=== PATIENT | male | born 1935 | race Caucasian/White ===

== ENCOUNTER 2017-09-14 19:39 | Emergency (ER) | payer MEDICARE, OTHER ==
[2017-09-14] MEDS ORDERED: DIPH,PERTUS(ACELL)TETVAC-LF 0.5 ML VIAL IM ONE (20:25)
[2017-09-14] MEDS ORDERED: TOPICAL SKIN ADHESIVE 1 EACH AMP TOPICAL ONE (20:25)
--- NOTE | 2017-09-14 21:20 | ED ---
Fall HPI - General Chief Complaint: Fall Stated Complaint: fall/arm lac Time Seen by Provider: 09/14/17 20:20 Source: patient, RN notes reviewed, old records reviewed Mode of arrival: wheelchair - History of Present Illness Initial Comments: 82-year-old male presents and emergency department today to complain of skin tears over his left forearm. Your boys he was walking and tripped he. He reports he landed with in his left forearm on the wall and counter. He is on blood thinners. No other injuries. HE does not know if tetanus is up todate. - Related Data Home Medications Medication Instructions Recorded Confirmed Atorvastatin [Lipitor] 80 mg PO HS 01/31/15 09/14/17 Clopidogrel Bisulfate [Clopidogrel] 75 mg PO DAILY 01/31/15 09/14/17 Lisinopril 20 mg PO QAM 01/31/15 09/14/17 Multivitamins, Thera [Multivitamin 1 tab PO DAILY 01/31/15 09/14/17 (formulary)] Selenium 200 mcg PO DAILY 01/31/15 09/14/17 Donepezil HCl [Aricept] 10 mg PO HS 09/17/15 09/14/17 Lycopene 10 mg PO DAILY 09/14/17 09/14/17 Turmeric Root Extract [Turmeric] 1,000 mg PO DAILY 09/14/17 09/14/17 Allergies Allergy/AdvReac Type Severity Reaction Status Date / Time No Known Allergies Allergy Verified 09/14/17 20:21 Review of Systems ROS Statement: Those systems with pertinent positive or pertinent negative responses have been documented in the HPI. ROS Other: All systems not noted in ROS Statement are negative. Past Medical History Past Medical History: Cancer, Dementia, Hyperlipidemia, Hypertension, Memory Impairment, Osteoarthritis (OA), Prostate Disorder, Vascular Disorder Additional Past Medical History / Comment(s): hx prostates and skin cancer, PAST ASBETOES EXPOSURE History of Any Multi-Drug Resistant Organisms: None Reported Past Surgical History: Appendectomy, Joint Replacement Additional Past Surgical History / Comment(s): 02/12/15 Total L hip arthroplasty. removal of skin cancer from face, mass removed from base of spine , vascular surgery leg, jabari cataracts, 6-13-16 TOTAL RT HIP Past Anesthesia/Blood Transfusion Reactions: No Reported Reaction Past Psychological History: Depression Smoking Status: Former smoker Past Alcohol Use History: Occasional Past Drug Use History: None Reported - Past Family History Brother(s) Family Medical History: Deep Vein Thrombosis (DVT) Mother Family Medical History: No Reported History Father Additional Family Medical History / Comment(s): AT AGE 50 General Exam - General Exam Comments Initial Comments: Well appearing 82 year old male, no distress. Limitations: no limitations General appearance: alert, in no apparent distress Head exam: Present: atraumatic, normocephalic, normal inspection Eye exam: Present: normal appearance, PERRL, EOMI. Absent: scleral icterus, conjunctival injection, periorbital swelling ENT exam: Present: normal exam, mucous membranes moist Neck exam: Present: normal inspection. Absent: tenderness, meningismus, lymphadenopathy Respiratory exam: Present: normal lung sounds bilaterally. Absent: respiratory distress, wheezes, rales, rhonchi, stridor Cardiovascular Exam: Present: regular rate, normal rhythm, normal heart sounds. Absent: systolic murmur, diastolic murmur, rubs, gallop, clicks GI/Abdominal exam: Present: soft, normal bowel sounds. Absent: distended, tenderness, guarding, rebound, rigid Extremities exam: Present: normal inspection, full ROM, normal capillary refill , other (2 2cm skin tears over left forearm. ). Absent: tenderness, pedal edema , joint swelling, calf tenderness Back exam: Present: normal inspection Course Vital Signs 09/14/17 09/14/17 19:42 21:37 Temperature 98.5 F 97.6 F Pulse Rate 73 78 Respiratory 18 16 Rate Blood Pressure 183/77 157/78 O2 Sat by Pulse 99 99 Oximetry Procedures - Laceration Laceration #1 Indication: laceration Site: upper extremity (forearm) Size (cm): 2 Description: linear Depth: simple, single layer Pre-repair: wound explored, irrigated extensively Type of Sutures: other (steri strips) Number of Sutures: 2 Patient Tolerated Procedure: well, no complications Laceration #2 Site: upper extremity (left proximal forearm, ) Size (cm): 3 Description: flap Depth: simple, single layer Pre-repair: wound explored, irrigated extensively Type of Sutures: other (dermabond) Size of Sutures: other Patient Tolerated Procedure: well, no complications Additional Comments: Also used wound seal to stop bleeding. Medical Decision Making - Medical Decision Making 82-year-old male presents and emergency department today to complain of skin tears over his left forearm. Your boys he was walking and tripped he. He reports he landed with in his left forearm on the wall and counter. He is on blood thinners, wound was cleaned.Patient was given tetanus shot. Patient wound continued to bleed, wound seal was used to help form clot. Patient first wound is closed with steri strips, second with demrabond. Discussed Monitoring for infection and wound care. Disposition Clinical Impression: Skin tear Disposition: HOME SELF-CARE Condition: Good Instructions: Fall Prevention for Older Adults (ED), Skin Tear (ED) Additional Instructions: The wound covered for the first 24-48 hours. Shower with a strainer over the site. Afterwards he taken off monitor for any signs of infection including redness swelling or drainage. Cleanse it very gently with water. Patient only should wear a bandage over the area to prevent reopening. Is patient prescribed a controlled substance at d/c from ED?: No When asked, does pt state using other controlled substances?: No If prescribed controlled substance>3 days was MAPS reviewed?: No If opioid is for acute pain is fill amount 7 days or less?: No If Rx opioid, was Start Talking consent form obtained?: No Referrals: Michael Hart MD [Primary Care Provider] - 1-2 days Time of Disposition: 21:19
[2017-09-14 21:39] VITALS: BP 157/78; PULSE 78; RESP 16; TEMP 97.6
== END 2017-09-14 21:39 | disposition home or self-care (01) ==
LOC: EC 19:39
DX: S51.812A Laceration without foreign body of left forearm, initial encounter (principal); F03.90 Unspecified dementia, unspecified severity, without behavioral disturbance, psychotic disturbance, mood disturbance, and anxiety; E78.5 Hyperlipidemia, unspecified; I10 Essential (primary) hypertension; F32.9 Major depressive disorder, single episode, unspecified; Z23 Encounter for immunization; Z79.02 Long term (current) use of antithrombotics/antiplatelets; Z79.899 Other long term (current) drug therapy; Z87.891 Personal history of nicotine dependence; W01.198A Fall on same level from slipping, tripping and stumbling with subsequent striking against other object, initial encounter; Y93.01 Activity, walking, marching and hiking; Y92.009 Unspecified place in unspecified non-institutional (private) residence as the place of occurrence of the external cause
CPT/HCPCS: 12002; 90471; 90715; 99283

== ENCOUNTER → 2018-01-04 | Outpatient (CLI) | payer MEDICARE, OTHER ==
--- NOTE | 2018-01-04 14:34 | XR ---
EXAMINATION TYPE: XR chest 2V DATE OF EXAM: 01/04/2018 COMPARISON: Prior chest x-ray 02/14/2015 HISTORY: Cough TECHNIQUE: Frontal and lateral views of the chest are obtained. FINDINGS: There is no focal air space opacity, pleural effusion, or pneumothorax seen. The cardiac silhouette size is within normal limits. The osseous structures are intact. IMPRESSION: No acute cardiopulmonary process.
== END | disposition home or self-care (01) ==
LOC: RADXRMAIN 12:07
PROVIDERS: ATTEND Internal Medicine
DX: R05 Cough (principal)
CPT/HCPCS: 71046

== ENCOUNTER → 2018-01-28 | Outpatient (CLI) | payer MEDICARE, OTHER ==
--- NOTE | 2018-01-29 10:48 | ECHOF ---
Referral Reason:R06.02 Shortness Of Breath MEASUREMENTS -------- HEIGHT: 175.3 cm WEIGHT: 68.9 kg BP: 201/89 RVIDd: 2.7 cm (< 3.3) IVSd: 1.2 cm (0.6 - 1.1) LVIDd: 4.4 cm (3.9 - 5.3) LVPWd: 1.2 cm (0.6 - 1.1) IVSs: 1.7 cm LVIDs: 2.5 cm LVPWs: 1.4 cm LA Diam: 3.0 cm (2.7 - 3.8) LAESV Index (A-L): 20.62 ml/m Ao Diam: 3.2 cm (2.0 - 3.7) AV Cusp: 1.9 cm (1.5 - 2.6) MV EXCURSION: 16.594 mm (> 18.000) MV EF SLOPE: 68 mm/s (70 - 150) EPSS: 0.1 cm MV E Singh: 0.69 m/s MV DecT: 237 ms MV A Singh: 0.87 m/s MV E/A Ratio: 0.79 FINDINGS -------- Sinus rhythm. This was a technically adequate study. The left ventricular size is normal. There is borderline concentric left ventricular hypertrophy. Overall left ventricular systolic function is normal with, an EF between 55 - 60 %. The right ventricle is normal in size. The left atrial size is normal. The right atrium is normal in size. There is mild aortic valve sclerosis. The mitral valve leaflets are mildly thickened. Mild mitral annular calcification present. There is trace to mild mitral regurgitation. The tricuspid valve appears structurally normal. The pulmonic valve was not well visualized. The aortic root size is normal. Normal inferior vena cava with normal inspiratory collapse consistent with estimated right atrial pre ssure of 5 mmHg. There is no pericardial effusion. CONCLUSIONS -------- 1. Sinus rhythm. 2. This was a technically adequate study. 3. The left ventricular size is normal. 4. There is borderline concentric left ventricular hypertrophy. 5. Overall left ventricular systolic function is normal with, an EF between 55 - 60 %. 6. The right ventricle is normal in size. 7. The left atrial size is normal. 8. The right atrium is normal in size. 9. There is mild aortic valve sclerosis. 10. The mitral valve leaflets are mildly thickened. 11. Mild mitral annular calcification present. 12. There is trace to mild mitral regurgitation. 13. The tricuspid valve appears structurally normal. 14. The pulmonic valve was not well visualized. 15. The aortic root size is normal. 16. Normal inferior vena cava with normal inspiratory collapse consistent with estimated right atrial pressure of 5 mmHg. 17. There is no pericardial effusion. [employer]: Rajni Joiner RDCS
== END | disposition home or self-care (01) ==
LOC: RADECHMAIN 16:04
PROVIDERS: ATTEND Internal Medicine
DX: I08.0 Rheumatic disorders of both mitral and aortic valves (principal)
CPT/HCPCS: 93306

== ENCOUNTER 2018-11-24 20:49 | Inpatient (IN) | payer MEDICARE, OTHER ==
--- NOTE | 2018-11-24 21:46 | ED ---
Syncope HPI - General Chief Complaint: Syncope Stated Complaint: poss syncope Time Seen by Provider: 11/24/18 21:05 Source: patient Mode of arrival: ambulatory Limitations: no limitations - History of Present Illness Initial Comments: 's patient is an 83-year-old man brought to be evaluated after he had an episode in which he became poorly responsive. History is from the patient and his , as he does not remember all of the events. Patient's relates that they had been at a gathering on the road, and the patient went home a few minutes before she did. When she returned home she states she found him lying on the porch and he was not able to get up. When she was finally able to help him up he went into the bathroom to have bowel movement and then became briefly unresponsive. She states that after discharge arouse him for a brief period of time he did become responsive but he does not recall the episode. The patient states that he feels about at his baseline now. He is denying pains anywhere. No dyspnea. No nausea or vomiting. He did have an episode of diarrhea just prior to the episode when he became unresponsive. No blood or tarry stool noted. MD Complaint: loss of consciousness Onset/Timin -: hour(s) -: second(s) Witnessed: yes - by bystander Injuries Sustained Associated with Event: None Current Symptoms: back to baseline Context: other (Related to bowel movement) Treatments Prior to Arrival: none - Related Data Home Medications Medication Instructions Recorded Confirmed Atorvastatin [Lipitor] 80 mg PO HS 01/31/15 11/24/18 Clopidogrel Bisulfate [Clopidogrel] 75 mg PO DAILY 01/31/15 11/24/18 Donepezil HCl [Aricept] 10 mg PO HS 09/17/15 11/24/18 Lisinopril [Zestril] 20 mg PO DAILY 11/24/18 11/24/18 Allergies Allergy/AdvReac Type Severity Reaction Status Date / Time No Known Allergies Allergy Verified 11/24/18 21:50 Review of Systems ROS Statement: Those systems with pertinent positive or pertinent negative responses have been documented in the HPI. ROS Other: All systems not noted in ROS Statement are negative. Constitutional: Denies: fever, chills Eyes: Denies: vision change Respiratory: Denies: cough, dyspnea Cardiovascular: Reports: as per HPI, syncope. Denies: chest pain, palpitations, orthopnea, edema Gastrointestinal: Reports: diarrhea. Denies: abdominal pain, nausea, vomiting, constipation, melena, hematochezia Genitourinary: Denies: dysuria Musculoskeletal: Denies: back pain, arthralgia Neurological: Denies: headache, weakness, confusion Past Medical History Past Medical History: Cancer, Dementia, Hyperlipidemia, Hypertension, Memory Impairment, Osteoarthritis (OA), Prostate Disorder, Vascular Disorder Additional Past Medical History / Comment(s): hx prostates and skin cancer, PAST ASBETOES EXPOSURE History of Any Multi-Drug Resistant Organisms: None Reported Past Surgical History: Appendectomy, Joint Replacement Additional Past Surgical History / Comment(s): 02/12/15 Total L hip arthroplasty. removal of skin cancer from face, mass removed from base of spine, vascular surgery leg, jabari cataracts, 09-24-15 TOTAL RT HIP Past Anesthesia/Blood Transfusion Reactions: No Reported Reaction Past Psychological History: Depression Smoking Status: Former smoker Past Alcohol Use History: Occasional Past Drug Use History: None Reported - Past Family History Brother(s) Family Medical History: Deep Vein Thrombosis (DVT) Mother Family Medical History: No Reported History Father Additional Family Medical History / Comment(s): AT AGE 50 General Exam Limitations: no limitations General appearance: alert, in no apparent distress Head exam: Present: atraumatic, normocephalic Eye exam: Present: normal appearance. Absent: scleral icterus, conjunctival injection ENT exam: Present: mucous membranes dry Neck exam: Present: normal inspection, full ROM Respiratory exam: Present: normal lung sounds bilaterally. Absent: respiratory distress, wheezes, rales, rhonchi, stridor Cardiovascular Exam: Present: regular rate, normal rhythm, systolic murmur. Absent: diastolic murmur, rubs, gallop GI/Abdominal exam: Present: soft. Absent: distended, tenderness, guarding, rebound, rigid, mass Extremities exam: Present: normal inspection, normal capillary refill. Absent: pedal edema, calf tenderness Back exam: Present: normal inspection. Absent: CVA tenderness (R), CVA tenderness (L) Neurological exam: Present: alert, oriented X3, CN II-XII intact. Absent: motor sensory deficit Skin exam: Present: warm, dry, intact, normal color. Absent: rash Course Vital Signs 08/11/24/18 11/24/18 21:04 21:51 22:30 Temperature 97.0 F L Pulse Rate 69 60 61 Respiratory 18 18 18 Rate Blood Pressure 138/70 108/90 123/47 O2 Sat by Pulse 100 98 97 Oximetry 11/24/18 23:30 Temperature Pulse Rate 80 Respiratory 18 Rate Blood Pressure 128/50 O2 Sat by Pulse 96 Oximetry EKG Findings - EKG Results: EKG: interpreted by ERMD, sinus rhythm, normal axis, normal ST/T EKG shows: bradycardia (Rate 59 bpm) - Blocks, [place], Hypertrophy, ST Abn: AV and intraventricular conduction: right bundle branch block (fixed/intermittent, complete/incomplete) Medical Decision Making - Lab Data Result diagrams: 11/24/18 21:30 11/24/18 21:30 Lab Results 11/24/18 11/24/18 11/24/18 Range/Units 21:30 21:30 21:30 WBC 5.9 (3.8-10.6) k/uL RBC 3.59 L (4.30-5.90) m/uL Hgb 11.4 L (13.0-17.5) gm/dL Hct 34.5 L (39.0-53.0) % MCV 96.3 (80.0-100.0) fL MCH 31.7 (25.0-35.0) pg MCHC 32.9 (31.0-37.0) g/dL RDW 14.8 (11.5-15.5) % Plt Count 185 (150-450) k/uL Neutrophils % 76 % Lymphocytes % 12 % Monocytes % 5 % Eosinophils % 5 % Basophils % 1 % Neutrophils # 4.5 (1.3-7.7) k/uL Lymphocytes # 0.7 L (1.0-4.8) k/uL Monocytes # 0.3 (0-1.0) k/uL Eosinophils # 0.3 (0-0.7) k/uL Basophils # 0.0 (0-0.2) k/uL PT 10.0 (9.0-12.0) sec INR 0.9 (<1.2) APTT 18.6 L (22.0-30.0) sec Sodium 140 (137-145) mmol/L Potassium 4.8 (3.5-5.1) mmol/L Chloride 111 H (98-107) mmol/L Carbon Dioxide 17 L (22-30) mmol/L Anion Gap 12 mmol/L BUN 48 H (9-20) mg/dL Creatinine 2.18 H (0.66-1.25) mg/dL Est GFR (CKD-EPI)AfAm 31 (>60 ml/min/1.73 sqM) Est GFR (CKD-EPI)NonAf 27 (>60 ml/min/1.73 sqM) Glucose 129 H (74-99) mg/dL Calcium 9.0 (8.4-10.2) mg/dL Total Bilirubin 0.3 (0.2-1.3) mg/dL AST 26 (17-59) U/L ALT 21 (21-72) U/L Alkaline Phosphatase 65 (38-126) U/L Troponin I (0.000-0.034) ng/mL Total Protein 6.2 L (6.3-8.2) g/dL Albumin 3.8 (3.5-5.0) g/dL Urine Color Urine Appearance (Clear) Urine pH (5.0-8.0) Ur Specific [place] (1.001-1.035) Urine Protein (Negative) Urine Glucose (UA) (Negative) Urine Ketones (Negative) Urine Blood (Negative) Urine Nitrite (Negative) Urine Bilirubin (Negative) Urine Urobilinogen (<2.0) mg/dL Ur Leukocyte Esterase (Negative) 11/24/18 11/24/18 Range/Units 21:30 23:15 WBC (3.8-10.6) k/uL RBC (4.30-5.90) m/uL Hgb (13.0-17.5) gm/dL Hct (39.0-53.0) % MCV (80.0-100.0) fL MCH (25.0-35.0) pg MCHC (31.0-37.0) g/dL RDW (11.5-15.5) % Plt Count (150-450) k/uL Neutrophils % % Lymphocytes % % Monocytes % % Eosinophils % % Basophils % % Neutrophils # (1.3-7.7) k/uL Lymphocytes # (1.0-4.8) k/uL Monocytes # (0-1.0) k/uL Eosinophils # (0-0.7) k/uL Basophils # (0-0.2) k/uL PT (9.0-12.0) sec INR (<1.2) APTT (22.0-30.0) sec Sodium (137-145) mmol/L Potassium (3.5-5.1) mmol/L Chloride (98-107) mmol/L Carbon Dioxide (22-30) mmol/L Anion Gap mmol/L BUN (9-20) mg/dL Creatinine (0.66-1.25) mg/dL Est GFR (CKD-EPI)AfAm (>60 ml/min/1.73 sqM) Est GFR (CKD-EPI)NonAf (>60 ml/min/1.73 sqM) Glucose (74-99) mg/dL Calcium (8.4-10.2) mg/dL Total Bilirubin (0.2-1.3) mg/dL AST (17-59) U/L ALT (21-72) U/L Alkaline Phosphatase (38-126) U/L Troponin I 0.042 H* (0.000-0.034) ng/mL Total Protein (6.3-8.2) g/dL Albumin (3.5-5.0) g/dL Urine Color Yellow Urine Appearance Clear (Clear) Urine pH 5.0 (5.0-8.0) Ur Specific [place] 1.019 (1.001-1.035) Urine Protein Trace H (Negative) Urine Glucose (UA) Negative (Negative) Urine Ketones Negative (Negative) Urine Blood Negative (Negative) Urine Nitrite Negative (Negative) Urine Bilirubin Negative (Negative) Urine Urobilinogen <2.0 (<2.0) mg/dL Ur Leukocyte Esterase Negative (Negative) Disposition Clinical Impression: Syncope, Elevated troponin I level Disposition: HOME SELF-CARE Condition: Fair Is patient prescribed a controlled substance at d/c from ED?: No Referrals: Michael Hart MD [Primary Care Provider] - 1-2 days
[2018-11-24 21:48] LABS: Basophils % (A) 1 %; Eosinophils # (A) 0.3 k/uL (0-0.7); Eosinophils % (A) 5 %; HCT 34.5 % (39.0-53.0); HGB 11.4 gm/dL (13.0-17.5); Lymphocytes # (A) 0.7 k/uL (1.0-4.8); Lymphocytes % (A) 12 %; MCH 31.7 pg (25.0-35.0); MCHC 32.9 g/dL (31.0-37.0); MCV 96.3 fL (80.0-100.0); Mean Platelet Volume 7.6; Monocytes # (A) 0.3 k/uL (0-1.0); Monocytes % (A) 5 %; Neutrophils # (A) 4.5 k/uL (1.3-7.7); Neutrophils % (A) 76 %; Platelet Count 185 k/uL (150-450); RBC 3.59 m/uL (4.30-5.90); RDW 14.8 % (11.5-15.5); WBC 5.9 k/uL (3.8-10.6)
[2018-11-24 22:02] LABS: INR 0.9 (<1.2)
[2018-11-24 22:03] LABS: Albumin 3.8 g/dL (3.5-5.0); Potassium 4.8 mmol/L (3.5-5.1); Total Bilirubin 0.3 mg/dL (0.2-1.3); Total Protein 6.2 g/dL (6.3-8.2)
[2018-11-24 22:26] LABS: Partial Thromboplastin Time 18.6 sec (22.0-30.0)
--- NOTE | 2018-11-24 22:38 | CT ---
EXAM: CT Head Without Intravenous Contrast CLINICAL HISTORY: ITS.REASON CT Reason: Pain TECHNIQUE: Axial computed tomography images of the head/brain without intravenous contrast. CTDI is 49.27 mGy and DLP is 1091.4 mGy-cm. This CT exam was performed using one or more of the following dose reduction techniques: automated exposure control, adjustment of the mA and/or kV according to patient size, and/or use of iterative reconstruction technique. COMPARISON: MRI of 01/10/15. FINDINGS: Brain: No intracranial hemorrhage or mass effect. No clear acute large vessel territorial infarct. Involutional and microvascular ischemic changes. Calcified skull base arteries. Ventricles: Unremarkable. No ventriculomegaly. Bones/joints: Unremarkable. No acute fracture. Soft tissues: Unremarkable. Sinuses: Unremarkable as visualized. No acute sinusitis. Mastoid air cells: Unremarkable as visualized. No mastoid effusion. IMPRESSION: No acute intracranial process
[2018-11-24] MEDS ORDERED: SODIUM CHLORIDE 0.9% 500 ML 500 ML IV STA (23:39)
[2018-11-24 23:55] LABS: Appearance,Urine Clear (Clear); Bilirubin,Urine Negative (Negative); Blood,Urine Negative (Negative); Color,Urine Yellow; Glucose,Urine (UA) Negative (Negative); Ketones,Urine Negative (Negative); Leukocyte Esterase,Urine Negative (Negative); Nitrite,Urine Negative (Negative); Protein,Urine Trace (Negative); Specific Gravity,Urine 1.019 (1.001-1.035); Urobilinogen,Urine <2.0 mg/dL (<2.0)
[2018-11-25] MEDS ORDERED: NITROGLYCERIN SL TABS 0.4 MG TAB SUBLINGUAL PRN (00:05)
--- NOTE | 2018-11-25 00:21 | XR ---
EXAM: XR Chest, 1 View CLINICAL HISTORY: ITS.REASON XR Reason: Pain TECHNIQUE: Frontal view of the chest. COMPARISON: 01/04/18 FINDINGS: Lungs: Unremarkable. No consolidation. Pleural space: Unremarkable. No pneumothorax. Heart: No cardiomegaly. Mediastinum: Aortic calcification. Bones/joints: Degenerative changes. Thoracic dextrocurvature.. IMPRESSION: No evidence of acute pulmonary disease
[2018-11-25] MEDS: SODIUM CHLORIDE 0.9% 1,000 ML IV SCH (01:05)
[2018-11-25 02:13] VITALS: BMI 28.6
--- NOTE | 2018-11-25 08:40 | HP ---
HISTORY AND PHYSICAL Mr. Mena is an 83-year-old gentleman who was brought by EMS to the emergency room last night after having had a blackout spell yesterday evening. Apparently, according to his who was present this morning, she states that her and went to a local picnic on their block. The patient had to walk a little ways back and forth to the picnic and back to his house. Apparently, his leg was hurting, which is not unusual. Patient was having trouble getting up from a sitting position on the porch and with help of a friend, she was able to get the patient to sit on the commode. Apparently, while on the commode, he was complaining of neck pain and then apparently had a change in mental status where he was shaking diffusely both upper and lower extremities. The states that lasted about a minute as she called several people and called the EMS. The patient himself does not remember anything except coming home from the picnic. Apparently, he had an episode of loose stool at the time and was feeling nauseated according to the . She states he did not completely pass out, but did not know what was going on at the time of the shaking and she states that lasted about a minute. Then when EMS came, the patient seemed to respond and was able to get up and was brought to the emergency room. On presentation, his mental status appeared to be improved. PAST MEDICAL HISTORY: Positive for previous right hip replacement and a vascular stenting of the lower extremities. Patient though also has a history of hypertension, hyperlipidemia, history of previous prostate cancer, chronic stage III renal failure along with poly osteoarthritis. There is an element also of cognitive impairment. SURGICAL HISTORY: Includes the left and right hip replacements back in 2014 and 2016. He has had appendectomy, hernia repair, and previous vascular stenting of the lower extremities. There is a history of past asbestos exposure apparently. He has had bilateral cataracts. Apparently he is a former smoker. MEDICATIONS: Include lisinopril 20 mg daily, Aricept 10 mg, Plavix 75 mg and atorvastatin 80 mg, and these have been stable chronic long-term medications. No known allergies. Patient prior to the episode had been doing well. No unusual chest pain or shortness of breath. He does get some right leg pain with any distant ambulation. He did have the nausea and an episode of loose stool during the acute episode as described above, but generally he has been doing well without any lower leg edema. No unusual headaches or visual disturbances or focal weakness noted. FAMILY HISTORY: Positive for mother who had a CVA at the age of 60. SOCIAL HISTORY: Patient is a previous smoker but has not smoked for many years. No excessive alcohol usage and lives locally with his on a rather independent basis for his age. On examination, he is lying in bed, generally alert this morning, pleasant, in no acute distress. Temperature is 98.6. His pulses range from 60-80 and his respirations are 16 and nonlabored. Blood pressure is 137/81. He is 99% saturated on room air. His neck is not stiff. There are no signs of any trauma. Extraocular movements are intact. No adenopathy or thyromegaly detected. Lungs were clear. Heart tones were regular without murmurs or rubs appreciated. Abdomen is soft and nontender. Extremities revealed no edema. Neurologically, as mentioned, he seemed to be overall alert, oriented, moving all extremities without focal weakness and no definite cranial nerve deficits were noted. LABORATORY TESTING: Revealed a white count of 5.9, hemoglobin 11.4 and a platelet count of 185. INR was 0.9. PTT of 18.6. His sodium is 140, his potassium 4.8, chloride is 111 with a CO2 content of 17. His BUN is 48 with a creatinine 2.18, giving him a GFR of 27 and his blood sugar was 129. Other liver function tests were good. Albumin was 3.8. His troponin though was elevated 0.042 and did rise on second determinations of 0.054. Urinalysis was essentially negative, leukocyte esterase was negative, trace protein was seen. Patient did have a chest x-ray which showed no evidence of acute pulmonary process. EKG showed a sinus bradycardia with right bundle branch block pattern. No definite acute ischemic changes were noted and patient did have a CAT scan of the brain which showed no acute intracranial process. IMPRESSION: Overall impression at this point is patient did have an episode with change of consciousness while he was on the commode last night associated with shaking. is unsure if there was any incontinence with the episode. He did not pass out on the commode. The states that he did not know what was happening and the episode as best as she can determine was about a minute in length. The patient also does have elevated troponin value. The past medical history as described with some mild cognitive impairment, risk factors of hypertension, hyperlipidemia, chronic kidney disease, stage 3 to 4 at this time and generalized osteoarthritis and previous vascular disease to the lower extremities. PLANS: Are to continue his home medications. Continue to monitor. Two troponins have been high and will ask Cardiology to see and also ask Neurology to see regarding the episode of loss of consciousness that occurred which could possibly be a vasovagal episode, but seem to last a fair amount of time in length and associated with diffuse shaking according to the . Further recommendations, treatment pending clinical response and results of above. MMODL / IJN: [id number] /
--- NOTE | 2018-11-25 08:48 | P.CRDCN ---
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 Acosta several years ago, hypertension, dyslipidemia, and history of underlying dementia, was brought by his family to the emergency room after a brief episode of loss of consciousness yesterday. The patient was at the [facility] with his neighbors when he was not feeling well. He went home with his and he went to the bathroom because he felt that he is having diarrhea. Apparently in the bathroom, the patient did have a brief episode of loss of consciousness. No symptoms of dizziness or lightheadedness, chest pain or chest discomfort, shortness of breath, or any feeling of heart racing or fluttering. The patient never had similar episodes in the past. Because of that he was brought by his family to the emergency room. No history of coronary artery disease, but he does have peripheral arterial disease. Beside that he does have hypertension and dyslipidemia. The patient's stated that the patient was not eating and drinking well lately. He underwent a diagnostic workup in the emergency room. The creatinine came in to be elevated and around 2.1 which is about his baseline. The troponin was checked and came to be slightly abnormal. The EKG showed sinus rhythm without any significant ST or T-wave abnormalities noted. Currently the patient is on dual antiplatelet therapy with aspirin as well as Plavix and he is also on statin. The patient's stated that the patient does have underlying dementia and he dementia lately has been more than mild. On physical examination, he does have bilateral carotid bruit which seems to be worse on the right side than the left side. Past Medical History Past Medical History: Cancer, Dementia, Hyperlipidemia, Hypertension, Memory Impairment, Osteoarthritis (OA), Prostate Disorder, Vascular Disorder Additional Past Medical History / Comment(s): hx prostates and skin cancer, PAST ASBETOES EXPOSURE History of Any Multi-Drug Resistant Organisms: None Reported Past Surgical History: Appendectomy, Joint Replacement Additional Past Surgical History / Comment(s): 02/12/15 Total L hip arthroplasty. 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 PT IS INDEPENDANT, NO OUTSIDES SERVICES. Smoking Status: Former smoker Past Alcohol Use History: Occasional Additional Past Alcohol Use History / Comment(s): QUIT SMOKING 1958,STARTED SMOKING 1950,DRINKS 1 BEER PER DAY Past Drug Use History: None Reported - Past Family History Brother(s) Family Medical History: Deep Vein Thrombosis (DVT) Mother Family Medical History: No Reported History Father Additional Family Medical History / Comment(s): AT AGE 50 Medications and Allergies Home Medications Medication Instructions Recorded Confirmed Type Atorvastatin [Lipitor] 80 mg PO HS 01/31/15 11/24/18 History Clopidogrel Bisulfate [Clopidogrel] 75 mg PO DAILY 01/31/15 11/24/18 History Donepezil HCl [Aricept] 10 mg PO HS 09/17/15 11/24/18 History Lisinopril [Zestril] 20 mg PO DAILY 11/24/18 11/24/18 History Allergies Allergy/AdvReac Type Severity Reaction Status Date / Time No Known Allergies Allergy Verified 11/24/18 21:50 Physical Exam Vitals: Vital Signs Temp Pulse Pulse Resp BP BP Pulse Ox 11/25/18 03:01 98.6 F 63 16 137/81 99 11/25/18 01:02 98 F 61 16 129/57 98 11/24/18 23:30 80 18 128/50 96 11/24/18 22:30 61 18 123/47 97 11/24/18 21:51 60 18 108/90 98 11/24/18 21:04 97.0 F L 69 18 138/70 100 Intake and Output 11/24/18 11/25/18 11/25/18 22:59 06:59 14:59 Intake Total 0 Balance 0 Intake: Oral 0 Other: Weight 68.039 kg 66.6 kg - Constitutional General appearance: no acute distress - Respiratory Respiratory: bilateral: CTA - Cardiovascular Rhythm: regular Heart sounds: normal: S1, S2 Results 11/24/18 21:30 11/24/18 21:30 Cardiac Enzymes 11/24/18 11/24/18 11/25/18 Range/Units 21:30 21:30 04:11 AST 26 (17-59) U/L Troponin I 0.042 H* 0.054 H* (0.000-0.034) ng/mL Coagulation 11/24/18 Range/Units 21:30 PT 10.0 (9.0-12.0) sec APTT 18.6 L (22.0-30.0) sec CBC 11/24/18 Range/Units 21:30 WBC 5.9 (3.8-10.6) k/uL RBC 3.59 L (4.30-5.90) m/uL Hgb 11.4 L (13.0-17.5) gm/dL Hct 34.5 L (39.0-53.0) % Plt Count 185 (150-450) k/uL Comprehensive Metabolic Panel 11/24/18 Range/Units 21:30 Sodium 140 (137-145) mmol/L Potassium 4.8 (3.5-5.1) mmol/L Chloride 111 H (98-107) mmol/L Carbon Dioxide 17 L (22-30) mmol/L BUN 48 H (9-20) mg/dL Creatinine 2.18 H (0.66-1.25) mg/dL Glucose 129 H (74-99) mg/dL Calcium 9.0 (8.4-10.2) mg/dL AST 26 (17-59) U/L ALT 21 (21-72) U/L Alkaline Phosphatase 65 (38-126) U/L Total Protein 6.2 L (6.3-8.2) g/dL Albumin 3.8 (3.5-5.0) g/dL Current Medications Generic Name Dose Route Start Last Admin Trade Name Freq PRN Reason Stop Dose Admin Aspirin 325 mg 11/26/18 09:00 Aspirin PO DAILY [facility] Atorvastatin Calcium 80 mg 11/25/18 21:00 Lipitor PO HS [facility]ALL Clopidogrel Bisulfate 75 mg 11/25/18 09:00 Plavix PO DAILY [facility] Donepezil HCl 10 mg 11/25/18 21:00 Aricept PO HS [facility]ALL Sodium Chloride 1,000 mls @ 20 mls/hr 11/25/18 00:15 11/25/18 01:05 Saline 0.9% IV 20 mls/hr .Q24H [facility]ALL Administration Lisinopril 20 mg 11/25/18 09:00 Zestril PO DAILY [facility] Nitroglycerin 0.4 mg 11/25/18 00:05 Nitrostat SUBLINGUAL Q5M PRN Chest Pain Intake and Output 11/24/18 11/25/18 11/25/18 22:59 06:59 14:59 Intake Total 0 Balance 0 Intake: Oral 0 Other: Weight 68.039 kg 66.6 kg 11/24/18 21:30 11/24/18 21:30 Assessment and Plan Assessment: Assessment #1 an episode of loss of consciousness, brief, likely related to vasovagal versus orthostatic hypertension #2 acute on chronic renal failure #3 probably dehydration #4 peripheral arterial disease #5 hypertension #6 dyslipidemia Plan #1 consider conservative approach for the mildly abnormal cardiac enzymes, giving the absence of chest pain or discomfort, the acute renal failure, the age, as well as the underlying dementia #2 he is on dual antiplatelet therapy along with a statin which we are going to continue #3 obtain an echocardiogram was Doppler #4 carotid duplex study external #5 follow-up with the patient Thank you for allowing us participate in his care and we will continue following up with him
[2018-11-25] MEDS: LISINOPRIL 20 MG TAB PO SCH (08:49)
[2018-11-25] MEDS: CLOPIDOGREL 75 MG TAB PO SCH (08:49)
--- NOTE | 2018-11-25 11:20 | ECHOF ---
Referral Reason:nstemi MEASUREMENTS -------- HEIGHT: 175.3 cm WEIGHT: 66.2 kg BP: 137/81 IVSd: 1.3 cm (0.6 - 1.1) LVIDd: 3.6 cm (3.9 - 5.3) LVPWd: 1.5 cm (0.6 - 1.1) IVSs: 1.8 cm LVIDs: 2.7 cm LVPWs: 1.8 cm LA Diam: 3.6 cm (2.7 - 3.8) RVIDd: 2.6 cm (< 3.3) LAESV Index (A-L): 21.49 ml/m Ao Diam: 3.0 cm (2.0 - 3.7) AV Cusp: 1.4 cm (1.5 - 2.6) EPSS: 1.1 cm MV E Singh: 0.87 m/s MV DecT: 258 ms MV A Singh: 0.90 m/s MV E/A Ratio: 0.96 MV EF SLOPE: 42.32 mm/s (70 - 150) MV EXCURSION: 11.06 mm (> 18.000) FINDINGS -------- Sinus rhythm. This was a technically good study. The left ventricular size is normal. There is moderate concentric left ventricular hypertrophy. O verall left ventricular systolic function is normal with, an EF between 60 - 65 %. The right ventricle is normal in size. Normal LA size by volume 22+/-6 ml/m2. The right atrium is normal in size. Interatrial and interventricular septum intact. There is mild aortic valve sclerosis. The mitral valve leaflets are mildly thickened. There is trace mitral regurgitation. The tricuspid valve appears structurally normal. There is no pulmonic regurgitation present. The aortic root size is normal. Normal inferior vena cava with normal inspiratory collapse consistent with estimated right atrial pre ssure of 5 mmHg. There is no pericardial effusion. CONCLUSIONS -------- 1. Sinus rhythm. 2. This was a technically good study. 3. The left ventricular size is normal. 4. There is moderate concentric left ventricular hypertrophy. 5. Overall left ventricular systolic function is normal with, an EF between 60 - 65 %. 6. The right ventricle is normal in size. 7. Normal LA size by volume 22+/-6 ml/m2. 8. The right atrium is normal in size. 9. Interatrial and interventricular septum intact. 10. There is mild aortic valve sclerosis. 11. The mitral valve leaflets are mildly thickened. 12. There is trace mitral regurgitation. 13. The tricuspid valve appears structurally normal. 14. There is no pulmonic regurgitation present. 15. The aortic root size is normal. 16. Normal inferior vena cava with normal inspiratory collapse consistent with estimated right atrial pressure of 5 mmHg. 17. There is no pericardial effusion. BLOWER ROOM ATTENDANT: Rajni Joiner RDCS
--- NOTE | 2018-11-25 12:13 | P.CNNES ---
History of Present Illness Consult date: 11/25/18 Reason for Consult: Syncope Chief complaint: Syncope History of Present Illness: REFERRING PHYSICIAN: Dr. Michael Hart HISTORY OF PRESENT ILLNESS: Thank you for allowing me to evaluate Mr. Reymundo Mena. Mr. Mena is an 83-year-old right-handed man with past medical history of hypertension, hyperlipidemia, prostate cancer, stage III renal failure, cognitive impairment, past asbestos exposure, presenting to [facility] with an episode of brief change in mental status/consciousness. Patient does not remember this episode at all. Family is at bedside. states that there were at a picnic last night. At that time, patient hasn't walked back and forth in the car the picnic area about 3 times, and on his way to the car, patient started complaining of neck pain and back pain and needed to sit down. Patient soon after stated that he was feeling nauseated and needed to go to the bathroom. helped the patient sitting on the toilet. After patient went, there want to leave, but patient wanted to use the restroom again. Patient was helped to the toilet, left the room, and then the started hearing some thrashing noise. found the patient moving around his arm with his eyes open, and patient was not really able to respond to the . feels t hat this episode lasted for maybe 30 seconds definitely less than a minute. Patient soon after was able to respond to provide an answer questions. states that he did not complain of any dizziness or lightheadedness, chest pain, soreness of breath, weakness, numbness or tingling. Denies recent sickness, fever. PAST MEDICAL HISTORY: Hypertension, hyperlipidemia, prostate cancer, stage III renal failure, dementia, past asbestos exposure PAST SURGICAL HISTORY: Left and right hip replacements in 2015 and doesn't 16, appendectomy, hernia repair, vascular stenting of the lower extremities, cataract surgery HOME MEDICATIONS: Atorvastatin, Plavix, donepezil, lisinopril ALLERGIES: No known ALLERGIES SOCIAL HISTORY: Former smoker FAMILY HISTORY: Family history of seizures. REVIEW OF SYSTEMS: The 14 systems are reviewed and no additional points are identified compared to the review of systems documented history and physical PHYSICAL EXAMINATION: VITAL SIGNS: Temperature 98.6 pulse rate 63 respiratory rate 16 blood pressure 137/81 O2 saturation 99% on room air GEN.: NAD, pleasant and cooperative HEENT: NCAT, sclera without icterus NECK: Supple SKIN AND EXTREMITIES: Warm to touch, no edema NEURO: MENTAL STATUS: Patient alert and oriented to self, place, time. Able to name the current president. Speech fluent, able to name and repeat, following all commands readily. No right and left disorientation, neglect. Unable to spell world backwards. Able to do serial sevens very well CRANIAL NERVES II THROUGH XII: II: Pupils are equal and reactive to light symmetrically. Visual davis are intact. III, IV, : No ptosis. Extraocular movements full. No nystagmus. V: Facial sensation intact from V1-3. VII. No clear facial asymmetry. VIII: Hearing intact to finger rub bilaterally. IX, X: Symmetric palate elevation. XII: Shoulder shrug intact. XII: Tongue midline wi thout fasciculation or atrophy. MOTOR: Normal bulk/tone. No pronator drift or tremor. Strength is 5/5 throughout all 4 extremities. SENSORY: Intact to light touch, temperature, pinprick in all 4 extremities. Romberg is negative. REFLEXES: 2+ throughout. Toes are downgoing. No clonus. Yuan's is absent COORDINATION: Finger to nose and heel to patel intact. No more dysmetria. Rapid alternating movements with good speed and accuracy. GAIT: Narrow-based and stable. Able to toe/heel/tandem walk DIAGNOSTIC TESTING: LABORATORY: WBC 5.9 hemoglobin 11.4 platelets 185 PT 10.0 INR 0.9 sodium 140 potassium 4.8 chloride 111 bicarb 17 BUN 48 creatinine 2.18 glucose 129 AST 26 ALT 21 alk phos 65 troponin 0.042-> 0.054 urinalysis negative IMAGING: CT head without contrast 11/24/2018: No acute intracranial process. ASSESSMENT: Mr. Mena is an 83-year-old right-handed man with past medical history of hypertension, hyperlipidemia, prostate cancer, stage III renal failure, dementia, past asbestos exposure, presenting to [facility] with an episode of brief change in mental status/consciousness. From history, the event be a vasovagal episode this patient was on the toilet having a bowel movement. However, patient never lost consciousness, and he had abnormal movements of his arms along with opened eyes and nonresponsiveness. CT head with no acute process. RECOMMENDATIONS: 1. Routine EEG 2. Patient has his own neurologist, Dr. Jenkins. 3. Discussed ED precautions and seizure precautions with patient and . 4. Okay to discharge from neuro perspective if EEG is unremarkable. Past Medical History Past Medical History: Cancer, Dementia, Hyperlipidemia, Hypertension, Memory Impairment, Osteoarthritis (OA), Prostate Disorder, Vascular Disorder Additional Past Medical History / Comment(s): hx prostates and skin cancer, PAST ASBETOES EXPOSURE History of Any Multi-Drug Resistant Organisms: None Reported Past Surgical History: Appendectomy, Joint Replacement Additional Past Surgical History / Comment(s): 02/12/15 Total L hip arthroplasty. 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 PT IS INDEPENDANT, NO OUTSIDES SERVICES. Smoking Status: Former smoker Past Alcohol Use History: Occasional Additional Past Alcohol Use History / Comment(s): QUIT SMOKING 1958,STARTED SMOKING 1950,DRINKS 1 BEER PER DAY Past Drug Use History: None Reported - Past Family History Brother(s) Family Medical History: Deep Vein Thrombosis (DVT) Mother Family Medical History: No Reported History Father Additional Family Medical History / Comment(s): AT AGE 50 Medications and Allergies Home Medications Medication Instructions Recorded Confirmed Type Atorvastatin [Lipitor] 80 mg PO HS 01/31/15 11/24/18 History Clopidogrel Bisulfate [Clopidogrel] 75 mg PO DAILY 01/31/15 11/24/18 History Donepezil HCl [Aricept] 10 mg PO HS 09/17/15 11/24/18 History Lisinopril [Zestril] 20 mg PO DAILY 11/24/18 11/24/18 History Allergies Allergy/AdvReac Type Severity Reaction Status Date / Time No Known Allergies Allergy Verified 11/24/18 21:50 Physical Examination - Vital Signs Vital Signs: Vital Signs Temp Pulse Pulse Resp BP BP Pulse Ox 11/25/18 03:01 98.6 F 63 16 137/81 99 11/25/18 01:02 98 F 61 16 129/57 98 11/24/18 23:30 80 18 128/50 96 11/24/18 22:30 61 18 123/47 97 11/24/18 21:51 60 18 108/90 98 11/24/18 21:04 97.0 F L 69 18 138/70 100 Intake and Output 11/24/18 11/25/18 11/25/18 22:59 06:59 14:59 Intake Total 0 Balance 0 Intake: Oral 0 Other: Weight 68.039 kg 66.6 kg Results - Laboratory Findings CBC and BMP: 11/24/18 21:30 11/24/18 21:30 Abnormal Lab Findings: Abnormal Labs 11/24/18 11/24/18 11/24/18 21:30 21:30 21:30 RBC 3.59 L Hgb 11.4 L Hct 34.5 L Lymphocytes # 0.7 L APTT 18.6 L Chloride 111 H Carbon Dioxide 17 L BUN 48 H Creatinine 2.18 H Glucose 129 H Troponin I Total Protein 6.2 L Urine Protein 11/24/18 11/24/18 11/25/18 21:30 23:15 04:11 RBC Hgb Hct Lymphocytes # APTT Chloride Carbon Dioxide BUN Creatinine Glucose Troponin I 0.042 H* 0.054 H* Total Protein Urine Protein Trace H
--- NOTE | 2018-11-25 14:08 | US ---
EXAMINATION TYPE: US carotid duplex BILAT DATE OF EXAM: 11/25/2018 COMPARISON: NONE CLINICAL HISTORY: syncope. EXAM MEASUREMENTS: RIGHT: Peak Systolic Velocity (PSV) cm/sec ----- Right CCA: 93.5 ----- Right ICA: 234.3 ----- Right ECA: 172.0 ICA/CCA ratio: 2.5 RIGHT: End Diastole cm/sec ----- Right CCA: 15.5 ----- Right ICA: 26.0 ----- Right ECA: 9.9 LEFT: Peak Systolic Velocity (PSV) cm/sec ----- Left CCA: 78.4 ----- Left ICA: 91.4 ----- Left ECA: 97.7 ICA/CCA ratio: 1.2 LEFT: End Diastole cm/sec ----- Left CCA: 8.5 ----- Left ICA: 16.3 ----- Left ECA: 0.0 VERTEBRALS (direction of flow): Right Vertebral: Antegrade Left Vertebral: Antegrade Rhythm: Normal Severe atherosclerotic changes with velocity increase on the right. No significant velocity increase on left. IMPRESSION: 1. 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 2. Although there appears to be at least moderate atherosclerosis of the left carotid bulb no hemodyn amically significant stenosis on the left is seen by consensus criteria. Criteria for Assigning % of Stenosis / Diameter reduction (Estimation based on the indirect measurements of the internal carotid artery velocities (ICA PSV). 1. Normal (no stenosis)=ICA PSV < 125 cm/s: ratio < 2.0: ICA EDV<40 cm/s. 2. Less than 50% stenosis=ICA PSV < 125 cm/s: ratio < 2.0: ICA EDV<40 cm/s. 3. 50 to 69% stenosis=ICA PSV of 125 to 230 cm/s: ration 2.0 ? 4.0: ICA EDV 40-100 cm/s. 4. Greater than 70% stenosis to near occlusion= ICA PSV > 230 cm/s: ratio > 4.0: ICA EDV > 100 cm/s. 5. Near occlusion= ICA PSV velocities may be low or undetectable: variable ratio and ICA EDV. 6. Total occlusion=unable to detect flow.
[2018-11-25] MEDS ORDERED: DONEPEZIL 10 MG TAB PO SCH (21:00)
[2018-11-25] MEDS ORDERED: ATORVASTATIN 80 MG TAB PO SCH (21:00)
--- NOTE | 2018-11-25 23:10 | EEG ---
ELECTROENCEPHALOGRAM REPORT DATE OF PROCEDURE: 11/25/2018. ELECTROENCEPHALOGRAM (EEG) REPORT: TECHNIQUE: A routine 18-channel EEG was performed with video using the 10/20 international electrode placement system. HISTORY: Near-syncope. Patient was sitting on the commode when his upper and lower extremities started shaking. CURRENT MEDICATIONS: 1. Lisinopril. 2. Aricept. 3. Plavix. 4. Atorvastatin. 5. Aspirin. STUDY DURATION: 25 minutes. FINDINGS: BACKGROUND: The background activity consisted of 8-9 Hz rhythmic waveforms symmetric through both posterior quadrants. ACTIVATION: Hyperventilation: Not performed. Photic stimulation: Mild symmetric driving seen. Sleep: Drowsy in stage I. ABNORMALITIES: None. Please note that one channel of this EEG was dedicated to EKG. It demonstrated a sinus rhythm. IMPRESSION: Normal EEG. No epileptiform activity was present. No seizures were recorded. MMODL / IJN: [id number] /
[2018-11-26] MEDS: SODIUM CHLORIDE 0.9% 1,000 ML IV SCH (02:22)
[2018-11-26 07:04] LABS: Basophils % (A) 1 %; Eosinophils # (A) 0.4 k/uL (0-0.7); Eosinophils % (A) 11 %; HCT 33.2 % (39.0-53.0); HGB 10.3 gm/dL (13.0-17.5); Lymphocytes # (A) 0.8 k/uL (1.0-4.8); Lymphocytes % (A) 21 %; MCH 30.1 pg (25.0-35.0); MCHC 31.1 g/dL (31.0-37.0); MCV 96.8 fL (80.0-100.0); Mean Platelet Volume 7.1; Monocytes # (A) 0.3 k/uL (0-1.0); Monocytes % (A) 7 %; Neutrophils # (A) 2.2 k/uL (1.3-7.7); Neutrophils % (A) 57 %; Platelet Count 187 k/uL (150-450); RBC 3.43 m/uL (4.30-5.90); WBC 3.9 k/uL (3.8-10.6)
[2018-11-26 07:05] LABS: Potassium 4.5 mmol/L (3.5-5.1)
--- NOTE | 2018-11-26 08:07 | P.DS ---
Providers Date of admission: 11/25/18 00:05 The patient is an 83-year-old gentleman who was brought in by EMS after passing out while on the commode at home. Please refer to history and physical from yesterday. The patient was seen in the emergency room and placed on a monitor floor. Consultation with cardiology and neurology were obtained. Please refer to their respective notes. Laboratory values revealed a white count of 5.9 and a hemoglobin 11.4 and a platelet count of 185. INR was 0.9. Sodium 140 with potassium 4.8. BUN of 48 with creatinine 2.18 giving him a GFR of 27. Blood sugar was 129. Troponin was elevated 0.042 and did increase on second determination to 0.054. EKG, chest x-ray and CAT scan of the brain did not show any acute abnormal processes. Patient did have a EEG performed which was felt to be normal without any deformity activity. A carotid Doppler did show approximately 50-69% right internal carotid artery stenoses. But overall no hemodynamically significant stenosis was seen on the left. Echocardiogram read demonstrated sinus rhythm. Ejection fraction was good at 60-65%. Left atrium was normal in size. No pericardial effusion noted. Impression 1. Vasovagal syncope with loss of consciousness. 2. Postural hypotension 3. Hypertension 4. Hyperlipidemia 5. History of prostate cancer 6. Chronic kidney disease stage 3-4. 7. Probably osteoarthritis with previous hip replacement therapies. 8. Mild cognitive impairment. Home medications Lisinopril 20 mg daily Aricept 10 mg at at bedtime Clopidogrel. 75 mg daily Atorvastatin 80 mg at at bedtime Patient follow-up with cardiology and myself over the next several days. Call if any concerns or problems. Transient emergency room if interval significant symptoms develop. This was discussed with staff and family and patient this morning at bedside. Attending physician: Michael Hart Consults: 11/25/18 00:05 Consult Physician Routine Consulting Provider: Paxton Grant Consult Reason/Comments: Syncope. Borderline troponin. Do you want consulting provider notified?: Yes 11/25/18 07:27 Consult Physician Urgent Consulting Provider: Bertha Madera Consult Reason/Comments: shaking episode on commode Do you want consulting provider notified?: Yes Primary care physician: Michael Hart Patient Condition at Discharge: Fair Plan - Discharge Summary Discharge Rx Participant: No New Discharge Prescriptions: No Action Atorvastatin [Lipitor] 80 mg PO HS Clopidogrel Bisulfate [Clopidogrel] 75 mg PO DAILY Donepezil HCl [Aricept] 10 mg PO HS Lisinopril [Zestril] 20 mg PO DAILY Discharge Medication List Atorvastatin [Lipitor] 80 mg PO HS 01/31/15 [History] Clopidogrel Bisulfate [Clopidogrel] 75 mg PO DAILY 01/31/15 [History] Donepezil HCl [Aricept] 10 mg PO HS 09/17/15 [History] Lisinopril [Zestril] 20 mg PO DAILY 11/24/18 [History] Follow up Appointment(s)/Referral(s): Michael Hart MD [Primary Care Provider] - 1-2 days
[2018-11-26] MEDS ORDERED: ASPIRIN 325 MG TAB PO SCH (09:00)
[2018-11-26] MEDS: CLOPIDOGREL 75 MG TAB PO SCH (09:26)
[2018-11-26] MEDS: LISINOPRIL 20 MG TAB PO SCH (09:26)
--- NOTE | 2018-11-26 09:58 | P.PN ---
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 Acosta several years ago, hypertension, dyslipidemia, and history of underlying dementia, was brought by his family to the emergency room after a brief episode of loss of consciousness yesterday. The patient was at the [facility] with his neighbors when he was not feeling well. He went home with his and he went to the bathroom because he felt that he is having diarrhea. Apparently in the bathroom, the patient did have a brief episode of loss of consciousness. No symptoms of dizziness or lightheadedness, chest pain or chest discomfort, shortness of breath, or any feeling of heart racing or fluttering. The patient never had similar episodes in the past. Because of that he was brought by his family to the emergency room. No history of coronary artery disease, but he does have peripheral arterial disease. Beside that he does have hypertension and dyslipidemia. The patient's stated that the patient was not eating and drinking well lately. He underwent a diagnostic workup in the emergency room. The creatinine came in to be elevated and around 2.1 which is about his baseline. The troponin was checked and came to be slightly abnormal. The EKG showed sinus rhythm without any significant ST or T-wave abnormalities noted. Currently the patient is on dual antiplatelet therapy with aspirin as well as Plavix and he is also on statin. The patient's stated that the patient does have underlying dementia and he dementia lately has been more than mild. On physical examination, he does have bilateral carotid bruit which seems to be worse on the right side than the left side. On follow-up with the patient today, he is feeling better overall. He denies any symptoms of chest pain or chest discomfort. From the cardiovascular standpoint of view, the patient can be discharged home. Objective - Vital Signs Vital signs: Vital Signs Temp 97.5 F L 11/26/18 04:00 Pulse 59 L 11/26/18 04:00 Resp 16 11/26/18 04:00 BP 136/63 11/26/18 04:00 Pulse Ox 97 11/26/18 04:00 Intake & Output 11/25/18 11/26/18 11/26/18 18:59 06:59 18:59 Intake Total 410 240 Balance 410 240 Weight 66.179 kg Intake: Oral 410 240 Other: Voiding Method Toilet # Voids 2 1 - Constitutional General appearance: Present: no acute distress - Respiratory Respiratory: bilateral: CTA - Cardiovascular Rhythm: regular Heart sounds: normal: S1, S2 - Labs CBC & Chem 7: 11/26/18 06:34 11/26/18 06:34 Labs: Abnormal Lab Results - Last 24 Hours (Table) 11/25/18 11/26/18 11/26/18 Range/Units 09:32 06:34 06:34 RBC 3.43 L (4.30-5.90) m/uL Hgb 10.3 L (13.0-17.5) gm/dL Hct 33.2 L (39.0-53.0) % Lymphocytes # 0.8 L (1.0-4.8) k/uL Chloride 111 H (98-107) mmol/L Carbon Dioxide 20 L (22-30) mmol/L BUN 36 H (9-20) mg/dL Creatinine 1.82 H (0.66-1.25) mg/dL Glucose 103 H (74-99) mg/dL Troponin I 0.061 H* (0.000-0.034) ng/mL Assessment and Plan Assessment: Assessment #1 an episode of loss of consciousness, brief, likely related to vasovagal versus orthostatic hypertension #2 acute on chronic renal failure #3 probably dehydration #4 peripheral arterial disease #5 hypertension #6 dyslipidemia Plan #1 continue the current medical regimen #2 from the cardiovascular standpoint of view, the patient can be discharged home
[2018-11-26 10:29] VITALS: BP 135/69; PULSE 62; RESP 18; TEMP 97.7
== END 2018-11-26 09:36 | disposition home or self-care (01) | DRG 312 ==
LOC: EC 20:49 → 3SCARD 11-25 00:05 → UNDOADMIN 11-25 01:13
PROVIDERS: ADMIT Internal Medicine; ATTEND Internal Medicine
DX: I95.1 Orthostatic hypotension (principal); N17.9 Acute kidney failure, unspecified; N18.4 Chronic kidney disease, stage 4 (severe); M15.9 Polyosteoarthritis, unspecified; Z77.090 Contact with and (suspected) exposure to asbestos; E78.5 Hyperlipidemia, unspecified; E86.0 Dehydration; F03.90 Unspecified dementia, unspecified severity, without behavioral disturbance, psychotic disturbance, mood disturbance, and anxiety; I12.9 Hypertensive chronic kidney disease with stage 1 through stage 4 chronic kidney disease, or unspecified chronic kidney disease; I45.10 Unspecified right bundle-branch block; I73.9 Peripheral vascular disease, unspecified; Z79.02 Long term (current) use of antithrombotics/antiplatelets; Z79.899 Other long term (current) drug therapy; Z82.0 Family history of epilepsy and other diseases of the nervous system; Z82.3 Family history of stroke; Z85.46 Personal history of malignant neoplasm of prostate; Z85.828 Personal history of other malignant neoplasm of skin; Z87.891 Personal history of nicotine dependence; Z96.643 Presence of artificial hip joint, bilateral; Z98.42 Cataract extraction status, left eye; Z98.41 Cataract extraction status, right eye; Z95.828 Presence of other vascular implants and grafts; F02.80 Dementia in other diseases classified elsewhere, unspecified severity, without behavioral disturbance, psychotic disturbance, mood disturbance, and anxiety; Z83.2 Family history of diseases of the blood and blood-forming organs and certain disorders involving the immune mechanism
CPT/HCPCS: 36415; 70450; 71045; 80048; 80053; 80061; 81003; 84484; 85025; 85610; 85730; 93005; 93306; 93880; 95816; 96360; 99285

== ENCOUNTER 2019-02-23 08:49 | Day surgery (SDC) | payer MEDICARE ==
[~2019-02-23 08:49] MED LIST: ALPRAZolam 0.25 MG TAB PO PRN; ASPIRIN 325 MG TAB PO ONE; SODIUM CHLORIDE 0.9% 1,000 ML in EMPTY BAG 1 BAG IV ONE
[2019-02-23 10:12] LABS: Basophils # (A) 0.1 k/uL (0-0.2); Basophils % (A) 1 %; Eosinophils # (A) 0.4 k/uL (0-0.7); Eosinophils % (A) 8 %; HCT 36.8 % (39.0-53.0); HGB 12.2 gm/dL (13.0-17.5); Lymphocytes % (A) 20 %; MCH 32.3 pg (25.0-35.0); MCHC 33.2 g/dL (31.0-37.0); MCV 97.4 fL (80.0-100.0); Mean Platelet Volume 7.1; Monocytes # (A) 0.3 k/uL (0-1.0); Monocytes % (A) 6 %; Neutrophils # (A) 3.3 k/uL (1.3-7.7); Neutrophils % (A) 63 %; Platelet Count 279 k/uL (150-450); RBC 3.78 m/uL (4.30-5.90); RDW 12.2 % (11.5-15.5); WBC 5.3 k/uL (3.8-10.6)
[2019-02-23] MEDS ORDERED: SODIUM CHLORIDE 0.9% 1,000 ML IV ONE (10:17)
[2019-02-23 10:21] LABS: Calcium 9.7 mg/dL (8.4-10.2); Potassium 4.4 mmol/L (3.5-5.1)
[2019-02-23] MEDS ORDERED: MIDAZOLAM 2 MG/2 ML VIAL IVP ONE (13:01)
[2019-02-23] MEDS ORDERED: LIDOCAINE 1% INJ 10MG/ML (20 ML MDV) SQ ONE (13:07)
[2019-02-23] MEDS ORDERED: hydrALAZINE HCL 20 MG/ML 1 ML VIAL IVP ONE (13:29)
--- NOTE | 2019-02-23 13:56 | AN ---
ANGIOGRAPHY REPORT ABDOMINAL AORTOGRAM AND BILATERAL LOWER EXTREMITIES RUNOFF: DATE OF SERVICE: 02/23/2019 PERFORMING PHYSICIAN: Paxton Grant MD. PROCEDURE PERFORMED: 1. An abdominal aortogram. 2. Bilateral lower extremities runoff. INDICATION: This is a pleasant 84-year-old gentleman with history of hypertension and dyslipidemia and chronic kidney disease who was experiencing bilateral lower extremities intermittent claudication and underwent an anterior duplex study which revealed bilateral aortoiliac disease and bilateral femoral-popliteal disease. Because of the advanced chronic kidney disease, we decided to go with aortogram with runoff using CO2. APPROACH: Right common femoral artery. COMPLICATION: None. LEVEL OF SEDATION: Moderate sedation length of 20 minutes. PROCEDURE DESCRIPTION: After obtaining an informed consent, the patient was brought to the cardiac label printer. The right common femoral artery was cannulated using micropuncture technique, the micropuncture wire passed easily, then I placed a 5-Indonesian sheath in the right groin. After that, I did an abdominal aortogram and bilateral lower extremities runoff using 5- Indonesian pigtail catheter which was initially placed using at the level of the renal arteries and it was pulled into above the bifurcation of the aorta into right and left common iliac arteries. The whole procedure was performed using CO2 and without using any contrast. SELECTIVE PERIPHERAL ANGIOGRAM: 1. The aorta appeared to be calcified with mild disease only. 2. Common iliac arteries: The right common iliac artery appeared to have a tight lesion in the range of 99.9% and the left common iliac artery appeared to have mild disease only. 3. Internal iliac arteries were not well opacified. 4. External iliac arteries: Both appeared to be patent. 5. Common femoral arteries: Both common femoral arteries are extremely calcified. 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 6. Profunda: Both profunda are patent. 7. SFA: The right SFA is occluded in the proximal portion and reconstitutes in the mid portion. The left SFA has multiple tight lesions. 8. Popliteals: Both popliteals appeared to have moderate disease. 9. Below the knee: The arteries below the knee were not well opacified. CONCLUSION: 1. 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 2. Severe bilateral SFA disease. Occluded right SFA and critical disease involving the left SFA. POSTPROCEDURE MANAGEMENT: 1. ACCOUNTING OFFICER of the right iliac. 2. Assess after that need to have a ACCOUNTING OFFICER of bilateral SFA. MMODL / IJN: [id number] /
[2019-02-23 14:31] VITALS: RESP 18; TEMP 97.9
[2019-02-23 14:49] VITALS: BMI 21.9
[2019-02-23 17:08] VITALS: BP 140/60; PULSE 67
--- NOTE | 2019-02-25 12:40 | IR ---
EXAMINATION TYPE: IR angio abdominal w runoff DATE OF EXAM: 02/23/2019 COMPARISON: NONE HISTORY: Fluoroscopy time. Fluoroscopy was provided to the referring clinician.
== END 2019-02-23 19:39 | disposition home or self-care (01) ==
LOC: CATHCVL 08:49 → 1SOBS 13:25 → CATHCVL 19:39
PROVIDERS: ATTEND Internal Medicine Interventional Cardiology
DX: I70.213 Atherosclerosis of native arteries of extremities with intermittent claudication, bilateral legs (principal); I70.0 Atherosclerosis of aorta; I77.89 Other specified disorders of arteries and arterioles; I12.9 Hypertensive chronic kidney disease with stage 1 through stage 4 chronic kidney disease, or unspecified chronic kidney disease; N18.9 Chronic kidney disease, unspecified; E78.5 Hyperlipidemia, unspecified; I65.23 Occlusion and stenosis of bilateral carotid arteries; R79.89 Other specified abnormal findings of blood chemistry; I25.10 Atherosclerotic heart disease of native coronary artery without angina pectoris; F03.90 Unspecified dementia, unspecified severity, without behavioral disturbance, psychotic disturbance, mood disturbance, and anxiety; F17.210 Nicotine dependence, cigarettes, uncomplicated; Z87.448 Personal history of other diseases of urinary system; Z79.02 Long term (current) use of antithrombotics/antiplatelets; Z79.899 Other long term (current) drug therapy; Z82.49 Family history of ischemic heart disease and other diseases of the circulatory system
CPT/HCPCS: 36200; 75625; 75716; 80048; 85025; C1769 ×5; C1894; J2250; J0360; J2001

== ENCOUNTER → 2019-05-04 | Outpatient (CLI) | payer MEDICARE ==
[2019-05-04 13:01] LABS: Potassium 4.6 mmol/L (3.5-5.1)
[2019-05-04 14:14] LABS: HCT 39.6 % (39.0-53.0); HGB 12.3 gm/dL (13.0-17.5); MCHC 31.1 g/dL (31.0-37.0); MCV 99.7 fL (80.0-100.0); Platelet Count 217 k/uL (150-450); RBC 3.97 m/uL (4.30-5.90); RDW 13.1 % (11.5-15.5); WBC 6.7 k/uL (3.8-10.6)
== END | disposition home or self-care (01) ==
LOC: LABPAT 12:13
PROVIDERS: ATTEND Internal Medicine Interventional Cardiology
DX: Z01.812 Encounter for preprocedural laboratory examination (principal); I70.213 Atherosclerosis of native arteries of extremities with intermittent claudication, bilateral legs
CPT/HCPCS: 36415; 80051; 82565; 84520; 85027

== ENCOUNTER 2019-05-13 06:59 | Day surgery (SDC) | payer MEDICARE ==
[2019-05-11 15:58] VITALS: BMI 21.9
[~2019-05-13 06:59] MED LIST changes: +ALPRAZolam 0.5 MG TAB PO PRN; -ASPIRIN 325 MG TAB PO ONE; +ASPIRIN 325 MG TAB PO STA
[2019-05-13] MEDS ORDERED: SODIUM CHLORIDE 0.9% 1,000 ML IV ONE (07:34)
[2019-05-13] MEDS ORDERED: MIDAZOLAM 2 MG/2 ML VIAL IV ONE (08:05)
[2019-05-13] MEDS ORDERED: LIDOCAINE 1% INJ 10MG/ML (20 ML MDV) SQ ONE (08:07)
[2019-05-13] MEDS ORDERED: HEPARIN SODIUM 1,000 UN/ML (10ML VL) IV ONE (08:20)
[2019-05-13 08:46] LABS: Calcium 9.5 mg/dL (8.4-10.2); Potassium 4.6 mmol/L (3.5-5.1)
[2019-05-13] MEDS ORDERED: IOPAMIDOL-250 100ML BTL INTRAARTER ONE (08:46)
[2019-05-13] MEDS ORDERED: SODIUM CHLORIDE 0.9% 1,000 ML in EMPTY BAG 1 BAG IV SCH (09:00)
--- NOTE | 2019-05-13 09:33 | IR ---
Fluoroscopy HISTORY: Pain in right leg 6.9 minutes fluoroscopy time supplied to the referring clinician. 257 intraoperative C-arm images do cument the procedure. See dictated report from cardiology.
--- NOTE | 2019-05-13 09:45 | LTR ---
May 13, 2019 Re: Reymundo Mena Dear Dr. Ivey: Mr. Reymundo Mena underwent successful percutaneous intervention of the right common and right external iliac artery with excellent angiographic results and without any complication. I want to thank you for allowing me to participate in his care and please do not hesitate to call if you have any question or concern. Sincerely, MD EDWIN JiangL / IJN: [id number] /
--- NOTE | 2019-05-13 09:54 | AN ---
ANGIOGRAPHY REPORT DATE OF SERVICE: May 13, 2019. PERFORMING PHYSICIAN: Paxton Grant MD. PROCEDURE PERFORMED: 1. Selective right common and right external iliac artery angiogram as well as the right common femoral artery angiogram. 2. Intravascular ultrasound, IVUS, of the right common and right external iliac artery. 3. Successful stenting of the right common and right external iliac artery using 8 x 80 mm Omnilink balloon expandable stent with an excellent angiographic result and reduction of stenosis from 99% to 0%. INDICATION: This is an an 84-year-old gentleman who is in good physical shape with known history of chronic kidney disease who was experiencing bilateral lower extremities intermittent claudication and underwent an angiogram using CO2 and that revealed critical disease involving the right common iliac artery and right external iliac artery. Because of that, he was brought today to undergo an intervention. Also he was found to have occluded bilateral SFA. APPROACH: Right common femoral artery. COMPLICATION: None. LEVEL OF SEDATION: Moderate with sedation length of 44 minutes. PROCEDURE DESCRIPTION: Please refer to the diagnostic procedure was performed few weeks ago. After obtaining an informed consent, the patient was brought to the cardiac laboratory coordinator. The right common femoral artery was cannulated using micropuncture technique under ultrasound guidance, the micropuncture wire passed easily then I placed a 6-Greenlandic sheath 23 cm Brite tip at the right common femoral artery. Access was performed using ultrasound guidance. After that, anticoagulation was initiated using heparin. The patient was given 5000 units of heparin IV. ACT was performed as well. After that, I did do selective right common and right external iliac artery angiogram. After that I did wire the lesion using wire wire. Subsequently I did intravascular ultrasound of the right common and right external iliac arteries which revealed heavily calcified lesion with critical disease involving both common and external iliac arteries. Subsequently, I did balloon angioplasty using 6 x 60 mm balloon. After that I did deploy 8 x 80 mm balloon expandable stent where the stent was positioned under fluoroscopy guidance and deployed under its nominal pressure. The following angiogram showed excellent angiographic results and the procedure was completed without any complication. After that I did exchange my 23 cm Brite tip sheath into 11 cm regular sheath before I did selective right common femoral artery angiogram. The procedure was completed without any complication. POSTPROCEDURE MANAGEMENT: 1. Dual antiplatelet therapy. 2. Risk factor modifications. 3. Statin. 4. Follow up with the patient. MMODL / IJN: [id number] /
[2019-05-13] MEDS: hydrALAZINE HCL 20 MG/ML 1 ML VIAL IVP PRN (12:53)
[2019-05-13] MEDS ORDERED: HYDROmorphone 1 MG/ML 1 ML SYRINGE IVP STA (14:19)
[2019-05-13] MEDS ORDERED: HYDROmorphone 0.5 MG/0.5 ML SYRINGE IVP PRN (14:21)
[2019-05-13] MEDS ORDERED: HYDROmorphone 1 MG/ML 1 ML SYRINGE IVP PRN (14:24)
[2019-05-13 19:56] VITALS: RESP 16
[2019-05-13] MEDS ORDERED: ATORVASTATIN 80 MG TAB PO SCH (21:00)
[2019-05-13] MEDS ORDERED: DONEPEZIL 10 MG TAB PO SCH (21:00)
[2019-05-14] MEDS: hydrALAZINE HCL 20 MG/ML 1 ML VIAL IVP PRN (04:11)
[2019-05-14 07:30] LABS: Basophils % (A) 1 %; Eosinophils # (A) 0.2 k/uL (0-0.7); Eosinophils % (A) 3 %; HCT 37.5 % (39.0-53.0); HGB 11.7 gm/dL (13.0-17.5); Lymphocytes # (A) 0.8 k/uL (1.0-4.8); Lymphocytes % (A) 12 %; MCH 30.7 pg (25.0-35.0); MCHC 31.3 g/dL (31.0-37.0); MCV 97.9 fL (80.0-100.0); Mean Platelet Volume 8.4; Monocytes # (A) 0.5 k/uL (0-1.0); Monocytes % (A) 7 %; Neutrophils # (A) 5.2 k/uL (1.3-7.7); Neutrophils % (A) 76 %; Platelet Count 209 k/uL (150-450); RBC 3.83 m/uL (4.30-5.90); RDW 13.2 % (11.5-15.5); WBC 6.9 k/uL (3.8-10.6)
[2019-05-14 07:49] LABS: Calcium 9.5 mg/dL (8.4-10.2); Potassium 4.8 mmol/L (3.5-5.1)
[2019-05-14 08:11] VITALS: BP 123/56; PULSE 78; TEMP 98.3
[2019-05-14] MEDS ORDERED: LISINOPRIL 20 MG TAB PO SCH (09:00)
[2019-05-14] MEDS ORDERED: CLOPIDOGREL 75 MG TAB PO SCH (09:00)
--- NOTE | 2019-05-14 12:10 | DS ---
DISCHARGE SUMMARY DATE OF ADMISSION: 05/13/2019 DATE OF DISCHARGE: 05/14/2019 BRIEF HISTORY: This is a very pleasant 84-year-old gentleman who underwent yesterday successful stenting of the right iliac artery with excellent angiographic results and without any complication from right groin approach. The patient was seen this morning. The right groin is soft and nontender and without any bruises. He does have good signal in the right foot in terms of Doppler. The patient is going to be discharged home on dual anti-platelet therapy and statin, and I will follow up with the patient next week in the office. MMJESUSL / MICHAELN: [id number] /
== END 2019-05-14 10:25 | disposition home or self-care (01) ==
LOC: CATHCVL 06:59 → 3SCARD 12:49 → CATHCVL 05-14 10:25
PROVIDERS: ATTEND Internal Medicine Interventional Cardiology
DX: I70.213 Atherosclerosis of native arteries of extremities with intermittent claudication, bilateral legs (principal); I65.23 Occlusion and stenosis of bilateral carotid arteries; I10 Essential (primary) hypertension; E78.5 Hyperlipidemia, unspecified; F03.90 Unspecified dementia, unspecified severity, without behavioral disturbance, psychotic disturbance, mood disturbance, and anxiety; Z79.02 Long term (current) use of antithrombotics/antiplatelets; Z79.899 Other long term (current) drug therapy; Z82.49 Family history of ischemic heart disease and other diseases of the circulatory system; Z72.0 Tobacco use
CPT/HCPCS: 37221; 37252; 80048 ×2; 85025; C1769 ×5; C1725; C1876; C1887; C1894; C1753; J2250; J0360 ×2; J2001; J1644; J1170; Q9966

== ENCOUNTER → 2019-09-28 | Outpatient (CLI) | payer MEDICARE ==
--- NOTE | 2019-09-28 16:32 | XR ---
EXAMINATION TYPE: XR chest 2V DATE OF EXAM: 09/28/2019 COMPARISON: Prior chest 11/24/2018 HISTORY: N 18.90, R350 TECHNIQUE: Frontal and lateral views of the chest are obtained. FINDINGS: There is no focal air space opacity, pleural effusion, or pneumothorax seen. The aorta is dense. The cardiac silhouette size is within normal limits. The osseous structures are intact, the re is thoracic spondylosis, facet arthropathy noted degenerative disc change cervical spine.. IMPRESSION: No acute cardiopulmonary process.
--- NOTE | 2019-09-28 18:13 | US ---
EXAMINATION TYPE: US kidneys/renal and bladder DATE OF EXAM: 09/28/2019 COMPARISON: NONE CLINICAL HISTORY: N18.9 CKD R35.0 Urinary frequency. EXAM MEASUREMENTS: Right Kidney: 7.3 x 3.8 x 3.5 cm Left Kidney: 8.0 x 3.7 x 3.6 cm Right Kidney: atrophied kidney, no hydronephrosis or masses seen Left Kidney: atrophied kidney, no hydronephrosis or masses seen Bladder: not fully distended When scanning right kidney adjacent liver is heterogeneously hyperechoic suggesting fatty infiltratio n. There is no evidence for hydronephrosis at this point in time. No nephrolithiasis is seen. No ma sses are identified on images saved. The urinary bladder is not greatly distended and thus suboptim ally evaluated. Bilateral ureteral jets are not seen. IMPRESSION: Diminished size of both kidneys without hydronephrosis identified bilaterally.
== END | disposition home or self-care (01) ==
LOC: RADUSWWP 15:30
PROVIDERS: ATTEND Nurse Practitioner Family
DX: N18.9 Chronic kidney disease, unspecified (principal); R35.0 Frequency of micturition
CPT/HCPCS: 71046; 76770

== ENCOUNTER 2019-10-30 10:44 | Observation (INO) | payer MEDICARE ==
[2019-10-30] MEDS ORDERED: SODIUM CHLORIDE 0.9% 1,000 ML IV STA ×2 (10:49)
--- NOTE | 2019-10-30 10:54 | ED ---
Syncope HPI - General Stated Complaint: syncope Time Seen by Provider: 10/30/19 10:44 Source: patient, EMS, RN notes reviewed Mode of arrival: EMS Limitations: no limitations - History of Present Illness Initial Comments: This is a 84-year-old male who was in jew prior to arrival here he was sitting down and apparently passed out while sitting air he was out for 15-20 seconds apparently. He did have a little shaking at the time which resolved quickly he did arouse quickly. Per paramedics the family is concerned he may be dehydrated. Patient had the feeling is going to pass out but could not describe any symptoms. Upon arrival he was awake and alert. No trauma reported no other modifying factors known at this time. MD Complaint: loss of consciousness - Related Data Home Medications Medication Instructions Recorded Confirmed Atorvastatin [Lipitor] 80 mg PO HS 01/31/15 10/30/19 Clopidogrel Bisulfate [Clopidogrel] 75 mg PO DAILY 01/31/15 10/30/19 Donepezil HCl [Aricept] 10 mg PO HS 09/17/15 10/30/19 Aspirin 325 mg PO HS 10/30/19 10/30/19 Cholecalciferol [Vitamin D3 (25 1,000 unit PO BID 10/30/19 10/30/19 Mcg = 1000 Iu)] Multivitamins, Thera [Multivitamin 1 tab PO HS 10/30/19 10/30/19 (formulary)] Sodium Bicarbonate Tab 650 mg PO DAILY 10/30/19 10/30/19 amLODIPine [Norvasc] 5 mg PO DAILY 10/30/19 10/30/19 Allergies Allergy/AdvReac Type Severity Reaction Status Date / Time No Known Allergies Allergy Verified 10/30/19 11:45 Review of Systems ROS Statement: Those systems with pertinent positive or pertinent negative responses have been documented in the HPI. ROS Other: All systems not noted in ROS Statement are negative. Past Medical History Past Medical History: Cancer, Dementia, Hyperlipidemia, Hypertension, Memory Impairment, Osteoarthritis (OA), Prostate Disorder, Vascular Disorder Additional Past Medical History / Comment(s): Hx prostate and skin cancer; PAST ASBESTOS EXPOSURE. C/O Pain in Rt leg w/ walking. History of Any Multi-Drug Resistant Organisms: None Reported Past Surgical History: Appendectomy, Joint Replacement Additional Past Surgical History / Comment(s): 02/12/15 Total L hip arthroplasty. Exc skin CA face, mass removed from base of spine, vascular surgery lt leg, jabari cataracts, 6-13-16 TOTAL RT HIP, hemorrhoidectomy Past Anesthesia/Blood Transfusion Reactions: No Reported Reaction Past Psychological History: No Psychological Hx Reported Past Alcohol Use History: Occasional Past Drug Use History: None Reported - Past Family History Brother(s) Family Medical History: Deep Vein Thrombosis (DVT) Mother Family Medical History: No Reported History Father Additional Family Medical History / Comment(s): AT AGE 50 General Exam - General Exam Comments Initial Comments: This is a well-developed asthenic appearing male was awake alert oriented 3 Limitations: no limitations General appearance: alert, in no apparent distress Head exam: Present: atraumatic, normocephalic, normal inspection Eye exam: Present: normal appearance, PERRL, EOMI. Absent: scleral icterus, conjunctival injection, periorbital swelling ENT exam: Present: mucous membranes dry Neck exam: Present: normal inspection, full ROM, other (No stridor JVD or bruits). Absent: tenderness, meningismus, lymphadenopathy Respiratory exam: Present: normal lung sounds bilaterally. Absent: respiratory distress, wheezes, rales, rhonchi, stridor Cardiovascular Exam: Present: regular rate, normal rhythm, normal heart sounds. Absent: systolic murmur, diastolic murmur, rubs, gallop, clicks GI/Abdominal exam: Present: soft, normal bowel sounds. Absent: distended, tenderness, guarding, rebound, rigid Extremities exam: Present: normal inspection, full ROM, normal capillary refill. Absent: tenderness, pedal edema, joint swelling, calf tenderness Back exam: Present: normal inspection Neurological exam: Present: alert, oriented X3, CN II-XII intact Psychiatric exam: Present: normal affect, normal mood Skin exam: Present: warm, intact, normal color, diaphoretic. 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 This was within the last 2 weeks Medical Decision Making - Medical Decision Making I did reevaluate patient several occasions no further symptoms at this time. Blood cell. He does have elevation of his cardiac enzymes. Discussed the findings with the patient and family as well as with Dr. Hall. Patient will be admitted with neurological consultation in a.m. - Lab Data Result diagrams: 10/30/19 10:56 10/30/19 10:56 Lab Results 10/30/19 10/30/19 10/30/19 Range/Units 10:56 10:56 10:56 WBC 8.2 (3.8-10.6) k/uL RBC 3.58 L (4.30-5.90) m/uL Hgb 11.7 L (13.0-17.5) gm/dL Hct 35.2 L (39.0-53.0) % MCV 98.4 (80.0-100.0) fL MCH 32.6 (25.0-35.0) pg MCHC 33.1 (31.0-37.0) g/dL RDW 13.3 (11.5-15.5) % Plt Count 253 (150-450) k/uL Neutrophils % 74 % Lymphocytes % 11 % Monocytes % 6 % Eosinophils % 7 % Basophils % 1 % Neutrophils # 6.0 (1.3-7.7) k/uL Lymphocytes # 0.9 L (1.0-4.8) k/uL Monocytes # 0.5 (0-1.0) k/uL Eosinophils # 0.6 (0-0.7) k/uL Basophils # 0.1 (0-0.2) k/uL PT 9.6 (9.0-12.0) sec INR 0.9 (<1.2) APTT 20.3 L (22.0-30.0) sec Sodium 137 (137-145) mmol/L Potassium 4.7 (3.5-5.1) mmol/L Chloride 106 (98-107) mmol/L Carbon Dioxide 23 (22-30) mmol/L Anion Gap 8 mmol/L BUN 45 H (9-20) mg/dL Creatinine 1.80 H (0.66-1.25) mg/dL Est GFR (CKD-EPI)AfAm 39 (>60 ml/min/1.73 sqM) Est GFR (CKD-EPI)NonAf 33 (>60 ml/min/1.73 sqM) Glucose 124 H (74-99) mg/dL POC Glucose (mg/dL) (75-99) mg/dL POC Glu Site Coordinator ID Calcium 9.4 (8.4-10.2) mg/dL Magnesium 1.9 (1.6-2.3) mg/dL Total Bilirubin 0.4 (0.2-1.3) mg/dL AST 32 (17-59) U/L ALT 16 (4-49) U/L Alkaline Phosphatase 78 (38-126) U/L Creatine Kinase 58 (55-170) U/L Troponin I (0.000-0.034) ng/mL Total Protein 6.6 (6.3-8.2) g/dL Albumin 4.2 (3.5-5.0) g/dL 10/30/19 10/30/19 Range/Units 10:56 10:58 WBC (3.8-10.6) k/uL RBC (4.30-5.90) m/uL Hgb (13.0-17.5) gm/dL Hct (39.0-53.0) % MCV (80.0-100.0) fL MCH (25.0-35.0) pg MCHC (31.0-37.0) g/dL RDW (11.5-15.5) % Plt Count (150-450) k/uL Neutrophils % % Lymphocytes % % Monocytes % % Eosinophils % % Basophils % % Neutrophils # (1.3-7.7) k/uL Lymphocytes # (1.0-4.8) k/uL Monocytes # (0-1.0) k/uL Eosinophils # (0-0.7) k/uL Basophils # (0-0.2) k/uL PT (9.0-12.0) sec INR (<1.2) APTT (22.0-30.0) sec Sodium (137-145) mmol/L Potassium (3.5-5.1) mmol/L Chloride (98-107) mmol/L Carbon Dioxide (22-30) mmol/L Anion Gap mmol/L BUN (9-20) mg/dL Creatinine (0.66-1.25) mg/dL Est GFR (CKD-EPI)AfAm (>60 ml/min/1.73 sqM) Est GFR (CKD-EPI)NonAf (>60 ml/min/1.73 sqM) Glucose (74-99) mg/dL POC Glucose (mg/dL) 121 H (75-99) mg/dL POC Glu Site Coordinator ID Madalyn Quiroz Calcium (8.4-10.2) mg/dL Magnesium (1.6-2.3) mg/dL Total Bilirubin (0.2-1.3) mg/dL AST (17-59) U/L ALT (4-49) U/L Alkaline Phosphatase (38-126) U/L Creatine Kinase (55-170) U/L Troponin I 0.039 H* (0.000-0.034) ng/mL Total Protein (6.3-8.2) g/dL Albumin (3.5-5.0) g/dL - EKG Data -: EKG Interpreted by Me EKG shows normal: sinus rhythm EKG Comments: The recessive a 61 appear interval 194 QRS duration 150 QT since QTC 494/467 red bundle-branch block pattern no acute ST-T wave changes - Radiology Data Radiology results: report reviewed (I did review the imaging and report no acute findings.), image reviewed Disposition Clinical Impression: Syncope, Dehydration, Elevated troponin Disposition: ADMITTED IP TO THIS [facility] Condition: Fair Referrals: Sandra Ivey MD [Primary Care Provider] - 1-2 days
[2019-10-30 11:00] LABS: Glucose,Whole Blood 121 mg/dL (75-99)
[2019-10-30 11:17] LABS: Basophils # (A) 0.1 k/uL (0-0.2); Basophils % (A) 1 %; Eosinophils # (A) 0.6 k/uL (0-0.7); Eosinophils % (A) 7 %; HCT 35.2 % (39.0-53.0); HGB 11.7 gm/dL (13.0-17.5); Lymphocytes # (A) 0.9 k/uL (1.0-4.8); Lymphocytes % (A) 11 %; MCH 32.6 pg (25.0-35.0); MCHC 33.1 g/dL (31.0-37.0); MCV 98.4 fL (80.0-100.0); Mean Platelet Volume 7.7; Monocytes # (A) 0.5 k/uL (0-1.0); Monocytes % (A) 6 %; Neutrophils % (A) 74 %; Platelet Count 253 k/uL (150-450); RBC 3.58 m/uL (4.30-5.90); RDW 13.3 % (11.5-15.5); WBC 8.2 k/uL (3.8-10.6)
[2019-10-30 11:27] LABS: INR 0.9 (<1.2); Prothrombin Time 9.6 sec (9.0-12.0)
[2019-10-30 11:31] LABS: Albumin 4.2 g/dL (3.5-5.0); Calcium 9.4 mg/dL (8.4-10.2); Magnesium 1.9 mg/dL (1.6-2.3); Potassium 4.7 mmol/L (3.5-5.1); Total Bilirubin 0.4 mg/dL (0.2-1.3); Total Protein 6.6 g/dL (6.3-8.2)
[2019-10-30 11:39] LABS: Partial Thromboplastin Time 20.3 sec (22.0-30.0)
--- NOTE | 2019-10-30 12:36 | XR ---
EXAMINATION TYPE: XR chest 2V DATE OF EXAM: 10/30/2019 COMPARISON: Chest x-ray September 28, 2019 HISTORY: Syncope and weakness. TECHNIQUE: Frontal and lateral views of the chest are obtained. FINDINGS: There is some chronic parenchymal changes without suspicious new focal air space opacity, pleural effusion, or pneumothorax seen. The cardiac silhouette size remains within normal limits. The osseous structures are intact. Prominent gas-filled bowel loop left upper quadrant below diaphrag m redemonstrated. IMPRESSION: No acute cardiopulmonary process. No significant change from prior.
[2019-10-30] MEDS ORDERED: NALOXONE 0.4 MG/ML 1 ML VIAL IV PRN (14:01)
--- NOTE | 2019-10-30 16:18 | P.HPIM ---
History of Present Illness H&P Date: 10/30/19 Chief Complaint: Syncope This is a 84-year-old male with past medical history noted below who presented today to the emergency room with a syncopal episode. Most of the history was provided by the . She informed me that they were at [facility] and suddenly her said that he is not feeling well and was afraid to get up soon after he passed out and a number of people gathered and lift him and made him on a couch by that time patient was awake. She believed that he passed out for a few seconds. Patient himself denies any chest pain or shortness of breath prior to the event. No palpitation. No seizure-like activity reported by his . No urine incontinence. EMS were called and brought the patient to the ER. Patient informed me that he did not eat breakfast or had anything to drink other than a couple of coffee in the morning prior to going to [facility]. His believes that he was dehydrated. There was no head trauma reported. Patient was evaluated in the ER and currently placed on observation Review of Systems Review of system: 14 points review of systems were obtained and were negative except to what were mentioned in the HPI. Past Medical History Past Medical History: Cancer, Dementia, Hyperlipidemia, Hypertension, Memory Impairment, Osteoarthritis (OA), Prostate Disorder, Vascular Disorder Additional Past Medical History / Comment(s): Hx prostate and skin cancer; PAST ASBESTOS EXPOSURE. C/O Pain in Rt leg w/ walking. History of Any Multi-Drug Resistant Organisms: None Reported Past Surgical History: Appendectomy, Joint Replacement Additional Past Surgical History / Comment(s): 02/12/15 Total L hip arthroplasty. Exc skin CA face, mass removed from base of spine, vascular surgery lt leg, jabari cataracts, 09-23-16 TOTAL RT HIP, hemorrhoidectomy Past Anesthesia/Blood Transfusion Reactions: No Reported Reaction Past Psychological History: No Psychological Hx Reported Past Alcohol Use History: Occasional Past Drug Use History: None Reported - Past Family History Brother(s) Family Medical History: Deep Vein Thrombosis (DVT) Mother Family Medical History: No Reported History Father Additional Family Medical History / Comment(s): AT AGE 50 Medications and Allergies Home Medications Medication Instructions Recorded Confirmed Type Atorvastatin [Lipitor] 80 mg PO HS 01/31/15 10/30/19 History Clopidogrel Bisulfate [Clopidogrel] 75 mg PO DAILY 01/31/15 10/30/19 History Donepezil HCl [Aricept] 10 mg PO HS 09/17/15 10/30/19 History Aspirin 325 mg PO HS 10/30/19 10/30/19 History Cholecalciferol [Vitamin D3 (25 1,000 unit PO BID 10/30/19 10/30/19 History Mcg = 1000 Iu)] Multivitamins, Thera [Multivitamin 1 tab PO HS 10/30/19 10/30/19 History (formulary)] Sodium Bicarbonate Tab 650 mg PO DAILY 10/30/19 10/30/19 History amLODIPine [Norvasc] 5 mg PO DAILY 10/30/19 10/30/19 History Allergies Allergy/AdvReac Type Severity Reaction Status Date / Time No Known Allergies Allergy Verified 10/30/19 11:45 Physical Exam Vitals: Vital Signs Temp Pulse Pulse Pulse Pulse Pulse Resp 10/30/19 14:00 73 16 10/30/19 11:00 73 10/30/19 10:53 61 73 61 10/30/19 10:45 97.5 F L 65 16 BP BP BP BP Pulse Ox 10/30/19 14:00 124/72 98 10/30/19 11:00 10/30/19 10:53 153/67 143/70 154/68 10/30/19 10:45 161/66 Intake and Output 10/30/19 10/30/19 10/30/19 06:59 14:59 22:59 Other: Weight 68.039 kg General: The patient is awake and alert, in no distress Eye: there is normal conjunctiva bilaterally. Neck: The neck is supple, there is no JVD. Cardiovascular: Normal S1-S2, no S3-S4, no murmurs. Respiratory: Lungs clear to auscultation bilaterally Gastrointestinal: Abdomen is soft, nontender Musculoskeletal: There is no pedal edema. Neurological:. Speech is normal. Skin: Skin is warm and dry Results CBC & Chem 7: 10/30/19 10:56 10/30/19 10:56 Labs: Abnormal Lab Results - Last 24 Hours (Table) 10/30/19 10/30/19 10/30/19 Range/Units 10:56 10:56 10:56 RBC 3.58 L (4.30-5.90) m/uL Hgb 11.7 L (13.0-17.5) gm/dL Hct 35.2 L (39.0-53.0) % Lymphocytes # 0.9 L (1.0-4.8) k/uL APTT 20.3 L (22.0-30.0) sec BUN 45 H (9-20) mg/dL Creatinine 1.80 H (0.66-1.25) mg/dL Glucose 124 H (74-99) mg/dL POC Glucose (mg/dL) (75-99) mg/dL Troponin I (0.000-0.034) ng/mL 10/30/19 10/30/19 10/30/19 Range/Units 10:56 10:58 14:22 RBC (4.30-5.90) m/uL Hgb (13.0-17.5) gm/dL Hct (39.0-53.0) % Lymphocytes # (1.0-4.8) k/uL APTT (22.0-30.0) sec BUN (9-20) mg/dL Creatinine (0.66-1.25) mg/dL Glucose (74-99) mg/dL POC Glucose (mg/dL) 121 H (75-99) mg/dL Troponin I 0.039 H* 0.042 H* (0.000-0.034) ng/mL Assessment and Plan Assessment: 1. Syncopal episode, exact etiology unclear. Most likely vasovagal with definitely component of dehydration.. Twelve-lead EKG showed no arrhythmia. We will continue telemetry monitoring. Orthostatic blood pressure checked and negative. It is unclear to me patient received IV bolus by EMS. I would obtain echocardiogram. He should have similar presentation a year ago and carotid Doppler in November 2018 showed no hemodynamically significant stenosis. 2. Troponin elevation, most likely non-thrombotic troponin leak. Patient denies any chest pain. Twelve-lead EKG with no acute ischemic changes. I would continue to trend troponin. Cardiology consulted. 3. Essential hypertension: Blood pressure within acceptable range 4. Stage IIIB chronic kidney disease, creatinine around baseline 5. Peripheral vascular occlusive disease status post stent placement on Plavix
[2019-10-30] MEDS: SODIUM CHLORIDE 0.9% 1,000 ML IV SCH (17:56)
[2019-10-30 18:30] LABS: Appearance,Urine Clear (Clear); Bilirubin,Urine Negative (Negative); Blood,Urine Negative (Negative); Color,Urine Light Yellow; Glucose,Urine (UA) Negative (Negative); Ketones,Urine Negative (Negative); Leukocyte Esterase,Urine Negative (Negative); Nitrite,Urine Negative (Negative); PH, Urine 5.5 (5.0-8.0); Protein,Urine Trace (Negative); Specific Gravity,Urine 1.012 (1.001-1.035); Urobilinogen,Urine <2.0 mg/dL (<2.0)
[2019-10-30] MEDS: ATORVASTATIN 80 MG TAB PO SCH (21:27)
[2019-10-30] MEDS: CHOLECALCIFEROL 1,000 UNIT TAB PO SCH (21:27)
[2019-10-30] MEDS: MULTIVITAMINS, THERA 1 EACH TAB PO SCH (21:27)
[2019-10-30] MEDS: ASPIRIN 325 MG TAB PO SCH (21:27)
[2019-10-30] MEDS: DONEPEZIL 10 MG TAB PO SCH (21:28)
[2019-10-31] MEDS: SODIUM CHLORIDE 0.9% 1,000 ML IV SCH ×2 (06:26→18:49)
[2019-10-31] MEDS ORDERED: amLODIPine 5 MG TAB PO SCH (09:00)
[2019-10-31] MEDS: CHOLECALCIFEROL 1,000 UNIT TAB PO SCH ×2 (09:26→20:31)
[2019-10-31] MEDS: CLOPIDOGREL 75 MG TAB PO SCH (09:26)
[2019-10-31] MEDS: SODIUM BICARBONATE TAB 650 MG TAB PO SCH (09:26)
[2019-10-31] MEDS ORDERED: amLODIPine 10 MG TAB PO SCH (09:30)
--- NOTE | 2019-10-31 11:07 | ECHOF ---
Referral Reason:syncope MEASUREMENTS -------- HEIGHT: 175.3 cm WEIGHT: 64.4 kg BP: 163/72 RVIDd: 2.6 cm (< 3.3) IVSd: 1.6 cm (0.6 - 1.1) LVIDd: 3.3 cm (3.9 - 5.3) LVPWd: 1.6 cm (0.6 - 1.1) IVSs: 1.7 cm LVIDs: 1.9 cm LVPWs: 1.9 cm LAESV Index (A-L): 29.93 ml/m Ao Diam: 2.8 cm (2.0 - 3.7) MV EXCURSION: 12.108 mm (> 18.000) MV EF SLOPE: 45 mm/s (70 - 150) EPSS: 0.6 cm MV E Singh: 0.81 m/s MV DecT: 199 ms MV A Singh: 1.03 m/s MV E/A Ratio: 0.78 RAP: 5.00 mmHg RVSP: 21.07 mmHg FINDINGS -------- This was a technically difficult study with suboptimal apical views. The left ventricular size is normal. There is moderate concentric left ventricular hypertrophy. O verall left ventricular systolic function is normal with, an EF between 55 - 60 %. The diastolic fi lling pattern is normal for the age of the patient 13.06. The right ventricle is normal in size. LA is midly dilated 29-33ml/m2. The right atrial size is normal. 5.0mg of Lumason was utilized for enhancement of images Interatrial and interventricular septum intact. The aortic valve is trileaflet and appears structurally normal. There is mild aortic valve sclerosi s. There is no evidence of aortic regurgitation. There is no evidence of aortic stenosis. No mitral regurgitation. Mild tricuspid regurgitation present. There is no evidence of pulmonary hypertension. The right v entricular systolic pressure, as measured by Doppler, is 21.07mmHg. There is no pulmonic regurgitation present. The aortic root size is normal. IVC Not well visulized. There is no pericardial effusion. CONCLUSIONS -------- 1. The left ventricular size is normal. 2. There is moderate concentric left ventricular hypertrophy. 3. Overall left ventricular systolic function is normal with, an EF between 55 - 60 %. 4. The diastolic filling pattern is normal for the age of the patient 13.06 5. LA is midly dilated 29-33ml/m2. 6. There is mild aortic valve sclerosis. 7. Mild tricuspid regurgitation present. [employer] OPERATOR: Lora Gross RDCS
--- NOTE | 2019-10-31 12:01 | P.CRDCN ---
History of Present Illness History of present illness: This is Martha Carias PA-C dictating a consult on this patient The patient was interviewed and examined by me as well as by Dr. Friedman Case discussed with Dr. Friedman and he agrees with the plan of care HPI Patient is an 84-year-old male with a history of hypertension, PAD status post stenting, dementia who presented after syncopal episode. He follows with Dr. Grant. Patient does not recall the syncopal episode or the events leading up to it. His is at the bedside and history was obtained from her. The patient was at [facility] for about 25 minutes when he told his he" did not feel right". He did not complain of any specific symptoms to her. According to her she denied nausea. She states he did not have any water and was very hot at the [facility] as a did not have any air conditioning. He had been kneeling and standing several times. He was sitting down and his symptoms came on. According to his he looked "pasty". She states he was profusely sweating. He then put his head down and lost consciousness. According to his his hands and head were shaking. His reports they could not feel a pulse and he stopped breathing. They laid him down and after a few minutes he woke up and his color returned. His states this happened one other time about a year ago. He was outside in the heat working in the yard. He reported he thought he was going to have diarrhea and he was brought to the bathroom. While sitting on the toilet he had the same episode. He was shaking and lost consciousness. Upon arrival to the emergency department here he was afebrile, pulse in the 60s, respirations 16, blood pressure 161/66 oxygen saturation 98% on room air. His EKG showed sinus mechanism with right bundle branch block, no acute ST segment c hanges. Labs are significant for BUN 45, creatinine 1.8, borderline abnormal troponin. Patient seen and examined resting in bed. Currently denies any symptoms. He has gotten up to use the restroom and has not had any dizziness. No chest pain or shortness of breath. ROS: No fevers, chills or rigors, no cough, phlegm or expectoration, no nausea, vomiting or diarrhea, no hematuria, dysuria, no musculoskeletal complaints, no strokes or seizures, no skin lesions. EXAMINATION: Patient is afebrile, pulse in the 70s, respirations 18, blood pressure 173/72, oxygen saturation 98% on room air Patient seen and examined resting in bed, in no acute distress Lungs clear to auscultation bilaterally, no wheezing rhonchi or crackles Heart is regular, no audible murmurs Carotid bruit noted on the right No elevated JVD No lower extremity edema REVIEW OF LABS, ECG & MEDICAL DATA WBC 8.2, hemoglobin 11.7, platelets 253, potassium 4.7, BUN 45, creatinine 1.8, magnesium 1.9 Troponins 0.047, 0.042, 0.039 IMPRESSION / ASSESSMENT: #1 syncope, possibly vasovagal versus bradycardia or arrhythmia, orthostatic VS negative #2 hypertension, blood pressure has been elevated #3 PAD status post stenting #4 CKD #5 abnormal troponins, flat, likely secondary to CKD and hypoperfusion during syncopal episode PLAN: Obtain 2-D echocardiogram and Doppler studies to assess cardiac structure and function Monitor telemetry for any arrhythmias or bradycardia, if no arrhythmias or bradycardia are seen on telemetry will implant a loop monitor prior to discharge Dr. Friedman discussed this with the patient's and daughter and they are agreeable to the plan Encourage hydration Increase amlodipine to 5 mg twice daily Past Medical History Past Medical History: Cancer, Dementia, Hyperlipidemia, Hypertension, Memory Impairment, Osteoarthritis (OA), Prostate Disorder, Vascular Disorder Additional Past Medical History / Comment(s): Hx prostate and skin cancer; PAST ASBESTOS EXPOSURE. C/O Pain in Rt leg w/ walking. History of Any Multi-Drug Resistant Organisms: None Reported Past Surgical History: Appendectomy, Joint Replacement Additional Past Surgical History / Comment(s): 02/12/15 Total L hip arthroplasty. Exc skin CA face, mass removed from base of spine, vascular surgery lt leg, jabari cataracts, 09-23-16 TOTAL RT HIP, hemorrhoidectomy Past Anesthesia/Blood Transfusion Reactions: No Reported Reaction Past Psychological History: No Psychological Hx Reported Past Alcohol Use History: Occasional Past Drug Use History: None Reported - Past Family History Brother(s) Family Medical History: Deep Vein Thrombosis (DVT) Mother Family Medical History: No Reported History Father Additional Family Medical History / Comment(s): AT AGE 50 Medications and Allergies Home Medications Medication Instructions Recorded Confirmed Type Atorvastatin [Lipitor] 80 mg PO HS 01/31/15 10/30/19 History Clopidogrel Bisulfate [Clopidogrel] 75 mg PO DAILY 01/31/15 10/30/19 History Donepezil HCl [Aricept] 10 mg PO HS 09/17/15 10/30/19 History Aspirin 325 mg PO HS 10/30/19 10/30/19 History Cholecalciferol [Vitamin D3 (25 1,000 unit PO BID 10/30/19 10/30/19 History Mcg = 1000 Iu)] Multivitamins, Thera [Multivitamin 1 tab PO HS 10/30/19 10/30/19 History (formulary)] Sodium Bicarbonate Tab 650 mg PO DAILY 10/30/19 10/30/19 History amLODIPine [Norvasc] 5 mg PO DAILY 10/30/19 10/30/19 History Allergies Allergy/AdvReac Type Severity Reaction Status Date / Time No Known Allergies Allergy Verified 10/30/19 11:45 Physical Exam Vitals: Vital Signs Temp Pulse Pulse Pulse Resp BP BP 10/31/19 11:45 98.4 F 72 18 173/72 10/31/19 08:00 97.9 F 64 18 191/77 10/31/19 04:00 98.3 F 63 18 10/31/19 00:00 98.3 F 63 16 159/67 10/30/19 20:00 98.1 F 66 17 157/63 10/30/19 17:09 97.4 F L 78 18 10/30/19 14:00 73 16 124/72 BP BP Pulse Ox 10/31/19 11:45 186/80 98 10/31/19 08:00 97 10/31/19 04:00 163/72 97 10/31/19 00:00 99 10/30/19 20:00 96 10/30/19 17:09 170/75 97 10/30/19 14:00 98 Intake and Output 10/30/19 10/31/19 10/31/19 22:59 06:59 14:59 Intake Total 120 180 Output Total 350 Balance -230 180 Intake: Oral 120 180 Output: Urine 350 Other: Voiding Method Toilet Toilet Weight 64.5 kg Results 10/30/19 10:56 10/30/19 10:56 Cardiac Enzymes 0710/30/19 10/30/19 Range/Units 10:56 14:22 17:32 Troponin I 0.039 H* 0.042 H* 0.047 H* (0.000-0.034) ng/mL Current Medications Generic Name Dose Route Start Last Admin Trade Name Freq PRN Reason Stop Dose Admin Amlodipine Besylate 5 mg 11/01/19 09:00 Norvasc PO BID NIALL Aspirin 325 mg 10/30/19 21:00 10/30/19 21:27 Aspirin PO 325 mg HS NIALL Administration Atorvastatin Calcium 80 mg 10/30/19 21:00 10/30/19 21:27 Lipitor PO 80 mg HS NIALL Administration Cholecalciferol 1,000 unit 10/30/19 21:00 10/31/19 09:26 Vitamin D3 (25 Mcg = 1000 Iu) PO 1,000 unit BID NIALL Administration Clopidogrel Bisulfate 75 mg 10/31/19 09:00 10/31/19 09:26 Plavix PO 75 mg DAILY NIALL Administration Donepezil HCl 10 mg 10/30/19 21:00 10/30/19 21:28 Aricept PO 10 mg HS NIALL Administration Sodium Chloride 1,000 mls @ 80 mls/hr 10/30/19 14:15 10/31/19 06:26 Saline 0.9% IV 80 mls/hr .[id number] NIALL Administration Multivitamins 1 each 10/30/19 21:00 10/30/19 21:27 Theragran PO 1 each HS NIALL Administration Naloxone HCl 0.2 mg 10/30/19 14:01 Narcan IV Q2M PRN Opioid Reversal Sodium Bicarbonate 650 mg 10/31/19 09:00 10/31/19 09:26 Sodium Bicarbonate Tab PO 650 mg DAILY NIALL Administration Intake and Output 10/30/19 10/31/19 10/31/19 22:59 06:59 14:59 Intake Total 120 180 Output Total 350 Balance -230 180 Intake: Oral 120 180 Output: Urine 350 Other: Voiding Method Toilet Toilet Weight 64.5 kg 10/30/19 10:56 10/30/19 10:56
--- NOTE | 2019-10-31 14:58 | P.PN ---
Subjective Progress Note Date: 10/31/19 Patient is doing well today. No acute events overnight reported by nursing staff. Blood pressure not well controlled. Objective - Vital Signs Vital signs: Vital Signs Temp 98.4 F 10/31/19 11:45 Pulse 72 10/31/19 11:45 Resp 18 10/31/19 11:45 BP 173/72 10/31/19 11:45 Pulse Ox 98 10/31/19 11:45 Intake & Output 10/30/19 10/31/19 10/31/19 18:59 06:59 18:59 Intake Total 120 740 Output Total 350 Balance 120 -350 740 Weight 68.039 kg 64.5 kg Intake: Intake, IV Titration 560 Amount Sodium Chloride 0.9% 1, 560 000 ml @ 80 mls/hr IV . [id number] NIALL Rx#:[id number] Oral 120 180 Output: Urine 350 Other: Voiding Method Toilet # Voids 1 - Exam General: The patient is awake and alert, in no distress Eye: there is normal conjunctiva bilaterally. Neck: The neck is supple, there is no JVD. Cardiovascular: Normal S1-S2, no S3-S4, no murmurs. Respiratory: Lungs clear to auscultation bilaterally Gastrointestinal: Abdomen is soft, nontender Musculoskeletal: There is no pedal edema. Neurological:. Speech is normal. Skin: Skin is warm and dry - Labs CBC & Chem 7: 10/30/19 10:56 10/30/19 10:56 Labs: Abnormal Lab Results - Last 24 Hours (Table) 10/30/19 10/30/19 10/30/19 Range/Units 14:22 17:32 18:03 Troponin I 0.042 H* 0.047 H* (0.000-0.034) ng/mL Urine Protein Trace H (Negative) Assessment and Plan Assessment: 1. Syncopal episode, exact etiology unclear. Most likely vasovagal with definitely component of dehydration.. Twelve-lead EKG showed no arrhythmia. We will continue telemetry monitoring. Orthostatic blood pressure checked and negative. Echocardiogram showed preserved EF with no significant valvular abnormalities. Seen and evaluated by cardiology. Considering loop recorder outpatient. Patient had similar presentation a year ago and carotid Doppler in November 2018 showed no hemodynamically significant stenosis. 2. Troponin elevation, most likely non-thrombotic troponin leak. Patient denies any chest pain. Twelve-lead EKG with no acute ischemic changes. I would continue to trend troponin. Cardiology consulted. 3. Essential hypertension: Blood pressure not well controlled. Norvasc increased to 5 mg twice daily. We'll continue to monitor closely. 4. Stage IIIB chronic kidney disease, creatinine around baseline 5. Peripheral vascular occlusive disease status post stent placement on Plavix
[2019-10-31] MEDS: ATORVASTATIN 80 MG TAB PO SCH (20:30)
[2019-10-31] MEDS: DONEPEZIL 10 MG TAB PO SCH (20:31)
[2019-10-31] MEDS: MULTIVITAMINS, THERA 1 EACH TAB PO SCH (20:31)
[2019-10-31] MEDS: ASPIRIN 325 MG TAB PO SCH (20:31)
[2019-10-31 21:08] LABS: Glucose,Whole Blood 105 mg/dL (75-99)
--- NOTE | 2019-10-31 22:29 | P.CNNES ---
History of Present Illness Consult date: 10/31/19 Requesting physician: Janes Tomlinson Reason for Consult: Syncope History of Present Illness: Patient is a 84-year-old male, was brought to the hospital by ambulance after he had a syncopal spell in the scientologist yesterday at 10 AM. Patient has history of dementia, therefore unable to provide much history. According to patient's , who was present, states that yesterday it was very hot, and he went to the scientologist. It was very hot and the air conditioner was not working. During the service, he has to stand up and down and he did it 4 times. He was getting ready to the [facility] He was sitting in the pew and he leaned over, stated that he cannot go, and was not feeling good. [facility]. Before he could go, he passed out,. Some other people laid him down, and he was noted not breathing and was laid on the sofa. As soon as he was laid down, he came to right away. He was answering appropriately. Long before EMS arrived, he was talking coherently, his facial color was back. When EMS arrived, he was laying on the couch in his scientologist as lobby. Patient was alert and oriented. He was warm to touch and diaphoretic. Denies dizziness. His blood pressure was 160/70, pulse rate 64 saturation 98%. There was no tongue bite, or loss of control of urine. No convulsive activity noted. Chest x-ray showed no acute cardiopulmonary process. EKG shows normal sinus r hythm. Right bundle-branch block. 2-D echo showed normal left-ventricular size. Moderate concentric LVH. EF is 55-60%. Left atrium is mildly dilated. Mild aortic valve sclerosis. Patient had a carotid Doppler on 11/25/2018 which revealed stenosis of approximately 50-69% within the right ICA. Although there appears to be at least moderate atherosclerosis of left carotid bulb, no medically significant stenosis on the left is seen by consensus criteria. Patient's blood test shows WBC 8.2 hemoglobin 11.7, platelets 253. PT/PTT normal. Electrolytes normal, BUN 45, creatinine 1.80. LFTs are normal. Troponins are mildly elevated. UA negative Patient had undergone orthostatics, in which his supine blood pressure was 154/68 with pulse rate 96. On sitting up was 153/67, pulse rate 95. Standing up was 143/70 with pulse of 94. Patient had a similar syncopal episode in November 2018, in which she was clearly dehydrated. He was seen by Dr. Madera at that time. Patient had an EEG, which was normal. Carotid Doppler is as mentioned above. Patient has history of dementia, follows up with neurologist Dr. Joseph's locally. Review of Systems Denies abdominal pain, nausea vomiting diarrhea. Denies chest pain shortness of breath. As per HPI. All other review of systems unremarkable. Past Medical History Past Medical History: Cancer, Dementia, Hyperlipidemia, Hypertension, Memory Impairment, Osteoarthritis (OA), Prostate Disorder, Vascular Disorder Additional Past Medical History / Comment(s): Hx prostate and skin cancer; PAST ASBESTOS EXPOSURE. C/O Pain in Rt leg w/ walking. History of Any Multi-Drug Resistant Organisms: None Reported Past Surgical History: Appendectomy, Joint Replacement Additional Past Surgical History / Comment(s): 02/12/15 Total L hip arthroplasty. Exc skin CA face, mass removed from base of spine, vascular surgery lt leg, jabari cataracts, 09-24-15 TOTAL RT HIP, hemorrhoidectomy Past Anesthesia/Blood Transfusion Reactions: No Reported Reaction Past Psychological History: No Psychological Hx Reported Past Alcohol Use History: Occasional Past Drug Use History: None Reported - Past Family History Brother(s) Family Medical History: Deep Vein Thrombosis (DVT) Mother Family Medical History: No Reported History Father Additional Family Medical History / Comment(s): AT AGE 50 Medications and Allergies Home Medications Medication Instructions Recorded Confirmed Type Atorvastatin [Lipitor] 80 mg PO HS 01/31/15 10/30/19 History Clopidogrel Bisulfate [Clopidogrel] 75 mg PO DAILY 01/31/15 10/30/19 History Donepezil HCl [Aricept] 10 mg PO HS 09/17/15 10/30/19 History Aspirin 325 mg PO HS 10/30/19 10/30/19 History Cholecalciferol [Vitamin D3 (25 1,000 unit PO BID 10/30/19 10/30/19 History Mcg = 1000 Iu)] Multivitamins, Thera [Multivitamin 1 tab PO HS 10/30/19 10/30/19 History (formulary)] Sodium Bicarbonate Tab 650 mg PO DAILY 10/30/19 10/30/19 History amLODIPine [Norvasc] 5 mg PO DAILY 10/30/19 10/30/19 History Allergies Allergy/AdvReac Type Severity Reaction Status Date / Time No Known Allergies Allergy Verified 10/30/19 11:45 Physical Examination - Vital Signs Vital Signs: Vital Signs Temp Pulse Pulse Resp BP BP Pulse Ox 10/31/19 15:46 70 18 10/31/19 15:44 98.7 F 70 18 188/80 171/70 96 10/31/19 11:45 98.4 F 72 18 173/72 186/80 98 10/31/19 08:00 97.9 F 64 18 191/77 97 10/31/19 04:00 98.3 F 63 18 163/72 97 10/31/19 00:00 98.3 F 63 16 159/67 99 Intake and Output 10/31/19 10/31/19 10/31/19 06:59 14:59 22:59 Intake Total 920 Output Total 400 Balance 920 -400 Intake: Intake, IV Titration 560 Amount Sodium Chloride 0.9% 1, 560 000 ml @ 80 mls/hr IV . [id number] [facility] Rx#:[id number] Oral 360 Output: Urine 400 Other: Voiding Method Toilet # Voids 1 Weight 64.5 kg On examination patient is an elderly male, in no acute distress. He is alert and awake. Patient could not tell what month or year is it. He does not know what building this is an. His speech and language functions are normal. No aphasia. On preliminary examination pupils are round and reactive to light, visual davis are full, extraocular muscles are intact with no nystagmus. Face is symmetric, tongue protrudes the midline. Palatal elevation and sensation normal hearing is normal for age. Shoulder shrug normal. On muscle strength testing there is no pronator drift and the strength is normal in arms and legs distally and proximally. Reflexes are symmetric. Plantars downgoing. Sensory touch is equal. No ataxia for [id number] testing. Tone and bulk of muscles normal. Gait deferred. Patient has mild right carotid bruit. No murmur. S1 and S2 audible. No edema. Chest is clear. Abdomen soft nontender. Results - Laboratory Findings CBC and BMP: 10/30/19 10:56 10/30/19 10:56 Abnormal Lab Findings: Abnormal Labs 10/30/19 10/30/19 10/30/19 10:56 10:56 10:56 RBC 3.58 L Hgb 11.7 L Hct 35.2 L Lymphocytes # 0.9 L APTT 20.3 L BUN 45 H Creatinine 1.80 H Glucose 124 H POC Glucose (mg/dL) Troponin I Urine Protein 10/30/19 10/30/19 10/30/19 10:56 10:58 14:22 RBC Hgb Hct Lymphocytes # APTT BUN Creatinine Glucose POC Glucose (mg/dL) 121 H Troponin I 0.039 H* 0.042 H* Urine Protein 10/30/19 10/30/19 17:32 18:03 RBC Hgb Hct Lymphocytes # APTT BUN Creatinine Glucose POC Glucose (mg/dL) Troponin I 0.047 H* Urine Protein Trace H Assessment and Plan Assessment: * 84-year-old male admitted with syncopal spell. Likely vasovagal. Rule out arrhythmia. Seizure very unlikely. * Mildly elevated cardiac enzymes. * History of moderate right ICA stenosis. * Dementia, currently on donepezil. Plan: * Patient has moderate right ICA stenosis as per carotid Doppler from November 2018. We will repeat carotid Doppler. * Cardiology is also on the case. Patient on telemetry monitoring. * Patient and his admits that he does not drink enough fluids. He probably was dehydrated. Patient advised to stay well hydrated. * Neurologically clear, if carotid Doppler comes back negative/stable. * Patient on dual antiplatelet medication and statins.
[2019-11-01] MEDS: SODIUM CHLORIDE 0.9% 1,000 ML IV SCH (03:35)
[2019-11-01 08:55] LABS: Basophils # (A) 0.1 k/uL (0-0.2); Basophils % (A) 2 %; Eosinophils # (A) 0.6 k/uL (0-0.7); Eosinophils % (A) 10 %; HCT 32.1 % (39.0-53.0); HGB 10.6 gm/dL (13.0-17.5); Lymphocytes # (A) 0.9 k/uL (1.0-4.8); Lymphocytes % (A) 14 %; MCH 32.3 pg (25.0-35.0); MCHC 32.9 g/dL (31.0-37.0); Mean Platelet Volume 7.8; Monocytes # (A) 0.4 k/uL (0-1.0); Monocytes % (A) 6 %; Neutrophils # (A) 4.3 k/uL (1.3-7.7); Neutrophils % (A) 67 %; Platelet Count 238 k/uL (150-450); RBC 3.28 m/uL (4.30-5.90); RDW 13.4 % (11.5-15.5); WBC 6.5 k/uL (3.8-10.6)
[2019-11-01] MEDS: amLODIPine 5 MG TAB PO SCH ×2 (09:00→20:49)
[2019-11-01] MEDS: CLOPIDOGREL 75 MG TAB PO SCH (09:00)
[2019-11-01] MEDS: SODIUM BICARBONATE TAB 650 MG TAB PO SCH (09:00)
[2019-11-01] MEDS: CHOLECALCIFEROL 1,000 UNIT TAB PO SCH ×2 (09:00→20:49)
[2019-11-01 09:10] LABS: Calcium 8.7 mg/dL (8.4-10.2); Potassium 4.4 mmol/L (3.5-5.1)
[2019-11-01] MEDS ORDERED: IV FLUID CONTINUATION 800 ML IV ONE (10:28)
[2019-11-01] MEDS ORDERED: LIDOCAINE 1% INJ 10MG/ML (20 ML MDV) ONE (10:44)
[2019-11-01] MEDS ORDERED: MIDAZOLAM 2 MG/2 ML VIAL IV ONE (10:47)
[2019-11-01] MEDS ORDERED: LIDOCAINE 1% INJ 10MG/ML (20 ML MDV) SQ ONE ×2 (10:49)
--- NOTE | 2019-11-01 11:06 | P.PCN ---
Preoperative Diagnosis: Loop monitor implant Healthcare Technician: Dr. Friedman Operators: Dr. Friedman and Martha Carias PA-C Indication: Recurrent infrequent syncope Patient was brought to the EP lab in a fasting state. Written informed consent was obtained prior to the procedure. The left pectoral area was prepped and draped per protocol. Intravenous antibiotic was administered preoperatively. A subcutaneous Loop monitor was implanted successfully and the wound was closed per protocol. The device was programmed to detect significant hien- arrhythmic and tachy-arrhythmic events, per protocol. Device and programming details: Programmed syncope protocol Patient underwent EP procedure under conscious sedation/moderate sedation under Dr. Friedman's supervision, monitoring of the level of consciousness and physiologic parameters including but not limited to vital signs and oxygenation. Patient tolerated the procedure well without any acute complications. Start time: 1047 Stop time: 11:00
--- NOTE | 2019-11-01 12:06 | P.PRLE ---
RE: RajeshReymundo Dear Sandra Mr. Mena was admitted with episodes of loss of consciousness while sitting, recurrent episodes While this is most likely related to vasovagal episodes he does have an underlying right bundle branch block and a loop monitor was implanted to look for any sudden/severe bradycardia that could explain his loss of consciousness If we do find any paroxysmal AV block or severe sudden pauses, then and only then would a permanent pacemaker be indicated With vasovagal episodes, mild sinus bradycardia is expected Thank you for entrusting me with the care of the patient Warm regards Sincerely Chapito Friedman
--- NOTE | 2019-11-01 12:51 | P.PN ---
Subjective This is Martha Carias PA-C dictating a progress note on this patient The patient was interviewed and examined by me as well as by Dr. Friedman Case discussed with Dr. Friedman and he agrees with the plan of care HPI/interval history Patient is an 84-year-old male with a history of hypertension, PAD status post stenting, dementia who presented after syncopal episode which occurred while sitting in denominational. Labs revealed relative dehydration and borderline abnormal troponins. Orthostatic vital signs were negative. So far we have not doc umented any arrhythmias on telemetry. Lowest heart rate was 49/m. The patient has not had any recurrence of his symptoms since being in the hospital. Yesterday we increased his amlodipine to 5 mg twice daily. His blood pressure initially improved but is trending high again this morning. Patient seen and examined resting in bed. Denies any complaints. No dizziness, chest pain or shortness of breath. EXAMINATION Patient is afebrile, pulse in the 60s, respirations 18, blood pressure 184/84, oxygen saturation 98% on room air Patient seen and examined resting in bed, in no acute distress Lungs clear to auscultation bilaterally Heart is regular, systolic murmur audible REVIEW OF LABS, ECG WBC 6.5, hemoglobin 10.6, platelets 238, potassium 4.4, BUN 30, creatinine 1.48 Echocardiogram shows EF 55-60%, moderate LVH IMPRESSION / ASSESSMENT: #1 syncope, possibly vasovagal versus bradycardia or arrhythmia, orthostatic VS negative, neurology following #2 hypertension, blood pressure has been trending high, amlodipine was increased yesterday #3 PAD status post stenting #4 CKD #5 abnormal troponins, flat, likely secondary to CKD and hypoperfusion during syncopal episode PLAN: Proceed with loop monitor implanted to look for any sudden bradycardia arrhythmias that would explain his syncopal episodes Carotid Dopplers ordered, awaiting results continue to monitor BP, consider increasing antihypertensive medications cautiously depending on BP trends Objective - Vital Signs Vital signs: Vital Signs Temp 98.1 F 11/01/19 08:00 Pulse 60 11/01/19 08:00 Resp 18 11/01/19 11:30 BP 184/84 11/01/19 11:30 Pulse Ox 98 11/01/19 11:30 Intake & Output 10/31/19 11/01/19 11/01/19 18:59 06:59 18:59 Intake Total 920 240 200 Output Total 400 Balance 520 240 200 Intake: IV 200 Intake, IV Titration 560 Amount Sodium Chloride 0.9% 1, 560 000 ml @ 80 mls/hr IV . [id number] [facility] Rx#:[id number] Oral 360 240 Output: Urine 400 Other: Voiding Method Toilet # Voids 1 1 - Labs CBC & Chem 7: 11/01/19 08:28 11/01/19 08:28 Labs: Abnormal Lab Results - Last 24 Hours (Table) 10/31/19 11/01/19 11/01/19 Range/Units 21:01 08:28 08:28 RBC 3.28 L (4.30-5.90) m/uL Hgb 10.6 L (13.0-17.5) gm/dL Hct 32.1 L (39.0-53.0) % Lymphocytes # 0.9 L (1.0-4.8) k/uL Chloride 110 H (98-107) mmol/L BUN 30 H (9-20) mg/dL Creatinine 1.48 H (0.66-1.25) mg/dL Glucose 118 H (74-99) mg/dL POC Glucose (mg/dL) 105 H (75-99) mg/dL
--- NOTE | 2019-11-01 13:03 | US ---
EXAMINATION TYPE: US carotid duplex BILAT DATE OF EXAM: 11/01/2019 COMPARISON: Carotid ultrasound 11/25/2018 CLINICAL HISTORY: Syncope, right ICA stenosis. Carotid bruit. Syncope. EXAM MEASUREMENTS: RIGHT: Peak Systolic Velocity (PSV) cm/sec ----- Right CCA: 91.7 ----- Right ICA: 310 ----- Right ECA: 160 ICA/CCA ratio: 3.4 RIGHT: End Diastole cm/sec ----- Right CCA: 17.0 ----- Right ICA: 43.0 ----- Right ECA: 0.0 LEFT: Peak Systolic Velocity (PSV) cm/sec ----- Left CCA: 113 ----- Left ICA: 102 ----- Left ECA: 134 ICA/CCA ratio: 0.9 LEFT: End Diastole cm/sec ----- Left CCA: 17.2 ----- Left ICA: 21.1 ----- Left ECA: 0.0 VERTEBRALS (direction of flow): Right Vertebral: Antegrade Left Vertebral: Antegrade Rhythm: Normal Heterogeneous plaque bilaterally with increase in velocities noted at proximal right ICA, worsening s tenosis from prior exam. IMPRESSION: 1. Greater than 70% stenosis of the right internal carotid artery, increased from 2019 comparison. 2. No hemodynamically significant stenosis of the left internal carotid artery. 3. Atherosclerosis bilaterally, right greater than left. Criteria for Assigning % of Stenosis / Diameter reduction (Estimation based on the indirect measurements of the internal carotid artery velocities (ICA PSV). 1. Normal (no stenosis)=ICA PSV < 125 cm/s: ratio < 2.0: ICA EDV<40 cm/s. 2. Less than 50% stenosis=ICA PSV < 125 cm/s: ratio < 2.0: ICA EDV<40 cm/s. 3. 50 to 69% stenosis=ICA PSV of 125 to 230 cm/s: ration 2.0 ? 4.0: ICA EDV 40-100 cm/s. 4. Greater than 70% stenosis to near occlusion= ICA PSV > 230 cm/s: ratio > 4.0: ICA EDV > 100 cm/s. 5. Near occlusion= ICA PSV velocities may be low or undetectable: variable ratio and ICA EDV. 6. Total occlusion=unable to detect flow.
[2019-11-01] MEDS ORDERED: amLODIPine 5 MG TAB PO STA (13:15)
--- NOTE | 2019-11-01 14:16 | P.PN ---
Subjective Progress Note Date: 11/01/19 Patient is doing well today. No acute events overnight reported by nursing staff. Blood pressure not well controlled. Scheduled for loop recorder around noon Objective - Vital Signs Vital signs: Vital Signs Temp 98.1 F 11/01/19 08:00 Pulse 60 11/01/19 08:00 Resp 18 11/01/19 11:30 BP 184/84 11/01/19 11:30 Pulse Ox 98 11/01/19 11:30 Intake & Output 10/31/19 11/01/19 11/01/19 18:59 06:59 18:59 Intake Total 920 240 320 Output Total 400 Balance 520 240 320 Intake: IV 200 Intake, IV Titration 560 Amount Sodium Chloride 0.9% 1, 560 000 ml @ 80 mls/hr IV . [id number] [facility] Rx#:[id number] Oral 360 240 120 Output: Urine 400 Other: Voiding Method Toilet # Voids 1 1 - Exam General: The patient is awake and alert, in no distress Eye: there is normal conjunctiva bilaterally. Neck: The neck is supple, there is no JVD. Cardiovascular: Normal S1-S2, no S3-S4, no murmurs. Respiratory: Lungs clear to auscultation bilaterally Gastrointestinal: Abdomen is soft, nontender Musculoskeletal: There is no pedal edema. Neurological:. Speech is normal. Skin: Skin is warm and dry - Labs CBC & Chem 7: 11/01/19 08:28 11/01/19 08:28 Labs: Abnormal Lab Results - Last 24 Hours (Table) 10/31/19 11/01/19 11/01/19 Range/Units 21:01 08:28 08:28 RBC 3.28 L (4.30-5.90) m/uL Hgb 10.6 L (13.0-17.5) gm/dL Hct 32.1 L (39.0-53.0) % Lymphocytes # 0.9 L (1.0-4.8) k/uL Chloride 110 H (98-107) mmol/L BUN 30 H (9-20) mg/dL Creatinine 1.48 H (0.66-1.25) mg/dL Glucose 118 H (74-99) mg/dL POC Glucose (mg/dL) 105 H (75-99) mg/dL Assessment and Plan Assessment: 1. Syncopal episode, exact etiology unclear. Most likely vasovagal with definitely component of dehydration.. Twelve-lead EKG showed no arrhythmia. Seen and evaluated by cardiology and neurology, status post loop recorder implantation. Orthostatic blood pressure checked and negative. Echocardiogram showed preserved EF with no significant valvular abnormalities. Patient had similar presentation a year ago and carotid Doppler in November 2018 showed no hemodynamically significant stenosis. Repeat Doppler this admission showed slightly worsening stenosis but not hemodynamically significant. Continue to monitor carotid Doppler once a year. 2. Troponin elevation, most likely non-thrombotic troponin leak. Patient denies any chest pain. Twelve-lead EKG with no acute ischemic changes. I would continue to trend troponin. Cardiology consulted. 3. Essential hypertension: Blood pressure not well controlled. Norvasc increased to 5 mg twice daily. I would add hydralazine 25 mg twice a day to his regimen. 4. Stage IIIB chronic kidney disease, creatinine around baseline 5. Peripheral vascular occlusive disease status post stent placement on Plavix Patient had loop recorder implanted earlier still having some wheezing requiring dressing change. Blood pressure not well controlled. We will continue to monitor today in the hospital. Anticipate discharge home tomorrow
[2019-11-01] MEDS: hydrALAZINE HCL 25 MG TAB PO SCH ×2 (14:32→20:49)
--- NOTE | 2019-11-01 15:07 | P.PN ---
Subjective Progress Note Date: 11/01/19 Patient feels fine, offers no new complaints. No syncopal spells, no TIA. Patient's was also present. Objective - Vital Signs Vital signs: Vital Signs Temp 98.1 F 11/01/19 08:00 Pulse 60 11/01/19 08:00 Resp 18 11/01/19 11:30 BP 184/84 11/01/19 11:30 Pulse Ox 98 11/01/19 11:30 Intake & Output 10/31/19 11/01/19 11/01/19 18:59 06:59 18:59 Intake Total 920 240 880 Output Total 400 Balance 520 240 880 Intake: IV 200 Intake, IV Titration 560 560 Amount Sodium Chloride 0.9% 1, 560 560 000 ml @ 80 mls/hr IV . [id number] [facility] Rx#:[id number] Oral 360 240 120 Output: Urine 400 Other: Voiding Method Toilet # Voids 1 1 2 - Exam Unchanged. Patient very pleasant, awake. - Labs CBC & Chem 7: 11/01/19 08:28 11/01/19 08:28 Labs: Abnormal Lab Results - Last 24 Hours (Table) 10/31/19 11/01/19 11/01/19 Range/Units 21:01 08:28 08:28 RBC 3.28 L (4.30-5.90) m/uL Hgb 10.6 L (13.0-17.5) gm/dL Hct 32.1 L (39.0-53.0) % Lymphocytes # 0.9 L (1.0-4.8) k/uL Chloride 110 H (98-107) mmol/L BUN 30 H (9-20) mg/dL Creatinine 1.48 H (0.66-1.25) mg/dL Glucose 118 H (74-99) mg/dL POC Glucose (mg/dL) 105 H (75-99) mg/dL Assessment and Plan Assessment: * 84-year-old male admitted with syncopal spell. Likely vasovagal. Rule out arrhythmia. Seizure very unlikely. * Mildly elevated cardiac enzymes. 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 * Dementia, currently on donepezil. Plan: * Patient underwent carotid Doppler, which revealed > 70% stenosis right ICA. This has progressed as compared to the previous study from November 2018. Left ICA has no significant stenosis. * Suggest vascular surgical consultation. Patient may be a candidate for right ICA stenting vs CEA. * Cardiology is also on the case. Patient on telemetry monitoring, showing sinus rhythm. * Patient and his admits that he does not drink enough fluids. He probably was dehydrated. Patient advised to stay well hydrated. * Patient on dual antiplatelet medication and statins.
[2019-11-01] MEDS: MULTIVITAMINS, THERA 1 EACH TAB PO SCH (20:49)
[2019-11-01] MEDS: DONEPEZIL 10 MG TAB PO SCH (20:49)
[2019-11-01] MEDS: ASPIRIN 325 MG TAB PO SCH (20:49)
[2019-11-01] MEDS: ATORVASTATIN 80 MG TAB PO SCH (20:49)
[2019-11-02 04:14] VITALS: RESP 18
[2019-11-02] MEDS ORDERED: TOPICAL SKIN ADHESIVE 1 EACH AMP TOPICAL ONE (09:48)
[2019-11-02] MEDS: CHOLECALCIFEROL 1,000 UNIT TAB PO SCH (09:58)
[2019-11-02] MEDS: CLOPIDOGREL 75 MG TAB PO SCH (09:58)
[2019-11-02] MEDS: hydrALAZINE HCL 25 MG TAB PO SCH (09:58)
[2019-11-02] MEDS: SODIUM BICARBONATE TAB 650 MG TAB PO SCH (09:58)
[2019-11-02] MEDS: amLODIPine 5 MG TAB PO SCH (09:59)
--- NOTE | 2019-11-02 11:48 | P.PN ---
Subjective This is Martha Carias PA-C dictating a progress note on this patient The patient was interviewed and examined by me as well as by Dr. Friedman Case discussed with Dr. Friedman and he agrees with the plan of care HPI/interval history Patient is an 84-year-old male with a history of hypertension, PAD status post stenting, dementia who presented after syncopal episode which occurred while sitting in [employer]. Labs revealed relative dehydration and borderline abnormal troponins. Orthostatic vital signs were negative. So far we have not docum ented any arrhythmias on telemetry. Yesterday he underwent implantation of a loop monitor to monitor for arrhythmias percent bradycardia. Yesterday hydralazine 25 mg twice a day was added to his antihypertensive medication regimen his blood pressure is still in the 150 systolic today. Patient seen and examined resting in bed. Denies any dizziness, chest pain or shortness of breath. No falls or syncopal episodes. EXAMINATION Patient is afebrile, pulse in the 60s, respirations 18, blood pressure 152/68, oxygen saturation 97% Patient seen and examined resting in bed, in no acute distress Lungs clear to auscultation bilaterally Heart is regular, no audible murmurs REVIEW OF LABS, ECG No new labs today IMPRESSION / ASSESSMENT: #1 syncope, possibly vasovagal versus bradycardia or arrhythmia, orthostatic VS negative, status post implantation of a loop monitor, neurology following #2 hypertension, blood pressure has been trending high #3 PAD status post stenting #4 CKD #5 abnormal troponins, flat, likely secondary to CKD and hypoperfusion during syncopal episode #6 carotid atherosclerosis, recent carotid Doppler showing greater than 70% stenosis of the right internal carotid artery PLAN: Increase hydralazine 25 mg 3 times daily Continue atorvastatin 80 mg daily and dual antiplatelet therapy He is already on maximum medical management for carotid atherosclerosis, he will follow-up with Dr. Grant outpatient in the next one to 2 weeks, he will discuss further management for his carotid atherosclerosis He will follow-up with the device clinic 5 days post loop implant for suture removal Objective - Vital Signs Vital signs: Vital Signs Temp 97.4 F L 11/02/19 08:00 Pulse 65 11/02/19 08:00 Resp 18 11/02/19 08:00 BP 168/74 11/02/19 08:00 Pulse Ox 97 11/02/19 08:00 Intake & Output 11/01/19 11/02/19 11/02/19 18:59 06:59 18:59 Intake Total 880 240 476 Output Total 1 Balance 880 239 476 Intake: IV 200 Intake, IV Titration 560 Amount Sodium Chloride 0.9% 1, 560 000 ml @ 80 mls/hr IV . [id number] [facility] Rx#:[id number] Oral 120 240 476 Output: Urine 1 Other: Voiding Method Toilet Toilet # Voids 2 3 1 - Labs CBC & Chem 7: 11/01/19 08:28 11/01/19 08:28
--- NOTE | 2019-11-02 14:16 | P.DS ---
Providers Date of admission: 10/30/19 14:05 Expected date of discharge: 11/02/19 Attending physician: Arnoldo Rodriguez Consults: 10/30/19 14:02 Consult Physician Routine Consulting Provider: Vasile Corey Consult Reason/Comments: Syncope with elevated troponin Do you want consulting provider notified?: Yes 10/30/19 14:03 Consult Physician Routine Consulting Provider: Nilesh Roberts Consult Reason/Comments: Syncope Do you want consulting provider notified?: Yes, Notify in am Primary care physician: Sandra [facility] Course: This is a 84-year-old male who presented to the emergency room with a syncopal episode at [facility]. Patient was evaluated in the ER and admitted to the hospital for further management of his medical problems noted below. 1. Syncopal episode, exact etiology unclear. Most likely vasovagal with definitely component of dehydration. Twelve-lead EKG showed no arrhythmia. Seen and evaluated by cardiology and neurology, status post loop recorder implantation. Orthostatic blood pressure checked and negative. Echocardiogram showed preserved EF with no significant valvular abnormalities. Patient had similar presentation a year ago and carotid Doppler in November 2018 showed no hemodynamically significant stenosis. Repeat Doppler this admission showed slightly worsening stenosis but not hemodynamically significant. Patient is maximized on medical therapy. He will follow-up with Dr. Grant as directed by cardiology 2. Troponin elevation, most likely non-thrombotic troponin leak. Patient denies any chest pain. Twelve-lead EKG with no acute ischemic changes. No further testing recommended by cardiology at this time 3. Essential hypertension: Blood pressure not well controlled. Norvasc increased to 5 mg twice daily. Hydralazine 25 mg 3 times a day 4. Stage IIIB chronic kidney disease, creatinine around baseline 5. Peripheral vascular occlusive disease status post stent placement on Plavix Patient will be discharged home in a stable condition. For further details about this hospitalization please refer to the electronic chart. Patient Condition at Discharge: Fair Plan - Discharge Summary Discharge Rx Participant: Yes New Discharge Prescriptions: New hydrALAZINE HCL [Apresoline] 25 mg PO TID #90 tab amLODIPine [Norvasc] 5 mg PO BID #60 tab Continue Atorvastatin [Lipitor] 80 mg PO HS Clopidogrel Bisulfate [Clopidogrel] 75 mg PO DAILY Donepezil HCl [Aricept] 10 mg PO HS Multivitamins, Thera [Multivitamin (formulary)] 1 tab PO HS Sodium Bicarbonate Tab 650 mg PO DAILY Cholecalciferol [Vitamin D3 (25 Mcg = 1000 Iu)] 1,000 unit PO BID Aspirin 325 mg PO HS Discontinued amLODIPine [Norvasc] 5 mg PO DAILY Discharge Medication List Atorvastatin [Lipitor] 80 mg PO HS 01/31/15 [History] Clopidogrel Bisulfate [Clopidogrel] 75 mg PO DAILY 01/31/15 [History] Donepezil HCl [Aricept] 10 mg PO HS 09/17/15 [History] Aspirin 325 mg PO HS 10/30/19 [History] Cholecalciferol [Vitamin D3 (25 Mcg = 1000 Iu)] 1,000 unit PO BID 10/30/19 [History] Multivitamins, Thera [Multivitamin (formulary)] 1 tab PO HS 10/30/19 [History] Sodium Bicarbonate Tab 650 mg PO DAILY 10/30/19 [History] amLODIPine [Norvasc] 5 mg PO BID #60 tab 11/02/19 [Rx] hydrALAZINE HCL [Apresoline] 25 mg PO TID #90 tab 11/02/19 [Rx] Follow up Appointment(s)/Referral(s): Paxton Grant MD [STAFF PHYSICIAN] - 1 Week (Follow-up in the device clinic in 5 days Follow-up with Dr. Orona/Josey Mitchell in 2 weeks) Sandra Ivey MD [Primary Care Provider] - 1-2 days Activity/Diet/Wound Care/Special Instructions: Keep incision dry for 5 days until suture removal in the device clinic Discharge Disposition: HOME SELF-CARE
--- NOTE | 2019-11-02 14:32 | P.PN ---
Subjective Progress Note Date: 11/02/19 Patient feels fine, offers no new complaints. No syncopal spells, no TIA. Patient's was also present. Objective - Vital Signs Vital signs: Vital Signs Temp 98.3 F 11/02/19 11:56 Pulse 71 11/02/19 11:56 Resp 18 11/02/19 11:56 BP 149/67 11/02/19 11:56 Pulse Ox 97 11/02/19 11:56 Intake & Output 11/01/19 11/02/19 11/02/19 18:59 06:59 18:59 Intake Total 880 240 476 Output Total 1 Balance 880 239 476 Intake: IV 200 Intake, IV Titration 560 Amount Sodium Chloride 0.9% 1, 560 000 ml @ 80 mls/hr IV . [id number] NIALL Rx#:[id number] Oral 120 240 476 Output: Urine 1 Other: Voiding Method Toilet Toilet # Voids 2 3 1 - Exam Unchanged. Patient very pleasant, awake. - Labs CBC & Chem 7: 11/01/19 08:28 11/01/19 08:28 Assessment and Plan Assessment: * 84-year-old male admitted with syncopal spell. Likely vasovagal. Rule out arrhythmia. Seizure very unlikely. * Mildly elevated cardiac enzymes. 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 * Dementia, currently on donepezil. Plan: * Patient underwent carotid Doppler, which revealed > 70% stenosis right ICA. This has progressed as compared to the previous study from November 2018. Left ICA has no significant stenosis. Patient's states that they will follow-up with Dr. Grant, who could monitor his right ICA stenosis versus possible right ICA stenting. * Cardiology is also on the case. Patient on telemetry monitoring, showing sinus rhythm. * Patient and his admits that he does not drink enough fluids. He probably was dehydrated. Patient advised to stay well hydrated. * Patient on dual antiplatelet medication and high-dose statins Lipitor 80 mg.
[2019-11-02] MEDS ORDERED: hydrALAZINE HCL 25 MG TAB PO SCH (16:00)
[2019-11-02 17:29] VITALS: BP 139/63; PULSE 77; TEMP 97.6
== END 2019-11-02 17:20 | disposition home or self-care (01) ==
LOC: EC 10:44 → 3SCARD 14:05
PROVIDERS: ADMIT Internal Medicine; ATTEND Internal Medicine
DX: R55 Syncope and collapse (principal); E78.5 Hyperlipidemia, unspecified; E86.0 Dehydration; F03.90 Unspecified dementia, unspecified severity, without behavioral disturbance, psychotic disturbance, mood disturbance, and anxiety; I12.9 Hypertensive chronic kidney disease with stage 1 through stage 4 chronic kidney disease, or unspecified chronic kidney disease; I35.8 Other nonrheumatic aortic valve disorders; I45.10 Unspecified right bundle-branch block; I65.21 Occlusion and stenosis of right carotid artery; N18.3 Chronic kidney disease, stage 3 (moderate); Z77.090 Contact with and (suspected) exposure to asbestos; Z79.02 Long term (current) use of antithrombotics/antiplatelets; Z03.818 Encounter for observation for suspected exposure to other biological agents ruled out; Z79.82 Long term (current) use of aspirin; Z79.899 Other long term (current) drug therapy; Z85.828 Personal history of other malignant neoplasm of skin; Z96.642 Presence of left artificial hip joint; R74.8 Abnormal levels of other serum enzymes; I73.9 Peripheral vascular disease, unspecified; Z82.49 Family history of ischemic heart disease and other diseases of the circulatory system
CPT/HCPCS: 96361 ×3; 96360; 99285; 36415; 93005; 33285; 80053; 80048; 82550; 83735; 84484; 85025 ×2; 85610; 85730; 81003; 71046; 93880; G0378 ×4; C8929; C1764; U0003; J2250; J0690; J2001; Q9950; 93306

== ENCOUNTER 2019-11-03 10:01 | Emergency (ER) | payer MEDICARE ==
[2019-11-03] MEDS ORDERED: TOPICAL SKIN ADHESIVE 1 EACH AMP TOPICAL ONE ×2 (10:32→10:56)
--- NOTE | 2019-11-03 10:32 | ED ---
General Adult HPI - General Chief complaint: Recheck/Abnormal Lab/Rx Stated complaint: Post Op Bleeding Time Seen by Provider: 11/03/19 10:11 Source: patient, family, RN notes reviewed Mode of arrival: ambulatory Limitations: no limitations - History of Present Illness Initial comments: Patient is a pleasant 84-year-old male presenting to the emergency department for postoperative bleeding. Patient had a loop recorder placed 2 days ago. We'll order was placed secondary to syncope episode on Thursday. Patient also had a syncope episode one year ago. Patient did have some oozing following placement of the loop recorder and was kept overnight. Patient had continued bruising and glue was placed over the site. The upper area was not following drying after a sponge bath and has continued to ooze again since that time. Patient states otherwise the area is not bothering him. No pain. - Related Data Home Medications Medication Instructions Recorded Confirmed Atorvastatin [Lipitor] 80 mg PO HS 01/31/15 11/03/19 Clopidogrel Bisulfate [Clopidogrel] 75 mg PO DAILY 01/31/15 11/03/19 Donepezil HCl [Aricept] 10 mg PO HS 09/17/15 11/03/19 Aspirin 325 mg PO HS 10/30/19 11/03/19 Cholecalciferol [Vitamin D3 (25 1,000 unit PO BID 10/30/19 11/03/19 Mcg = 1000 Iu)] Multivitamins, Thera [Multivitamin 1 tab PO HS 10/30/19 11/03/19 (formulary)] Sodium Bicarbonate Tab 650 mg PO DAILY 10/30/19 11/03/19 Previous Rx's Medication Instructions Recorded amLODIPine [Norvasc] 5 mg PO BID #60 tab 11/02/19 hydrALAZINE HCL [Apresoline] 25 mg PO TID #90 tab 11/02/19 Allergies Allergy/AdvReac Type Severity Reaction Status Date / Time No Known Allergies Allergy Verified 11/03/19 10:46 Review of Systems ROS Statement: Those systems with pertinent positive or pertinent negative responses have been documented in the HPI. ROS Other: All systems not noted in ROS Statement are negative. Constitutional: Denies: fever Eyes: Denies: eye pain ENT: Denies: ear pain Respiratory: Denies: cough, dyspnea Cardiovascular: Denies: chest pain, palpitations Endocrine: Denies: fatigue Gastrointestinal: Denies: abdominal pain Genitourinary: Denies: dysuria Musculoskeletal: Denies: back pain Skin: Reports: as per HPI. Denies: rash Neurological: Denies: weakness Past Medical History Past Medical History: Cancer, Dementia, Hyperlipidemia, Hypertension, Memory Impairment, Osteoarthritis (OA), Prostate Disorder, Vascular Disorder Additional Past Medical History / Comment(s): Hx prostate and skin cancer; PAST ASBESTOS EXPOSURE. C/O Pain in Rt leg w/ walking. History of Any Multi-Drug Resistant Organisms: None Reported Past Surgical History: Appendectomy, Joint Replacement Additional Past Surgical History / Comment(s): 02/12/15 Total L hip arthroplasty. Exc skin CA face, mass removed from base of spine, vascular surgery lt leg, jabari cataracts, 09-24-15 TOTAL RT HIP, hemorrhoidectomy Past Anesthesia/Blood Transfusion Reactions: No Reported Reaction Past Psychological History: No Psychological Hx Reported Smoking Status: Never smoker Past Alcohol Use History: Occasional Past Drug Use History: None Reported - Past Family History Brother(s) Family Medical History: Deep Vein Thrombosis (DVT) Mother Family Medical History: No Reported History Father Additional Family Medical History / Comment(s): AT AGE 50 General Exam Limitations: no limitations General appearance: alert, in no apparent distress Head exam: Present: normocephalic Eye exam: Present: normal appearance Neck exam: Present: normal inspection Respiratory exam: Present: normal lung sounds bilaterally Cardiovascular Exam: Present: regular rate, normal rhythm GI/Abdominal exam: Present: soft. Absent: tenderness Extremities exam: Present: normal inspection Neurological exam: Present: alert Psychiatric exam: Present: normal affect, normal mood Skin exam: Present: other (Patient has loop recorder in the left mid upper chest. There are 2 sutures present with oozing from the lateral suture.) Course Vital Signs 11/03/19 11/03/19 10:04 11:36 Temperature 97.6 F 98.3 F Pulse Rate 79 73 Respiratory 18 16 Rate Blood Pressure 138/69 152/65 O2 Sat by Pulse 99 97 Oximetry - Reevaluation(s) Reevaluation #1: 11/03/19 12:57 Patient reevaluated and hemostasis remains. Bandages were replaced and patient sent for follow-up. Procedures - Procedures Initial comment: Time out performed. Area was cleansed with Betadine. 2 sutures removed from anterior chest without Complication. There is mild oozing still. Dermabond was placed and hemostasis was obtained. No complications. Medical Decision Making - Medical Decision Making Case was discussed with Dr. Friedman who is familiar with this patient. He suspects a small vessel lose from the suture site. He requests removing sutures and placing Dermabond. Disposition Clinical Impression: Postoperative bleeding from incision Disposition: HOME SELF-CARE Condition: Stable Instructions (If sedation given, give patient instructions): Postoperative Bleeding (ED), Skin Adhesive Care (ED) Additional Instructions: Please follow-up with Dr. Rainey as directed. Please follow-up with primary care physician in the next day or 2 for recheck. Return for bleeding, worsening or changing symptoms or other concerns. Is patient prescribed a controlled substance at d/c from ED?: No Referrals: Sandra Ivey MD [Primary Care Provider] - 1-2 days Chapito Friedman MD [STAFF PHYSICIAN] - 1-2 days Time of Disposition: 13:00
[2019-11-03 11:38] VITALS: RESP 16
[2019-11-03 13:38] VITALS: BP 147/69; PULSE 82; TEMP 98.1
--- NOTE | 2019-11-04 08:05 | CDI ---
Dear Bandar Sanchez , DO Please provide loop recorder incision site repair length Thank you, Chloe Crawley Qa Analyst If you have any questions, please contact [employer] at [phone] [facility]
== END 2019-11-03 13:38 | disposition home or self-care (01) ==
LOC: EC 10:01
DX: T82.838A Hemorrhage due to vascular prosthetic devices, implants and grafts, initial encounter (principal); F03.90 Unspecified dementia, unspecified severity, without behavioral disturbance, psychotic disturbance, mood disturbance, and anxiety; E78.5 Hyperlipidemia, unspecified; M19.90 Unspecified osteoarthritis, unspecified site; Z96.642 Presence of left artificial hip joint; Z85.46 Personal history of malignant neoplasm of prostate; Z85.828 Personal history of other malignant neoplasm of skin; Z79.02 Long term (current) use of antithrombotics/antiplatelets; Z79.82 Long term (current) use of aspirin; Z79.899 Other long term (current) drug therapy
CPT/HCPCS: 12001; 99283

== ENCOUNTER → 2019-11-18 | Outpatient (CLI) | payer MEDICARE ==
--- NOTE | 2019-11-18 13:04 | US ---
EXAMINATION TYPE: US kidneys/renal and bladder DATE OF EXAM: 11/18/2019 COMPARISON: US 09/28/19 CLINICAL HISTORY: N18.4 CKD. EXAM MEASUREMENTS: Right Kidney: 6.9 x 3.9 x 3.7 cm Left Kidney: 9.8 x 4.8 x 4.4 cm Post Void Residual Volume: 0 mL Right Kidney: atrophied kidney, no hydronephrosis or nephrolithiasis seen Left Kidney: atrophied kidney, no hydronephrosis or nephrolithiasis seen Bladder: not fully distended Bilateral Jets seen: No Normal Post Void Residual: not fully distended and nondiagnostic. IMPRESSION: Left kidney is atrophied. There is findings compatible with chronic medical renal disease with no hyd ronephrosis or nephrolithiasis.
[2019-11-18 13:45] LABS: HCT 30.4 % (39.0-53.0); HGB 9.6 gm/dL (13.0-17.5); MCHC 31.4 g/dL (31.0-37.0); MCV 98.5 fL (80.0-100.0); Mean Platelet Volume 8.8; Platelet Count 236 k/uL (150-450); RBC 3.09 m/uL (4.30-5.90); RDW 13.2 % (11.5-15.5); WBC 7.9 k/uL (3.8-10.6)
[2019-11-18 13:52] LABS: Appearance,Urine Clear (Clear); Bilirubin,Urine Negative (Negative); Blood,Urine Negative (Negative); Color,Urine Yellow; Glucose,Urine (UA) Negative (Negative); Ketones,Urine Negative (Negative); Leukocyte Esterase,Urine Negative (Negative); Nitrite,Urine Negative (Negative); PH, Urine 5.5 (5.0-8.0); Protein,Urine Trace (Negative); Specific Gravity,Urine 1.013 (1.001-1.035); Urobilinogen,Urine <2.0 mg/dL (<2.0)
[2019-11-18 14:00] LABS: Albumin 3.9 g/dL (3.5-5.0); Calcium 9.1 mg/dL (8.4-10.2); Magnesium 1.8 mg/dL (1.6-2.3); Total Bilirubin 0.3 mg/dL (0.2-1.3); Total Protein 6.1 g/dL (6.3-8.2); Uric Acid 5.8 mg/dL (3.5-8.5)
[2019-11-18 14:07] LABS: Creatinine,Urine Random 98.6 mg/dL
[2019-11-18 21:20] LABS: % Iron Saturation 16.05 (15.00-50.00)
[2019-11-18 21:29] LABS: Ferritin 94.3 ng/mL (22.0-322.0)
== END | disposition home or self-care (01) ==
LOC: RADUSWWP 12:31
PROVIDERS: ATTEND Internal Medicine
DX: N26.1 Atrophy of kidney (terminal) (principal); N18.4 Chronic kidney disease, stage 4 (severe); N39.0 Urinary tract infection, site not specified; N25.81 Secondary hyperparathyroidism of renal origin; E55.9 Vitamin D deficiency, unspecified; M10.9 Gout, unspecified; R80.9 Proteinuria, unspecified; D63.1 Anemia in chronic kidney disease
CPT/HCPCS: 76770; 80053; 81003; 82306; 82570; 82728; 83540; 83550; 83735; 83970; 84100; 84156; 84550; 85027

== ENCOUNTER 2019-11-20 19:30 | Emergency (ER) | payer MEDICARE ==
--- NOTE | 2019-11-20 19:49 | ED ---
General Adult HPI - General Chief complaint: Abdominal Pain Stated complaint: Abdominal Pain Time Seen by Provider: 11/20/19 19:37 Source: patient, family Mode of arrival: ambulatory Limitations: altered mental status - History of Present Illness Initial comments: Dictation was produced using [employer] dictation software. please excuse any grammatical, word or spelling errors. This patient was cared for during a federal and state declared state of emergency secondary to Covid 19 Chief Complaint: 84-year-old male with multiple comorbidities presents with abdominal pain. History of Present Illness: 84-year-old male he has multiple comorbidities. Patient has history of dementia hypertension memory impairment vascular disease. is at bedside able to provide HPI. Quite a was at bedside reports that sometime last night patient had been complaining of epigastric abdominal pain. reports that his pain was so severe that began crying. Patient is unreliable historian at this time due to his history of dementia. Patient denies any nausea vomiting. He has had poor appetite. He does have history of kidney disease. He recent implantation of a loop recorder. The ROS documented in this emergency department record has been reviewed and confirmed by me. Those systems with pertinent positive or negative responses have been documented in the HPI. All other systems are other negative and/or noncontributory. PHYSICAL EXAM: General Impression: Alert and oriented x3, not in acute distress HEENT: Normocephalic atraumatic, extra-ocular movements intact, pupils equal and reactive to light bilaterally, mucous membranes moist. Cardiovascular: Heart regular rate and rhythm Chest: Able to complete full sentences, no retractions, no tachypnea Abdomen: abdomen soft, very mild tenderness to the epigastric area, non- distended, no organomegaly Musculoskeletal: Pulses present and equal in all extremities, no peripheral edema Motor: no focal deficits noted Neurological: CN II-XII grossly intact, no focal motor or sensory deficits noted Skin: Intact with no visualized rashes Psych: Normal affect and mood ED course: 84-year-old male presents with abdominal pain he has multiple comorbidities. Vital signs upon arrival are within acceptable limits. Laboratory evaluation obtained. Hemoglobin is slightly below patient's normal period is unclear what this anemia is from. Metabolic panel is unremarkable. He does have elevation of his renal markers however that seems to be baseline. Rest of labs are unremarkable. Urinalysis is negative. CT of the abdomen and pelvis was obtained showing mild inflammation of the jejunal wall. Patient is well-appearing at bedside. He states he doesn't have any pain currently. Discussed with that patient is follow-up with his private care physician s ometime this for hemoglobin recheck and to workup his abdominal pain on an outpatient basis. Return parameters discussed. Patient and are agreeable with disposition plan. EKG interpretation: Ventricular rate 99, normal sinus rhythm,. Interval 156, QRS 156, QTC 529, right bundle branch block. No ME prolongation,, no ST or T- wave changes noted. EKG compared to 12/31/2019 showing no changes. QT is prolonged - Related Data Home Medications Medication Instructions Recorded Confirmed Atorvastatin [Lipitor] 80 mg PO HS 01/31/15 11/03/19 Clopidogrel Bisulfate [Clopidogrel] 75 mg PO DAILY 01/31/15 11/03/19 Donepezil HCl [Aricept] 10 mg PO HS 09/17/15 11/03/19 Aspirin 325 mg PO HS 10/30/19 11/03/19 Cholecalciferol [Vitamin D3 (25 1,000 unit PO BID 10/30/19 11/03/19 Mcg = 1000 Iu)] Multivitamins, Thera [Multivitamin 1 tab PO HS 10/30/19 11/03/19 (formulary)] Sodium Bicarbonate Tab 650 mg PO DAILY 10/30/19 11/03/19 Previous Rx's Medication Instructions Recorded amLODIPine [Norvasc] 5 mg PO BID #60 tab 11/02/19 hydrALAZINE HCL [Apresoline] 25 mg PO TID #90 tab 11/02/19 Allergies Allergy/AdvReac Type Severity Reaction Status Date / Time No Known Allergies Allergy Verified 11/20/19 19:32 Review of Systems ROS Statement: Those systems with pertinent positive or pertinent negative responses have been documented in the HPI. ROS Other: All systems not noted in ROS Statement are negative. Past Medical History Past Medical History: Cancer, Dementia, Hyperlipidemia, Hypertension, Memory Impairment, Osteoarthritis (OA), Prostate Disorder, Vascular Disorder Additional Past Medical History / Comment(s): Hx prostate and skin cancer; PAST ASBESTOS EXPOSURE. C/O Pain in Rt leg w/ walking. History of Any Multi-Drug Resistant Organisms: None Reported Past Surgical History: Appendectomy, Joint Replacement Additional Past Surgical History / Comment(s): 02/12/15 Total L hip arthroplasty. Exc skin CA face, mass removed from base of spine, vascular surgery lt leg, jabari cataracts, 6-13-16 TOTAL RT HIP, hemorrhoidectomy Past Anesthesia/Blood Transfusion Reactions: No Reported Reaction Past Psychological History: No Psychological Hx Reported Smoking Status: Never smoker Past Alcohol Use History: Occasional Past Drug Use History: None Reported - Past Family History Brother(s) Family Medical History: Deep Vein Thrombosis (DVT) Mother Family Medical History: No Reported History Father Additional Family Medical History / Comment(s): AT AGE 50 General Exam Limitations: altered mental status Course Vital Signs 11/20/19 11/20/19 11/20/19 19:33 21:30 22:04 Temperature 99.0 F Pulse Rate 85 74 83 Respiratory 16 18 18 Rate Blood Pressure 141/63 171/71 168/68 O2 Sat by Pulse 98 97 97 Oximetry Medical Decision Making - Lab Data Result diagrams: 11/20/19 20:09 11/20/19 20:09 Lab Results 11/20/19 11/20/19 11/20/19 Range/Units 20:09 20:09 21:22 WBC 5.6 (3.8-10.6) k/uL RBC 2.66 L (4.30-5.90) m/uL Hgb 8.3 L (13.0-17.5) gm/dL Hct 25.6 L (39.0-53.0) % MCV 96.4 (80.0-100.0) fL MCH 31.2 (25.0-35.0) pg MCHC 32.3 (31.0-37.0) g/dL RDW 13.6 (11.5-15.5) % Plt Count 233 (150-450) k/uL Neutrophils % 78 % Lymphocytes % 11 % Monocytes % 5 % Eosinophils % 3 % Basophils % 1 % Neutrophils # 4.4 (1.3-7.7) k/uL Lymphocytes # 0.6 L (1.0-4.8) k/uL Monocytes # 0.3 (0-1.0) k/uL Eosinophils # 0.2 (0-0.7) k/uL Basophils # 0.0 (0-0.2) k/uL Sodium 135 L (137-145) mmol/L Potassium 4.0 (3.5-5.1) mmol/L Chloride 106 (98-107) mmol/L Carbon Dioxide 20 L (22-30) mmol/L Anion Gap 9 mmol/L BUN 38 H (9-20) mg/dL Creatinine 1.79 H (0.66-1.25) mg/dL Est GFR (CKD-EPI)AfAm 39 (>60 ml/min/1.73 sqM) Est GFR (CKD-EPI)NonAf 34 (>60 ml/min/1.73 sqM) Glucose 116 H (74-99) mg/dL Calcium 9.1 (8.4-10.2) mg/dL Total Bilirubin 0.5 (0.2-1.3) mg/dL AST 39 (17-59) U/L ALT 19 (4-49) U/L Alkaline Phosphatase 74 (38-126) U/L Total Protein 5.9 L (6.3-8.2) g/dL Albumin 3.7 (3.5-5.0) g/dL Lipase 275 (23-300) U/L Urine Color Light Yellow Urine Appearance Clear (Clear) Urine pH 5.5 (5.0-8.0) Ur Specific [place] 1.012 (1.001-1.035) Urine Protein Trace H (Negative) Urine Glucose (UA) Negative (Negative) Urine Ketones Negative (Negative) Urine Blood Negative (Negative) Urine Nitrite Negative (Negative) Urine Bilirubin Negative (Negative) Urine Urobilinogen <2.0 (<2.0) mg/dL Ur Leukocyte Esterase Negative (Negative) Disposition Clinical Impression: Abdominal pain Disposition: HOME SELF-CARE Condition: Good Instructions (If sedation given, give patient instructions): Abdominal Pain (ED) Additional Instructions: 1. Your hemoglobin was measured to be 8.3. This is slightly below your past hemoglobin levels checked over the course of this year. Please follow-up with her primary care physician for reevaluation of hemoglobin levels. 2. Your CT of the abdomen and pelvis revealed jejunal inflammation that was very mild. This is likely the source of your abdominal pain. Symptoms are likely going to resolve over some time however they worse please seek medical attention with her primary care physician or return to the emergency department. 3. Youre given Zofran and Tylenol No. 3 starter packs to be taken whenever he feel nauseated or R having abdominal pain. 4. Please seek immediate medical attention if he develop worsening abdominal pain that's uncontrolled with medications, fevers. Is patient prescribed a controlled substance at d/c from ED?: No Referrals: Sandra Ivey MD [Primary Care Provider] - 1-2 days Time of Disposition: 22:32
[2019-11-20 20:23] LABS: Basophils % (A) 1 %; Eosinophils # (A) 0.2 k/uL (0-0.7); Eosinophils % (A) 3 %; HCT 25.6 % (39.0-53.0); HGB 8.3 gm/dL (13.0-17.5); Lymphocytes # (A) 0.6 k/uL (1.0-4.8); Lymphocytes % (A) 11 %; MCH 31.2 pg (25.0-35.0); MCHC 32.3 g/dL (31.0-37.0); MCV 96.4 fL (80.0-100.0); Mean Platelet Volume 8.3; Monocytes # (A) 0.3 k/uL (0-1.0); Monocytes % (A) 5 %; Neutrophils # (A) 4.4 k/uL (1.3-7.7); Neutrophils % (A) 78 %; Platelet Count 233 k/uL (150-450); RBC 2.66 m/uL (4.30-5.90); RDW 13.6 % (11.5-15.5); WBC 5.6 k/uL (3.8-10.6)
[2019-11-20 20:32] LABS: Albumin 3.7 g/dL (3.5-5.0); Calcium 9.1 mg/dL (8.4-10.2); Total Bilirubin 0.5 mg/dL (0.2-1.3); Total Protein 5.9 g/dL (6.3-8.2)
[2019-11-20 21:55] LABS: Appearance,Urine Clear (Clear); Bilirubin,Urine Negative (Negative); Blood,Urine Negative (Negative); Color,Urine Light Yellow; Glucose,Urine (UA) Negative (Negative); Ketones,Urine Negative (Negative); Leukocyte Esterase,Urine Negative (Negative); Nitrite,Urine Negative (Negative); PH, Urine 5.5 (5.0-8.0); Protein,Urine Trace (Negative); Specific Gravity,Urine 1.012 (1.001-1.035); Urobilinogen,Urine <2.0 mg/dL (<2.0)
[2019-11-20] MEDS ORDERED: MAG HYDROX/AL HYDROX/SIMETH 30 ML, HYOSCYAMINE ELIXIR 10 ML, LIDOCAINE VISCOUS 2% 10 ML PO STA ×3 (21:58)
[2019-11-20] MEDS ORDERED: PANTOPRAZOLE 40 MG/10 ML VIAL IVP ONE (22:11)
--- NOTE | 2019-11-20 22:18 | CT ---
EXAMINATION TYPE: CT abdomen pelvis wo con DATE OF EXAM: 11/20/2019 COMPARISON: None HISTORY: Pt c/o abdominal pain. PT recent sx for loop recorder CT DLP: 524.3 mGycm Automated exposure control for dose reduction was used. Images were obtained from the diaphragm to the floor the pelvis with no contrast. FINDINGS: There are mild bilateral pleural effusions. Heart size is normal. There is no pericardial effusion. T here is mild atelectasis at the left posterior lung base. Liver and gallbladder appear normal. Bile d ucts are not dilated. Spleen is intact. There is no evidence of pancreatic mass. Stomach is intact. T here is atherosclerotic calcification in the abdominal aorta and its branches. There is some mild wal l thickening of loops of proximal jejunum. These measure up to 10 mm. There is no adrenal mass. Kidneys have normal size. There is no hydronephrosis. Ureters are not dilat ed. There is no retroperitoneal adenopathy. Bladder distends smoothly. There is metal artifact obscur es detail in the pelvis. There is no sign of a pelvic mass. There is presacral edema. There are numer ous diverticula in the sigmoid colon. Cecum is high in the abdomen. Appendix is not definitely seen. There is no sign of thickened appendix. There is no mesenteric edema. There is no ascites or free air . There is no evidence of a bowel obstruction. There is mild lumbar dextroscoliosis. There is spondyl otic changes in the lumbar spine with disc space narrowing. There is no compression fracture. There i s some lateral recess stenosis in spinal stenosis at L3-4. I see no bony destructive process. The bon y pelvis is intact. IMPRESSION: Mild jejunal wall thickening could be some nonspecific gastroenteritis. There is presacral edema that measures up to 12 mm in thickness. There is sigmoid diverticulosis with out diverticulitis. Mild L3-4 spinal stenosis. Bilateral mild pleural effusions. Atherosclerotic vascular disease.
[2019-11-20] MEDS ORDERED: ACET/COD 300 MG/30 MG STARTER PACK 6 TAB BTL PO STA (22:32)
[2019-11-20] MEDS ORDERED: ONDANSETRON 4 MG ODT STARTER PACK 2 TAB BTL PO STA (22:32)
[2019-11-20 22:57] VITALS: BP 133/59; PULSE 84; RESP 16; TEMP 98.5
== END 2019-11-20 23:00 | disposition home or self-care (01) ==
LOC: EC 19:30
DX: R10.9 Unspecified abdominal pain (principal); E78.5 Hyperlipidemia, unspecified; F03.90 Unspecified dementia, unspecified severity, without behavioral disturbance, psychotic disturbance, mood disturbance, and anxiety; I10 Essential (primary) hypertension; M19.90 Unspecified osteoarthritis, unspecified site; Z79.02 Long term (current) use of antithrombotics/antiplatelets; Z79.82 Long term (current) use of aspirin; Z79.899 Other long term (current) drug therapy; Z85.828 Personal history of other malignant neoplasm of skin; Z96.652 Presence of left artificial knee joint
CPT/HCPCS: 36415; 93005; 80053; 83690; 85025; 81003; 74176; 99284; 96374; S0119; C9113

== ENCOUNTER 2019-11-28 13:32 | Inpatient (IN) | payer MEDICARE ==
--- NOTE | 2019-11-28 14:32 | ED ---
General Adult HPI - General Chief complaint: Recheck/Abnormal Lab/Rx Stated complaint: Weakness, Abn Labs Time Seen by Provider: 11/28/19 14:03 Source: patient, EMS, RN notes reviewed Mode of arrival: EMS Limitations: no limitations - History of Present Illness Initial comments: Patient is an 84-year-old male with a past medical history of stage IV kidney disease, hyperlipidemia, hypertension, dementia, prostate and skin cancer who presents to the emergency room for a chief complaint of anemia. reports the patient has had a recent new finding of anemia. He has a history of stage IV kidney disease and was scheduled to see Dr. Dykes today for this however he started to feel worse today and had a near syncopal episode. states that she was trying to get him to his appointment however he was not well enough to do so. Patient has a history of syncopal episode and had a loop recorder placed. Near syncope at that time was thought to be vasovagal related to dehydration. Orthostatic blood pressures were negative. reports patient has not been eating or drinking much for about a week. States he takes about 1 by and just does not feel well. Patient does take Plavix. Patient denies any dark or red stools. Patient has no other complaints at this time including shortness of breath, chest pain, abdominal pain, nausea or vomiting, headache, or visual changes. - Related Data Home Medications Medication Instructions Recorded Confirmed Atorvastatin [Lipitor] 80 mg PO HS 01/31/15 11/03/19 Clopidogrel Bisulfate [Clopidogrel] 75 mg PO DAILY 01/31/15 11/03/19 Donepezil HCl [Aricept] 10 mg PO HS 09/17/15 11/03/19 Aspirin 325 mg PO HS 10/30/19 11/03/19 Cholecalciferol [Vitamin D3 (25 1,000 unit PO BID 10/30/19 11/03/19 Mcg = 1000 Iu)] Multivitamins, Thera [Multivitamin 1 tab PO HS 10/30/19 11/03/19 (formulary)] Sodium Bicarbonate Tab 650 mg PO DAILY 10/30/19 11/03/19 Previous Rx's Medication Instructions Recorded amLODIPine [Norvasc] 5 mg PO BID #60 tab 11/02/19 hydrALAZINE HCL [Apresoline] 25 mg PO TID #90 tab 11/02/19 Allergies Allergy/AdvReac Type Severity Reaction Status Date / Time No Known Allergies Allergy Verified 11/20/19 19:32 Review of Systems ROS Statement: Those systems with pertinent positive or pertinent negative responses have been documented in the HPI. ROS Other: All systems not noted in ROS Statement are negative. Past Medical History Past Medical History: Cancer, Dementia, Hyperlipidemia, Hypertension, Memory Impairment, Osteoarthritis (OA), Prostate Disorder, Vascular Disorder Additional Past Medical History / Comment(s): Hx prostate and skin cancer; PAST ASBESTOS EXPOSURE. C/O Pain in Rt leg w/ walking. History of Any Multi-Drug Resistant Organisms: None Reported Past Surgical History: Appendectomy, Joint Replacement Additional Past Surgical History / Comment(s): 02/12/15 Total L hip arthroplasty. Exc skin CA face, mass removed from base of spine, vascular surgery lt leg, jabari cataracts, --16 TOTAL RT HIP, hemorrhoidectomy Past Anesthesia/Blood Transfusion Reactions: No Reported Reaction Past Psychological History: No Psychological Hx Reported Smoking Status: Never smoker Past Alcohol Use History: Occasional Past Drug Use History: None Reported - Past Family History Brother(s) Family Medical History: Deep Vein Thrombosis (DVT) Mother Family Medical History: No Reported History Father Additional Family Medical History / Comment(s): AT AGE 50 General Exam Limitations: no limitations General appearance: alert, in no apparent distress Head exam: Present: atraumatic, normocephalic, normal inspection Eye exam: Present: normal appearance, PERRL, EOMI. Absent: scleral icterus, conjunctival injection, periorbital swelling ENT exam: Present: normal exam, mucous membranes moist Neck exam: Present: normal inspection, full ROM. Absent: tenderness, meningismus, lymphadenopathy Respiratory exam: Present: normal lung sounds bilaterally. Absent: respiratory distress, wheezes, rales, rhonchi, stridor Cardiovascular Exam: Present: regular rate, normal rhythm, normal heart sounds. Absent: systolic murmur, diastolic murmur, rubs, gallop, clicks GI/Abdominal exam: Present: soft, normal bowel sounds. Absent: distended, tenderness, guarding, rebound, rigid Rectal exam: Present: normal rectal tone, other (Nate CABEZAS present on exam) Neurological exam: Present: alert Course Vital Signs 11/28/19 11/28/19 11/28/19 13:36 13:44 13:46 Temperature 97.6 F Pulse Rate 77 76 Pulse Rate [ 84 [employer] ] Respiratory 16 16 16 Rate Blood Pressure 161/70 O2 Sat by Pulse 97 99 Oximetry 11/28/19 15:00 Temperature Pulse Rate 82 Pulse Rate [ [employer] ] Respiratory 16 Rate Blood Pressure 153/67 O2 Sat by Pulse 98 Oximetry EKG Findings - EKG Comments: EKG Findings:: normal sinus rhythm, right bundle branch block, ventricular rate 76, SD interval 148, QTc 504 Medical Decision Making - Medical Decision Making Vitals are stable. CBC does reveal hemoglobin of 9.0. CMP reflective of CK D. Troponin minimally elevated likely secondary to CKD as well. Stool occult blood is positive. This was evident on exam as patient was melanotic. Patient will be admitted with GI consultation on board. - Lab Data Result diagrams: 11/28/19 14:45 11/28/19 14:45 Lab Results 11/28/19 11/28/19 11/28/19 Range/Units 14:45 14:45 14:45 WBC 10.3 (3.8-10.6) k/uL RBC 2.93 L (4.30-5.90) m/uL Hgb 9.0 L (13.0-17.5) gm/dL Hct 28.7 L (39.0-53.0) % MCV 98.1 (80.0-100.0) fL MCH 30.6 (25.0-35.0) pg MCHC 31.2 (31.0-37.0) g/dL RDW 13.3 (11.5-15.5) % Plt Count 305 (150-450) k/uL Neutrophils % 90 % Lymphocytes % 4 % Monocytes % 4 % Eosinophils % 1 % Basophils % 1 % Neutrophils # 9.3 H (1.3-7.7) k/uL Lymphocytes # 0.4 L (1.0-4.8) k/uL Monocytes # 0.4 (0-1.0) k/uL Eosinophils # 0.1 (0-0.7) k/uL Basophils # 0.1 (0-0.2) k/uL PT (9.0-12.0) sec INR (<1.2) APTT (22.0-30.0) sec Sodium 134 L (137-145) mmol/L Potassium 4.5 (3.5-5.1) mmol/L Chloride 104 (98-107) mmol/L Carbon Dioxide 20 L (22-30) mmol/L Anion Gap 10 mmol/L BUN 46 H (9-20) mg/dL Creatinine 1.98 H (0.66-1.25) mg/dL Est GFR (CKD-EPI)AfAm 34 (>60 ml/min/1.73 sqM) Est GFR (CKD-EPI)NonAf 30 (>60 ml/min/1.73 sqM) Glucose 118 H (74-99) mg/dL Calcium 9.3 (8.4-10.2) mg/dL Magnesium 2.1 (1.6-2.3) mg/dL Total Bilirubin 0.6 (0.2-1.3) mg/dL AST 37 (17-59) U/L ALT 17 (4-49) U/L Alkaline Phosphatase 93 (38-126) U/L Troponin I (0.000-0.034) ng/mL Total Protein 6.4 (6.3-8.2) g/dL Albumin 4.1 (3.5-5.0) g/dL Stool Occult Blood (Negative) Blood Type AB Negative Blood Type Recheck AB Neg Bld Type Recheck Status No Antibody Screen NEGATIVE Spec Expiration Date 12/01/2019 - 234411/28/19 11/28/19 11/28/19 Range/Units 14:45 14:45 14:45 WBC (3.8-10.6) k/uL RBC (4.30-5.90) m/uL Hgb (13.0-17.5) gm/dL Hct (39.0-53.0) % MCV (80.0-100.0) fL MCH (25.0-35.0) pg MCHC (31.0-37.0) g/dL RDW (11.5-15.5) % Plt Count (150-450) k/uL Neutrophils % % Lymphocytes % % Monocytes % % Eosinophils % % Basophils % % Neutrophils # (1.3-7.7) k/uL Lymphocytes # (1.0-4.8) k/uL Monocytes # (0-1.0) k/uL Eosinophils # (0-0.7) k/uL Basophils # (0-0.2) k/uL PT 10.0 (9.0-12.0) sec INR 1.0 (<1.2) APTT 20.5 L (22.0-30.0) sec Sodium (137-145) mmol/L Potassium (3.5-5.1) mmol/L Chloride (98-107) mmol/L Carbon Dioxide (22-30) mmol/L Anion Gap mmol/L BUN (9-20) mg/dL Creatinine (0.66-1.25) mg/dL Est GFR (CKD-EPI)AfAm (>60 ml/min/1.73 sqM) Est GFR (CKD-EPI)NonAf (>60 ml/min/1.73 sqM) Glucose (74-99) mg/dL Calcium (8.4-10.2) mg/dL Magnesium (1.6-2.3) mg/dL Total Bilirubin (0.2-1.3) mg/dL AST (17-59) U/L ALT (4-49) U/L Alkaline Phosphatase (38-126) U/L Troponin I 0.087 H* (0.000-0.034) ng/mL Total Protein (6.3-8.2) g/dL Albumin (3.5-5.0) g/dL Stool Occult Blood Positive (Negative) Blood Type Blood Type Recheck Bld Type Recheck Status Antibody Screen Spec Expiration Date Disposition Clinical Impression: Melena, Anemia Disposition: ADMITTED IP TO THIS HOSP Is patient prescribed a controlled substance at d/c from ED?: No Referrals: Sandra Ivey MD [Primary Care Provider] - 1-2 days Time of Disposition: 15:54
[2019-11-28] MEDS ORDERED: PANTOPRAZOLE 40 MG/10 ML VIAL IVP STA (14:34)
[2019-11-28 15:14] LABS: Albumin 4.1 g/dL (3.5-5.0); Calcium 9.3 mg/dL (8.4-10.2); Magnesium 2.1 mg/dL (1.6-2.3); Potassium 4.5 mmol/L (3.5-5.1); Total Bilirubin 0.6 mg/dL (0.2-1.3); Total Protein 6.4 g/dL (6.3-8.2)
[2019-11-28 15:19] LABS: Basophils # (A) 0.1 k/uL (0-0.2); Basophils % (A) 1 %; Eosinophils # (A) 0.1 k/uL (0-0.7); Eosinophils % (A) 1 %; HCT 28.7 % (39.0-53.0); Lymphocytes # (A) 0.4 k/uL (1.0-4.8); Lymphocytes % (A) 4 %; MCH 30.6 pg (25.0-35.0); MCHC 31.2 g/dL (31.0-37.0); MCV 98.1 fL (80.0-100.0); Mean Platelet Volume 7.6; Monocytes # (A) 0.4 k/uL (0-1.0); Monocytes % (A) 4 %; Neutrophils # (A) 9.3 k/uL (1.3-7.7); Neutrophils % (A) 90 %; Platelet Count 305 k/uL (150-450); RBC 2.93 m/uL (4.30-5.90); RDW 13.3 % (11.5-15.5); WBC 10.3 k/uL (3.8-10.6)
[2019-11-28] MEDS ORDERED: SODIUM CHLORIDE 0.9% 500 ML 500 ML IV ONE (15:36)
[2019-11-28 15:41] LABS: Partial Thromboplastin Time 20.5 sec (22.0-30.0)
[2019-11-28] MEDS ORDERED: NALOXONE 0.4 MG/ML 1 ML VIAL IV PRN (15:42)
--- NOTE | 2019-11-28 17:20 | P.HPIM ---
History of Present Illness H&P Date: 11/28/19 Chief Complaint: gen weakness, anemia 84 year old man with history of HTN/HLD, PAD s/p PCI on ASA/Plavix, Early Dementia, CKD III-IV presented with generalized weakness and anemia. Patient was last seen in October where he was admitted for sickle cell episode while he was at [facility], and had an implantable loop recorder placed to rule out arrhythmic events. No such events of been found at this time. Since that admission, patient has been becoming more more weak, losing weight. According to his family in the past couple weeks he's been minimally moving out of bed, has very little appetite. Today, as he was trying to walk to the kitchen, he felt too weak to make it there, so he sat down on the ground and laid down. Patient reports she's been feeling more easily cold recently, no appetite, weak. In addition, he also had an episode of abdominal pain that was sharp and epigastric which lasted for several minutes and then subsided on its own. Patient denies chest pain, palpitations, shortness of breath, nausea, vomiting, flushing, diaphoresis, night sweats, dysuria, dyschezia. Patient was not aware that he had melenic stools. Denies any bright red blood per rectum. Denies tenesmus. Denies numbness of his upper or lower extremities. On arrival patient is afebrile, 161/70, 77 heart rate, 97% on room air. CBC was remarkable for anemia down to 9.0. Chemistries show hyponatremia and a 134, CO2 of 20, BUN of 46, creatinine of 1.98. LFTs were unremarkable. There is a mild troponin elevation 0.087. Coags showed PTT of 20.5. FOBT was done in the [facility] room, provider noted that the stool itself looks very melenic. Patient has computed tomography scan done on the ninth of this month, which showed mild jejunal wall thickening as well as some presacral edema and diverticulosis without diverticulitis. EKG shows normal sinus rhythm with right bundle-branch block. Review of Systems All Systems reviewed and pertinent positives and negatives noted in HPI, all other symptoms are negative Past Medical History Past Medical History: Cancer, Dementia, Hyperlipidemia, Hypertension, Memory Impairment, Osteoarthritis (OA), Prostate Disorder, Vascular Disorder Additional Past Medical History / Comment(s): Hx prostate and skin cancer; PAST ASBESTOS EXPOSURE. C/O Pain in Rt leg w/ walking. History of Any Multi-Drug Resistant Organisms: None Reported Past Surgical History: Appendectomy, Joint Replacement Additional Past Surgical History / Comment(s): 02/12/15 Total L hip arthroplasty. Exc skin CA face, mass removed from base of spine, vascular surgery lt leg, jabari cataracts, 6-13-16 TOTAL RT HIP, hemorrhoidectomy Past Anesthesia/Blood Transfusion Reactions: No Reported Reaction Past Psychological History: No Psychological Hx Reported Smoking Status: Never smoker Past Alcohol Use History: Occasional Past Drug Use History: None Reported - Past Family History Brother(s) Family Medical History: Deep Vein Thrombosis (DVT) Mother Family Medical History: No Reported History Father Additional Family Medical History / Comment(s): AT AGE 50 Medications and Allergies Home Medications Medication Instructions Recorded Confirmed Type Atorvastatin [Lipitor] 80 mg PO HS 01/31/15 11/28/19 History Clopidogrel Bisulfate [Clopidogrel] 75 mg PO DAILY 01/31/15 11/28/19 History Donepezil HCl [Aricept] 10 mg PO HS 09/17/15 11/28/19 History Aspirin 325 mg PO HS 10/30/19 11/28/19 History Cholecalciferol [Vitamin D3 (25 1,000 unit PO BID 10/30/19 11/28/19 History Mcg = 1000 Iu)] Multivitamins, Thera [Multivitamin 1 tab PO HS 10/30/19 11/28/19 History (formulary)] Sodium Bicarbonate Tab 650 mg PO DAILY 10/30/19 11/28/19 History amLODIPine [Norvasc] 5 mg PO BID #60 tab 11/02/19 11/28/19 Rx hydrALAZINE HCL [Apresoline] 25 mg PO QID 11/28/19 11/28/19 History Allergies Allergy/AdvReac Type Severity Reaction Status Date / Time No Known Allergies Allergy Verified 11/28/19 16:06 Physical Exam Osteopathic Statement: *. No significant issues noted on an osteopathic structural exam other than those noted in the History and Physical/Consult. Vitals: Vital Signs Temp Pulse Pulse Resp BP Pulse Ox 11/28/19 15:00 82 16 153/67 98 11/28/19 13:46 76 16 99 11/28/19 13:44 84 16 11/28/19 13:36 97.6 F 77 16 161/70 97 Intake and Output 11/28/19 11/28/19 11/28/19 06:59 14:59 22:59 Other: Weight 70.307 kg Gen: awake, alert HEENT: normocephalic, atraumatic, good hearing acuity, moist mucous membranes Resp: CTAB, good air exchange, no accessory muscle use, no wheezes, crackles, rhonchi CVS: good distal perfusion x 4, RRR, no murmurs, clicks, gallops GI: soft, NTTP, ND : no SPT, no CVAT, wilcox catheter not present MSK: no pitting edema, no clubbing Neuro: non-focal, no sensory deficits, appropriate tone Psych: cooperative, euthymic mood Results CBC & Chem 7: 11/28/19 14:45 11/28/19 14:45 Labs: Abnormal Lab Results - Last 24 Hours (Table) 11/28/19 11/28/19 11/28/19 Range/Units 14:45 14:45 14:45 RBC 2.93 L (4.30-5.90) m/uL Hgb 9.0 L (13.0-17.5) gm/dL Hct 28.7 L (39.0-53.0) % Neutrophils # 9.3 H (1.3-7.7) k/uL Lymphocytes # 0.4 L (1.0-4.8) k/uL APTT (22.0-30.0) sec Sodium 134 L (137-145) mmol/L Carbon Dioxide 20 L (22-30) mmol/L BUN 46 H (9-20) mg/dL Creatinine 1.98 H (0.66-1.25) mg/dL Glucose 118 H (74-99) mg/dL Troponin I 0.087 H* (0.000-0.034) ng/mL 11/28/19 Range/Units 14:45 RBC (4.30-5.90) m/uL Hgb (13.0-17.5) gm/dL Hct (39.0-53.0) % Neutrophils # (1.3-7.7) k/uL Lymphocytes # (1.0-4.8) k/uL APTT 20.5 L (22.0-30.0) sec Sodium (137-145) mmol/L Carbon Dioxide (22-30) mmol/L BUN (9-20) mg/dL Creatinine (0.66-1.25) mg/dL Glucose (74-99) mg/dL Troponin I (0.000-0.034) ng/mL Assessment and Plan Assessment: 1. Generalized weakness and Unintentional Weight Loss 2. Upper GI bleed 3. Normocytic anemia 4. CKD stage III 5. Peripheral arterial disease 6. Early Dementia 84 year old man with history of HTN/HLD, PAD s/p PCI on ASA/Plavix, Early Dementia, CKD III-IV presented with generalized weakness and anemia, with abdominal pain and poor PO intake worsening over last few months with unintentional weight loss. Plan: #Gen Weakness/Unintentional Weight Loss - PT/OT - dietitian referral - CLD for now, advance as tolerated following procedure - IVF #Upper GI Bleed #Normocytic Anemia #CKD III - GI referral - maintain large bore IV access, active type/cross - transfusion goal > 7 - hold home ASA, continue home plavix until we can decide whether to pursue EGD +/- [place] given stable hemoglobin across several months - PPI IV BID - Iron Panel, B12, Folate level - daily BMP, Mg - avoid nephrotoxins, renally dose meds Chronic Medical Conditions: #PAD #Early Dementia - remainder of care per med rec - continue home meds unless otherwise specified above Full Code DPOA is DVT PPx not indicated
[2019-11-28] MEDS: hydrALAZINE HCL 25 MG TAB PO SCH ×2 (17:54→21:03)
[2019-11-28] MEDS: DONEPEZIL 10 MG TAB PO SCH (21:03)
[2019-11-28] MEDS: MULTIVITAMINS, THERA 1 EACH TAB PO SCH (21:04)
[2019-11-28] MEDS: amLODIPine 5 MG TAB PO SCH (21:04)
[2019-11-28] MEDS: ATORVASTATIN 80 MG TAB PO SCH (21:04)
[2019-11-28] MEDS: CHOLECALCIFEROL 1,000 UNIT TAB PO SCH (21:04)
[2019-11-28] MEDS: PANTOPRAZOLE 40 MG/10 ML VIAL IVP SCH (23:53)
[2019-11-29 06:35] LABS: Basophils % (A) 1 %; Eosinophils # (A) 0.4 k/uL (0-0.7); Eosinophils % (A) 5 %; HCT 23.4 % (39.0-53.0); HGB 7.6 gm/dL (13.0-17.5); Lymphocytes # (A) 0.6 k/uL (1.0-4.8); Lymphocytes % (A) 8 %; MCH 31.5 pg (25.0-35.0); MCHC 32.3 g/dL (31.0-37.0); MCV 97.3 fL (80.0-100.0); Mean Platelet Volume 7.6; Monocytes # (A) 0.4 k/uL (0-1.0); Monocytes % (A) 6 %; Neutrophils # (A) 5.5 k/uL (1.3-7.7); Neutrophils % (A) 78 %; Platelet Count 232 k/uL (150-450); RDW 13.4 % (11.5-15.5); WBC 7.1 k/uL (3.8-10.6)
[2019-11-29 06:51] LABS: Calcium 8.5 mg/dL (8.4-10.2); Magnesium 2.1 mg/dL (1.6-2.3); Potassium 3.8 mmol/L (3.5-5.1)
[2019-11-29] MEDS: LACTATED RINGERS 1,000 ML IV SCH ×3 (08:47→22:22)
[2019-11-29] MEDS: hydrALAZINE HCL 25 MG TAB PO SCH ×4 (08:47→21:04)
[2019-11-29] MEDS: CHOLECALCIFEROL 1,000 UNIT TAB PO SCH ×2 (08:47→21:04)
[2019-11-29] MEDS: SODIUM BICARBONATE TAB 650 MG TAB PO SCH (08:47)
[2019-11-29] MEDS: PANTOPRAZOLE 40 MG/10 ML VIAL IVP SCH ×2 (08:47→21:04)
[2019-11-29] MEDS: amLODIPine 5 MG TAB PO SCH ×2 (08:47→21:04)
[2019-11-29] MEDS ORDERED: CLOPIDOGREL 75 MG TAB PO SCH (09:00)
--- NOTE | 2019-11-29 12:31 | P.PN ---
Subjective Progress Note Date: 11/29/19 No new complaints today. Hgb down to 7.6, however, pt reports he feels better with good appetite. Objective - Vital Signs Vital signs: Vital Signs Temp 98.2 F 11/29/19 11:37 Pulse 78 11/29/19 11:37 Resp 16 11/29/19 11:37 BP 124/60 11/29/19 11:37 Pulse Ox 97 11/29/19 11:37 Intake & Output 11/28/19 11/29/19 11/29/19 18:59 06:59 18:59 Intake Total 500 75 Output Total 300 650 Balance 500 -300 -575 Weight 70.307 kg 59.3 kg Intake: Amount of Fluid Infused ( 500 ml) Intake, IV Titration 75 Amount Lactated Ringers 1,000 ml 75 @ 75 mls/hr IV .[id number] NIALL Rx#:[id number] Output: Urine 300 650 Other: # Voids 1 1 - Exam Gen: awake, alert HEENT: normocephalic, atraumatic, good hearing acuity, moist mucous membranes Resp: CTAB, good air exchange, no accessory muscle use, no wheezes, crackles, rhonchi CVS: good distal perfusion x 4, RRR, no murmurs, clicks, gallops GI: soft, NTTP, ND : no SPT, no CVAT, wilcox catheter not present MSK: no pitting edema, no clubbing Neuro: non-focal, no sensory deficits, appropriate tone Psych: cooperative, euthymic mood - Labs CBC & Chem 7: 11/29/19 06:09 11/29/19 06:09 Labs: Abnormal Lab Results - Last 24 Hours (Table) 11/28/19 11/28/19 11/28/19 Range/Units 14:45 14:45 14:45 RBC 2.93 L (4.30-5.90) m/uL Hgb 9.0 L (13.0-17.5) gm/dL Hct 28.7 L (39.0-53.0) % Neutrophils # 9.3 H (1.3-7.7) k/uL Lymphocytes # 0.4 L (1.0-4.8) k/uL APTT (22.0-30.0) sec Sodium 134 L (137-145) mmol/L Carbon Dioxide 20 L (22-30) mmol/L BUN 46 H (9-20) mg/dL Creatinine 1.98 H (0.66-1.25) mg/dL Glucose 118 H (74-99) mg/dL Troponin I 0.087 H* (0.000-0.034) ng/mL 11/28/19 11/28/19 11/28/19 Range/Units 14:45 17:45 21:04 RBC (4.30-5.90) m/uL Hgb (13.0-17.5) gm/dL Hct (39.0-53.0) % Neutrophils # (1.3-7.7) k/uL Lymphocytes # (1.0-4.8) k/uL APTT 20.5 L (22.0-30.0) sec Sodium (137-145) mmol/L Carbon Dioxide (22-30) mmol/L BUN (9-20) mg/dL Creatinine (0.66-1.25) mg/dL Glucose (74-99) mg/dL Troponin I 0.100 H* 0.111 H* (0.000-0.034) ng/mL 11/29/19 11/29/19 Range/Units 06:09 06:09 RBC 2.40 L (4.30-5.90) m/uL Hgb 7.6 L (13.0-17.5) gm/dL Hct 23.4 L (39.0-53.0) % Neutrophils # (1.3-7.7) k/uL Lymphocytes # 0.6 L (1.0-4.8) k/uL APTT (22.0-30.0) sec Sodium 136 L (137-145) mmol/L Carbon Dioxide (22-30) mmol/L BUN 39 H (9-20) mg/dL Creatinine 1.86 H (0.66-1.25) mg/dL Glucose 101 H (74-99) mg/dL Troponin I (0.000-0.034) ng/mL Assessment and Plan Assessment: 1. Generalized weakness and Unintentional Weight Loss 2. Upper GI bleed 3. Normocytic anemia 4. CKD stage III 5. Peripheral arterial disease 6. Early Dementia 84 year old man with history of HTN/HLD, PAD s/p PCI on ASA/Plavix, Early Dementia, CKD III-IV presented with generalized weakness and anemia, with abdominal pain and poor PO intake worsening over last few months with unintentional weight loss. Plan: #Gen Weakness/Unintentional Weight Loss - PT/OT - dietitian referral - GI to follow along for diet - IVF #Upper GI Bleed #Normocytic Anemia #CKD III - GI referral, appreciate recs - maintain large bore IV access, active type/cross - transfusion goal > 7 - hold home ASA, continue home plavix until we can decide whether to pursue EGD +/- [place] given stable hemoglobin across several months - PPI IV BID - Iron Panel, B12, Folate level - daily BMP, Mg - avoid nephrotoxins, renally dose meds Chronic Medical Conditions: #PAD #Early Dementia - remainder of care per med rec - continue home meds unless otherwise specified above Full Code DPOA is DVT PPx not indicated
[2019-11-29 13:53] LABS: Appearance,Urine Clear (Clear); Bilirubin,Urine Negative (Negative); Blood,Urine Negative (Negative); Color,Urine Yellow; Glucose,Urine (UA) Negative (Negative); Ketones,Urine Negative (Negative); Leukocyte Esterase,Urine Negative (Negative); Nitrite,Urine Negative (Negative); Protein,Urine Trace (Negative); Specific Gravity,Urine 1.012 (1.001-1.035); Urobilinogen,Urine <2.0 mg/dL (<2.0)
--- NOTE | 2019-11-29 18:51 | CONS ---
CONSULTATION REASON FOR CONSULT: Renal failure. HISTORY OF PRESENT ILLNESS: Patient is an 84-year-old male who was admitted to the hospital with complaints of increased weakness, fatigue, decreased oral intake. He does have a history of CKD, stage 3B to 4, and was recently seen at our office for initial evaluation about a month ago and then patient had a follow-up visit. Both of them were virtual visits. Patient's lisinopril was discontinued about a month ago and he was started on Norvasc and hydralazine. According to his , his blood pressure was high once the lisinopril was discontinued but currently much improved with increased dose of hydralazine and Norvasc. Serum creatinine has been at about 1.9 to 1.7 mg/dL most of November of 2019. Prior creatinine values have been at 1.[address] to December of 2018, with a peak at 2.5 in September of 2019. There is no history of use of NSAIDs. Currently patient is receiving IV fluids. He denies any diarrhea, nausea, vomiting. He has good urine output. Ultrasound of the kidneys done on 11/18/2019 showed atrophic left kidney. Blood pressure has not been high; in fact, it is on the lower side. 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 PAST SURGICAL HISTORY: Appendectomy, left hip arthroplasty, excision of skin cancer, removal of a mass from the base of the spine, cataract surgery, hemorrhoidectomy, right hip arthroplasty as well. SOCIAL HISTORY: Negative for smoking, drug abuse or alcohol abuse. MEDICATIONS: Medications prior to admission include Lipitor, Plavix, Aricept, aspirin, vitamin D, Norvasc, sodium bicarb, hydralazine. ALLERGIES: NONE. REVIEW OF SYSTEMS: As per HPI. Other systems negative. PHYSICAL EXAMINATION: Patient is currently comfortable, awake, not in any acute distress. Blood pressure is 131/61, heart rate 69 per minute. Patient is afebrile. EXAMINATION OF THE HEART: S1 and S2. EXAMINATION OF LUNGS: Bilateral breath sounds are heard. ABDOMEN: Soft, non-tender. Examination of lower extremities shows no evidence of edema. [employer] exam is grossly intact. Patient moving all 4 extremities. LABS: Labs show sodium 136, potassium 3.8, chloride 106, BUN 39, creatinine 1.86, hemoglobin 7.6 g/dL. Stool for occult blood was positive. Troponin 0.11. UA not available this hospitalization. Previous UA on 11/19 shows trace protein, no blood or cells. ASSESSMENT: 1. Chronic kidney disease, NKF stage 4, with baseline creatinine that appears to be around 1.8 mg/dL all the way back to 2018. We do have a low creatinine of 1.48 on 11/01/2019. This could be his actual baseline, although it is unclear at this time. Patient has good urine output. He is not on any nephrotoxic medications. I will maintain the IV fluids and maintain him off of the OLI inhibitors for now. 2. Metabolic acidosis associated with chronic kidney disease, maintained on sodium bicarb. 3. Hypertension, maintained on hydralazine and amlodipine, currently controlled. 4. Anemia with positive stool for occult blood. To be evaluated by GI. 5. Borderline elevated troponins. Patient follows with Cardiology. He sees Dr. Grant as outpatient. 6. History of prostatic cancer; details not available. PLAN: Continue with IV fluids. Continue current anti-hypertensive regimen. Patient is advised that there may be a component of acute kidney injury associated with anemia and some degree of hypoperfusion. He does have asymmetric kidneys, with atrophic left kidney on ultrasound. Thank you for this consultation. Will continue to follow the patient with you during his hospitalization. MMODL / IJN: [id number] /
[2019-11-29] MEDS: DONEPEZIL 10 MG TAB PO SCH (21:04)
[2019-11-29] MEDS: MULTIVITAMINS, THERA 1 EACH TAB PO SCH (21:04)
[2019-11-29] MEDS: ATORVASTATIN 80 MG TAB PO SCH (21:04)
[2019-11-30 01:08] LABS: % Iron Saturation 9.35 (15.00-50.00)
--- NOTE | 2019-11-30 03:06 | CONS ---
CONSULTATION DATE OF DICTATION: 11/29/2019 REASON FOR CONSULTATION: Anemia, fatigue, weakness, and weight loss. HISTORY OF PRESENT ILLNESS: The patient is an 84-year-old pleasant white male with history of hypertension, coronary artery disease, chronic kidney disease, presents to the hospital with generalized weakness, not feeling well, fatigue and symptomatic anemia. Most of the history was obtained from the patient's who is caring for him. Apparently, he lost about 12 pounds in the last 6 months duration. He has been having decreased oral intake, intermittent dark-colored stools. Denies any abdominal pain. No nausea, vomiting. Oral intake has been significantly decreased. He reports no heartburn. No nausea, no vomiting. No rectal bleeding. In the emergency room, he was noted to have hemoglobin that was 9 g/dL and subsequently dropped to 8.5 g/dL. He never had an upper endoscopy in the past. Her last colonoscopy was several years ago. He did have a CT of the abdomen and pelvis done in early part of last month that showed mild jejunal wall thickening and diverticulosis. PAST MEDICAL HISTORY: Significant for hypertension, coronary artery disease, degenerative joint disease, benign prostatic hypertrophy, peripheral vascular disease, history of skin cancer. PAST SURGICAL HISTORY: Appendectomy, left hip arthroplasty, bilateral cataract surgery, hemorrhoidectomy, mass removed from the base of the spine. SOCIAL HISTORY: No smoking. No alcohol use. FAMILY HISTORY: Brother had DVT. Mother unremarkable. Father at age 50. MEDICATIONS: Medications at home include Lipitor, Plavix, Aricept, aspirin, vitamin D3, multivitamin, sodium bicarb, Norvasc, hydralazine. ALLERGIES: None. REVIEW OF SYSTEMS: CARDIOPULMONARY: He denies any chest pain, no shortness of breath. GENITOURINARY: No dysuria. No hematuria. MUSCULOSKELETAL: Generalized weakness, some back pain. NEUROLOGY: Unremarkable. Mild dementia. PSYCHIATRIC: Unremarkable. ENT/VISION: Unremarkable. CONSTITUTIONAL: Weight loss of 12 pounds in the last 6 months. No fever, chills, night sweats. HEMATOLOGY: Anemia. ENDOCRINE: Unremarkable. ONCOLOGY: Unremarkable. PHYSICAL EXAMINATION: He appears comfortable. No apparent distress. Vital signs are stable. Blood pressure is 101/70, pulse rate 82, temperature 97. HEENT EXAMINATION: Unremarkable. Conjunctivae pink. Sclerae anicteric. Oral cavity no lesions. NECK: No JVD or lymph node enlargement. CHEST: Clear to auscultation. HEART: Regular rate and rhythm. ABDOMEN: Soft. EXTREMITIES: No pedal edema. NEURO: He is alert and oriented x3. No focal deficits. LABS: Labs done at the time of admission to the hospital include: WBC 10.3, hemoglobin 9, platelets normal. BUN and creatinine 46 and 1.98. Today, BUN is 39, creatinine 1.86. Hemoglobin is down to 7.6 g/dL, MCV is 97. PTT, INR is within normal limits. IMPRESSION: 1. This is a patient who presents to the hospital with generalized weakness, fatigue, not feeling well and symptomatic anemia with a hemoglobin of 7.6 g/dL. Clinically no evidence of active bleeding, but he thinks he has been having some black-colored stools for the last 2 or 3 days duration. Possibility of an upper gastrointestinal source of bleeding needs to be considered. 2. Chronic kidney disease. 3. Symptomatic anemia. 4. Progressive weight loss of 12 pounds in the last 6 months duration. 5. Mildly elevated troponin levels. 6. Stool occult blood positive. RECOMMENDATIONS: 1. Continue with Protonix 40 mg daily. 2. Monitor CBC on a daily basis and transfuse if hemoglobin is less than 7. 3. We will proceed with an upper endoscopy tomorrow. I discussed with him as well as his risks, benefits and complications of the procedure and he is agreeable to it. Thank you for this consultation. We will follow with you closely. EDWINL / IJN: [id number] /
[2019-11-30 06:27] LABS: HCT 22.2 % (39.0-53.0); HGB 7.1 gm/dL (13.0-17.5); MCH 31.6 pg (25.0-35.0); MCHC 32.1 g/dL (31.0-37.0); MCV 98.5 fL (80.0-100.0); RBC 2.25 m/uL (4.30-5.90); WBC 6.3 k/uL (3.8-10.6)
[2019-11-30 06:28] LABS: Basophils % (A) 1 %; Eosinophils # (A) 0.5 k/uL (0-0.7); Eosinophils % (A) 7 %; Lymphocytes # (A) 0.7 k/uL (1.0-4.8); Lymphocytes % (A) 12 %; Mean Platelet Volume 7.6; Monocytes # (A) 0.4 k/uL (0-1.0); Monocytes % (A) 6 %; Neutrophils # (A) 4.6 k/uL (1.3-7.7); Neutrophils % (A) 73 %; Platelet Count 216 k/uL (150-450); RDW 13.3 % (11.5-15.5)
[2019-11-30 06:43] LABS: Calcium 8.3 mg/dL (8.4-10.2); Magnesium 1.9 mg/dL (1.6-2.3); Potassium 3.9 mmol/L (3.5-5.1)
[2019-11-30] MEDS: CHOLECALCIFEROL 1,000 UNIT TAB PO SCH ×2 (08:16→19:59)
[2019-11-30] MEDS: SODIUM BICARBONATE TAB 650 MG TAB PO SCH (08:16)
[2019-11-30] MEDS: hydrALAZINE HCL 25 MG TAB PO SCH ×4 (08:16→22:34)
[2019-11-30] MEDS: amLODIPine 5 MG TAB PO SCH ×2 (08:16→19:59)
[2019-11-30] MEDS: LACTATED RINGERS 1,000 ML IV SCH ×3 (08:17→22:34)
[2019-11-30] MEDS: PANTOPRAZOLE 40 MG/10 ML VIAL IVP SCH ×2 (08:17→19:59)
--- NOTE | 2019-11-30 10:51 | P.PN ---
Subjective Progress Note Date: 11/30/19 No new complaints today, patient is pending EGD at noon. Objective - Vital Signs Vital signs: Vital Signs Temp 98.9 F 11/30/19 08:10 Pulse 76 11/30/19 08:10 Resp 16 11/30/19 08:10 BP 130/61 11/30/19 08:10 Pulse Ox 93 L 11/30/19 08:10 Intake & Output 11/29/19 11/30/19 11/30/19 18:59 06:59 18:59 Intake Total 756 733 Output Total 1150 200 Balance -394 533 Weight 59.3 kg 59.5 kg Intake: Intake, IV Titration 75 600 Amount Lactated Ringers 1,000 ml 75 600 @ 75 mls/hr IV .[id number] [facility] Rx#:[id number] Oral 681 133 Output: Urine 1150 200 Other: Voiding Method Urinal Urinal - Exam Gen: awake, alert HEENT: normocephalic, atraumatic, good hearing acuity, moist mucous membranes Resp: CTAB, good air exchange, no accessory muscle use, no wheezes, crackles, rhonchi CVS: good distal perfusion x 4, RRR, no murmurs, clicks, gallops GI: soft, NTTP, ND : no SPT, no CVAT, wilcox catheter not present MSK: no pitting edema, no clubbing Neuro: non-focal, no sensory deficits, appropriate tone Psych: cooperative, euthymic mood - Labs CBC & Chem 7: 11/30/19 06:00 11/30/19 06:00 Labs: Abnormal Lab Results - Last 24 Hours (Table) 11/29/19 11/29/19 11/30/19 Range/Units 06:09 11:00 06:00 RBC 2.25 L (4.30-5.90) m/uL Hgb 7.1 L (13.0-17.5) gm/dL Hct 22.2 L (39.0-53.0) % Lymphocytes # 0.7 L (1.0-4.8) k/uL Sodium (137-145) mmol/L BUN (9-20) mg/dL Creatinine (0.66-1.25) mg/dL Glucose (74-99) mg/dL Calcium (8.4-10.2) mg/dL Iron 26 L (65-175) ug/dL % Saturation 9.35 L (15.00-50.00) Vitamin B12 1157.0 H (200.0-944.0) pg/mL Urine Protein Trace H (Negative) 11/30/19 Range/Units 06:00 RBC (4.30-5.90) m/uL Hgb (13.0-17.5) gm/dL Hct (39.0-53.0) % Lymphocytes # (1.0-4.8) k/uL Sodium 134 L (137-145) mmol/L BUN 31 H (9-20) mg/dL Creatinine 1.81 H (0.66-1.25) mg/dL Glucose 105 H (74-99) mg/dL Calcium 8.3 L (8.4-10.2) mg/dL Iron (65-175) ug/dL % Saturation (15.00-50.00) Vitamin B12 (200.0-944.0) pg/mL Urine Protein (Negative) Assessment and Plan Assessment: 1. Generalized weakness and Unintentional Weight Loss 2. Upper GI bleed 3. Normocytic anemia 4. CKD stage III 5. Peripheral arterial disease 6. Early Dementia 84 year old man with history of HTN/HLD, PAD s/p PCI on ASA/Plavix, Early Dementia, CKD III-IV presented with generalized weakness and anemia, with abdominal pain and poor PO intake worsening over last few months with unintentional weight loss. Plan: #Gen Weakness/Unintentional Weight Loss - PT/OT - dietitian referral - GI to follow along for diet - IVF #Upper GI Bleed #Normocytic Anemia #CKD III - GI referral, appreciate recs - maintain large bore IV access, active type/cross - transfusion goal > 7 - hold home ASA, hold home plavix for EGD - PPI IV BID - Iron Panel, B12, Folate level - daily BMP, Mg - avoid nephrotoxins, renally dose meds - nephrology consulted Chronic Medical Conditions: #PAD #Early Dementia - remainder of care per med rec - continue home meds unless otherwise specified above Full Code DPOA is DVT PPx not indicated
[2019-11-30] MEDS: SODIUM FERRIC GLUCONAT-SUCROSE 125 MG in SODIUM CHLORIDE 0.9% 100 ML IVPB SCH (11:34)
[2019-11-30] MEDS ORDERED: LIDOCAINE 1% INJ 10MG/ML (20 ML MDV) ONE (13:30)
[2019-11-30] MEDS ORDERED: PROPOFOL 10 MG/ML 20 ML VIAL IV ONE (13:30)
[2019-11-30] MEDS ORDERED: IV FLUID CONTINUATION 1,000 ML IV ONE (13:33)
--- NOTE | 2019-11-30 13:46 | P.PCN ---
Date of Procedure: 11/30/19 Procedure(s) Performed: BRIEF HISTORY: Patient is a 84-year-old, pleasant, white male admitted hospital with fatigue weakness and symptomatically anemia with a hemoglobin of 7.1 g/dL he has some questionable dark colored stools. His and scheduled for an upper endoscopy to evaluate further.. PROCEDURE PERFORMED: Esophagogastroduodenoscopy with cautery and biopsy. PREOPERATIVE DIAGNOSIS: Severe symptomatic anemia and dark colored stools.. IV sedation per anesthesia. PROCEDURE: After informed consent was obtained, the patient was brought into the endoscopy unit. IV sedation was administered by Anesthesia under continuous monitoring. Initially the Olympus GIF-140 video endoscope was inserted into the mouth. Esophagus intubated without any difficulty. It was gradually advanced into the stomach and duodenum and carefully examined. Along the duodenal sweep there was a 5 mm superficial bulbar ulcer noted. Biopsies were done from this area. In the duodenal bulb there were 2 nonbleeding angiectasia identified which were cauterized using argon plasma coag ablation. The scope at this time was withdrawn to the stomach, adequately insufflated with air, and upon careful examination, mucosa of the antrum, body, cardia and the fundus appeared normal. The scope was then withdrawn into the esophagus. The GE junction was located at 39 cm from the incisors. The esophagus appeared normal. There were no erosions or ulcerations seen and the patient tolerated the procedure well. IMPRESSION: 1. 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 2. 5 mm superficial duodenal bulbar ulcer. RECOMMENDATIONS: The findings of this examination were discussed with the patient as well as his family. He'll be continued on Protonix 40 mg daily. Diet will be advanced as tolerated. Monitor CBC on a daily basis.
--- NOTE | 2019-11-30 15:39 | PN ---
PROGRESS NOTE Patient is seen for followup for chronic kidney disease. He is currently lying in bed. He is comfortable. is present at bedside. Patient is scheduled for EGD. He denies any significant complaints. Patient has had good urine output. PHYSICAL EXAMINATION: Blood pressure is 131/60, heart rate 75 per minute. He is afebrile. EXAMINATION OF THE HEART: S1 and S2. EXAMINATION OF LUNGS: Bilateral breath sounds are heard. ABDOMEN: Soft, non-tender. Examination of lower extremities shows trace edema, right lower extremity. No significant edema noted in the left lower extremity. [employer] exam is grossly intact. LABS: Labs show sodium 134, potassium 3.9, chloride 106, BUN 31, creatinine 1.8, hemoglobin 7.1 g/dL. ASSESSMENT: 1. Chronic kidney disease stage IIIB. Baseline creatinine appears to be around 1.8. However, there was a reading of about 1.48 on 11/01/2019. Therefore there may be a component of acute kidney injury. Nevertheless, renal function is fairly stable and patient is not on any nephrotoxic medications. 2. Metabolic acidosis, maintained on sodium bicarb as outpatient as well. 3. Anemia with positive stool for occult blood and evidence of iron deficiency with GI on consult and plans for EGD today. 4. Asymmetric kidneys with left renal atrophy. PLAN: Continue with the hydralazine and Norvasc for blood pressure. Follow up as outpatient for CKD. Continue with the sodium bicarb and add IV iron. Encourage increased oral intake when patient is able to eat. MMODL / IJN: [id number] /
[2019-11-30] MEDS: DONEPEZIL 10 MG TAB PO SCH (19:59)
[2019-11-30] MEDS: MULTIVITAMINS, THERA 1 EACH TAB PO SCH (19:59)
[2019-11-30] MEDS: ATORVASTATIN 80 MG TAB PO SCH (19:59)
[2019-12-01 06:58] LABS: Basophils % (A) 1 %; Eosinophils # (A) 0.4 k/uL (0-0.7); Eosinophils % (A) 9 %; HCT 22.7 % (39.0-53.0); HGB 7.1 gm/dL (13.0-17.5); Lymphocytes # (A) 0.6 k/uL (1.0-4.8); Lymphocytes % (A) 12 %; MCH 30.7 pg (25.0-35.0); MCHC 31.5 g/dL (31.0-37.0); MCV 97.5 fL (80.0-100.0); Mean Platelet Volume 8.6; Monocytes # (A) 0.3 k/uL (0-1.0); Monocytes % (A) 6 %; Neutrophils # (A) 3.5 k/uL (1.3-7.7); Neutrophils % (A) 71 %; Platelet Count 202 k/uL (150-450); RBC 2.33 m/uL (4.30-5.90); RDW 13.3 % (11.5-15.5)
[2019-12-01 07:13] LABS: Calcium 8.4 mg/dL (8.4-10.2); Magnesium 1.8 mg/dL (1.6-2.3); Potassium 4.2 mmol/L (3.5-5.1)
[2019-12-01] MEDS: PANTOPRAZOLE 40 MG/10 ML VIAL IVP SCH ×2 (10:04→19:30)
[2019-12-01] MEDS: SODIUM FERRIC GLUCONAT-SUCROSE 125 MG in SODIUM CHLORIDE 0.9% 100 ML IVPB SCH (10:04)
[2019-12-01] MEDS: amLODIPine 5 MG TAB PO SCH ×2 (10:04→19:30)
[2019-12-01] MEDS: SODIUM BICARBONATE TAB 650 MG TAB PO SCH (10:04)
[2019-12-01] MEDS: hydrALAZINE HCL 25 MG TAB PO SCH ×4 (10:04→22:41)
[2019-12-01] MEDS: CHOLECALCIFEROL 1,000 UNIT TAB PO SCH ×2 (10:04→19:30)
--- NOTE | 2019-12-01 10:52 | P.PN ---
Subjective Progress Note Date: 12/01/19 No new complaints at this time. Pt's hemoglobin today is 7.1, currently on IV iron transfusion. Objective - Vital Signs Vital signs: Vital Signs Temp 98.0 F 12/01/19 04:00 Pulse 76 12/01/19 04:00 Resp 18 12/01/19 04:00 BP 122/57 12/01/19 04:00 Pulse Ox 94 L 12/01/19 04:00 Intake & Output 11/30/19 12/01/19 12/01/19 18:59 06:59 18:59 Intake Total 1240 1200 Output Total 625 Balance 1240 575 Weight 57.2 kg Intake: IV 300 Intake, IV Titration 700 1200 Amount Lactated Ringers 1,000 ml 600 1200 @ 75 mls/hr IV .[id number] [facility] Rx#:[id number] Sodium Ferric Gluconat- 100 Sucrose 125 mg In Sodium Chloride 0.9% 100 ml @ 100 mls/hr IVPB DAILY [facility] Rx#:[id number] Oral 240 Output: Urine 625 Other: Voiding Method Urinal Urinal - Exam Gen: awake, alert HEENT: normocephalic, atraumatic, good hearing acuity, moist mucous membranes Resp: CTAB, good air exchange, no accessory muscle use, no wheezes, crackles, rhonchi CVS: good distal perfusion x 4, RRR, no murmurs, clicks, gallops GI: soft, NTTP, ND : no SPT, no CVAT, wilcox catheter not present MSK: no pitting edema, no clubbing Neuro: non-focal, no sensory deficits, appropriate tone Psych: cooperative, euthymic mood - Labs CBC & Chem 7: 12/01/19 06:37 12/01/19 06:37 Labs: Abnormal Lab Results - Last 24 Hours (Table) 12/01/19 12/01/19 Range/Units 06:37 06:37 RBC 2.33 L (4.30-5.90) m/uL Hgb 7.1 L (13.0-17.5) gm/dL Hct 22.7 L (39.0-53.0) % Lymphocytes # 0.6 L (1.0-4.8) k/uL Sodium 136 L (137-145) mmol/L BUN 23 H (9-20) mg/dL Creatinine 1.71 H (0.66-1.25) mg/dL Glucose 108 H (74-99) mg/dL Assessment and Plan Assessment: 1. Generalized weakness and Unintentional Weight Loss 2. Upper GI bleed 3. Normocytic anemia 4. CKD stage III 5. Peripheral arterial disease 6. Early Dementia 84 year old man with history of HTN/HLD, PAD s/p PCI on ASA/Plavix, Early Dementia, CKD III-IV presented with generalized weakness and anemia, with abdominal pain and poor PO intake worsening over last few months with unintentional weight loss. Plan: #Gen Weakness/Unintentional Weight Loss - PT/OT - dietitian referral - GI consult - IVF #Upper GI Bleed #Normocytic Anemia #CKD III - GI referral, appreciate recs, s/p EGD = angioectasia and small ulcer (biopsy results pending) - transfusion goal > 7 - hold home ASA, hold home plavix for EGD, restart on discharge - PPI PO daily - Iron Panel, B12, Folate level = iron deficiency anemia, nephrology added IV iron infusions while in house, pt will need daily oral ferrous gluconate on d ischarge Chronic Medical Conditions: #PAD #Early Dementia - remainder of care per med rec - continue home meds unless otherwise specified above Full Code DPOA is DVT PPx not indicated Discharge likely tomorrow to ensure no further drop in hgb warranting PRBC transfusion = will need PPI, oral iron, and GI f/u for biopsy results.
[2019-12-01] MEDS: polyethylene glycoL 3350 17 GM POWD.PACK PO SCH (12:18)
[2019-12-01] MEDS: LACTATED RINGERS 1,000 ML IV SCH ×3 (12:18→22:42)
[2019-12-01] MEDS ORDERED: DARBEPOETIN ALFA 40 MCG/0.4 ML SYRINGE SQ SCH (14:30)
[2019-12-01 15:04] VITALS: BMI 18.6
--- NOTE | 2019-12-01 16:23 | PN ---
PROGRESS NOTE Patient is seen for followup for chronic kidney disease. Patient was admitted to the hospital with anemia and GI bleed. He did have an EGD which showed a duodenal bulb ulcer and angioectasia in the duodenal bulb, which was cauterized. Hemoglobin is stable. Renal function has improved slightly, with creatinine down to 1.7 and GFR at 35 mL/minute. Overall patient denies any significant complaints. PHYSICAL EXAMINATION: On examination today, blood pressure was 142/63, heart rate 84 per minute. He is afebrile. EXAMINATION OF THE HEART: S1 and S2. EXAMINATION OF LUNGS: Bilateral breath sounds are heard. ABDOMEN: Soft, non-tender. Examination of lower extremities shows no evidence of edema. LATH TIER exam is grossly intact. LABS: Sodium 136, potassium 4.2, chloride 106, BUN 23, creatinine 1.7, hemoglobin 7.1 g/dL. Troponin 0.111. UA was fairly benign. ASSESSMENT: 1. Chronic kidney disease, NKF stage 3B, secondary to nephrosclerosis. Baseline creatinine about 1.8, possibly 1.4. 2. Metabolic acidosis, maintained on sodium bicarb as outpatient as well. 3. Anemia with gastrointestinal bleed, status post esophagogastroduodenoscopy which showed duodenal bulb ulcer and angioectasia, status post cauterization. 4. Asymmetric kidneys with left renal atrophy. PLAN: Continue to encourage increased oral intake. May continue with IV fluids if the patient is not eating well. The patient is currently maintained on IV iron, which I will continue for now, as his iron was significantly low. He will receive 3 doses. MMODL / IJN: [id number] /
[2019-12-01] MEDS: NA PHOS,M-B/NA PHOS,DI-BA 133 ML ENEMA RECTAL ONE ×2 (17:00→19:30)
--- NOTE | 2019-12-01 19:17 | PN ---
PROGRESS NOTE DATE OF SERVICE: 12/01/2019 HISTORY OF PRESENT ILLNESS: The patient is an 84-year-old white male admitted to the hospital with anemia, black tarry stools, fatigue, weakness, not feeling well for the last few months duration. He had an upper endoscopy yesterday that showed duodenal angioectasia and small duodenal ulcer. Presently on Protonix 40 mg daily. Denies any bowel movements today. Repeat hemoglobin was 7.1. He has a decreased appetite. He reports no nausea, vomiting. Denies any abdominal pain. Complains of some constipation. PHYSICAL EXAMINATION: Appears comfortable, no apparent distress. Vital signs stable. Blood pressure 120/55, pulse rate 76, temperature 98. HEENT: Examination unremarkable. Conjunctivae are pink. Sclerae anicteric. Oral cavity no lesions. NECK: No JVD or lymph node enlargement. CHEST: Clear to auscultation. HEART: Regular rate and rhythm. ABDOMEN: Soft. Bowel sounds are positive. No organomegaly. EXTREMITIES: No pedal edema. NEURO: He is alert and oriented x3. No focal deficits. LABS: From today hemoglobin 7.1, BUN 23, creatinine 1.7. Rest of the labs are normal. IMPRESSION: 1. Melena of 3 days duration status post EGD yesterday that showed a small duodenal ulcer and duodenal angioectasia for which he underwent argon plasma coagulation. Hemoglobin is 7.1 g/dL. Clinically no active bleeding. 2. Generalized weakness and progressive weight loss for the last several months duration. 3. History of chronic kidney disease. 4. Mild dementia. RECOMMENDATION: 1. Continue with symptomatic and supportive care. 2. Protonix 40 mg daily. 3. Repeat CBC in the morning and if hemoglobin less than 7, transfused with one unit of blood transfusion. 4. Consideration for psychiatric consultation for underlying depression. 5. If his BUN and creatinine are improving, we can consider a CT of the abdomen and pelvis to rule out any intraabdominal pathology causing progressive weight loss and weakness. The plan was discussed with the patient, as well as his and they are agreeable to it. Thank you for this consultation. MMJESUSL / NIKUNJ: [id number] /
[2019-12-01] MEDS: DONEPEZIL 10 MG TAB PO SCH (19:30)
[2019-12-01] MEDS: ATORVASTATIN 80 MG TAB PO SCH (19:30)
[2019-12-01] MEDS: MULTIVITAMINS, THERA 1 EACH TAB PO SCH (19:41)
[2019-12-02 05:57] VITALS: RESP 18
[2019-12-02 08:10] LABS: Basophils % (A) 1 %; Eosinophils # (A) 0.2 k/uL (0-0.7); Eosinophils % (A) 4 %; HCT 23.8 % (39.0-53.0); HGB 7.6 gm/dL (13.0-17.5); Lymphocytes # (A) 0.6 k/uL (1.0-4.8); Lymphocytes % (A) 9 %; MCH 31.7 pg (25.0-35.0); MCV 99.1 fL (80.0-100.0); Mean Platelet Volume 8.3; Monocytes # (A) 0.3 k/uL (0-1.0); Monocytes % (A) 5 %; Neutrophils % (A) 80 %; Platelet Count 238 k/uL (150-450); RBC 2.41 m/uL (4.30-5.90); RDW 13.5 % (11.5-15.5); WBC 6.2 k/uL (3.8-10.6)
[2019-12-02 09:12] VITALS: BP 130/59; PULSE 76; TEMP 98.9
[2019-12-02] MEDS: hydrALAZINE HCL 25 MG TAB PO SCH (09:16)
[2019-12-02] MEDS: polyethylene glycoL 3350 17 GM POWD.PACK PO SCH (09:16)
[2019-12-02] MEDS: amLODIPine 5 MG TAB PO SCH (09:16)
[2019-12-02] MEDS: PANTOPRAZOLE 40 MG/10 ML VIAL IVP SCH (09:16)
[2019-12-02] MEDS: SODIUM BICARBONATE TAB 650 MG TAB PO SCH (09:16)
[2019-12-02] MEDS: CHOLECALCIFEROL 1,000 UNIT TAB PO SCH (09:16)
[2019-12-02] MEDS: SODIUM FERRIC GLUCONAT-SUCROSE 125 MG in SODIUM CHLORIDE 0.9% 100 ML IVPB SCH (09:26)
--- NOTE | 2019-12-02 10:00 | P.DS ---
Providers Date of admission: 11/28/19 15:42 Expected date of discharge: 12/02/19 Attending physician: Bhavna Newton MD Consults: 11/28/19 15:45 Consult Physician Routine Consulting Provider: Beto Casanova Consult Reason/Comments: Melena Do you want consulting provider notified?: Yes Primary care physician: Sandra Ivey Hospital Course: Admitting diagnoses: 1. Generalized weakness and unintentional weight loss 2. Acute upper GI bleed 3. Normocytic anemia 4. CKD stage III 5. PAD 6. Dementia Discharge diagnoses: 1. Acute upper GI bleed resolved 2. 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 5 mm superficial duodenal bulbar ulcer 4. Normocytic anemia stable at 7.6 5. CKD stage III 6. PAD 7. Dementia 8. Generalized weakness and unintentional weight loss 9. Palliative care education Patient seen and examined at bedside. Patient feels fairly well given the circumstances. Patient is eager to go home with his . Patient denies chest pain, shortness of breath, nausea, vomiting, fevers, or chills. Vitals: Temperature 98.9 heart rate 76 respiratory rate 18 blood pressure 130/59 oxygen saturation 96% on room air Hospital course: 84 year old man with history of HTN/HLD, PAD s/p PCI on ASA/Plavix, Early Dementia, CKD III-IV presented with generalized weakness and anemia. Patient was last seen in October where he was admitted for syncopal episode while he was at [facility], and had an implantable loop recorder placed to rule out arrhythmic events. No such events of been found at this time. Since that admission, patient had been becoming more more weak and losing weight. According to his family in the past couple weeks he's been minimally moving out of bed, has very little appetite. On day of admission, as he was trying to walk to the kitchen, he felt too weak to make it there, so he sat down on the ground and laid down. Patient reported he had been feeling more easily cold recently, no appetite, weak. In addition, he also had an episode of abdominal pain that was sharp and epigastric which lasted for several minutes and then subsided on its own. Patient denied chest pain, palpitations, shortness of breath, nausea, vomiting, flushing, diaphoresis, night sweats, or dysuria. Patient was not aware that he had melanic stools. On arrival patient wa afebrile, 161/70, 77 heart rate, 97% on room air. CBC was remarkable for anemia down to 9.0. Chemistries show hyponatremia and a 134, CO2 of 20, BUN of 46, creatinine of 1.98. LFTs were unremarkable. There is a mild troponin elevation 0.087. Coags showed PTT of 20.5. FOBT was done in the emergency room, provider noted that the stool itself looks very melanic. Patient had computed tomography scan done on the ninth of this month, which showed mild jejunal wall thickening as well as some presacral edema and diverticulosis without diverticulitis. EKG shows normal sinus rhythm with right bundle-branch block. Repeat hemoglobin dropped to 7.6 from 9.0 and then to 7.1. Patient was placed on IV Protonix and was kept nothing by mouth. On 11/30/19Gastroenterology performed EGD. 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 Patient's hemoglobin remained stable at 7.6 before discharge and Protonix was converted to oral. Patient did receive iron IV infusions during hospital stay. Patient's inquired about palliative care and information was provided to her. Condition: Fair Activity: As tolerated Diet: Cardiac Follow-up: PCP within 2-7 days and Gastroenterology within 2 weeks Patient Condition at Discharge: Fair Plan - Discharge Summary Discharge Rx Participant: Yes New Discharge Prescriptions: New Pantoprazole [Protonix] 40 mg PO AC-BID #60 tablet. Ferrous Sulfate [Iron (65 MG Elemental)] 325 mg PO BID-W/MEALS #60 tab Continue Atorvastatin [Lipitor] 80 mg PO HS Clopidogrel Bisulfate [Clopidogrel] 75 mg PO DAILY Donepezil HCl [Aricept] 10 mg PO HS Multivitamins, Thera [Multivitamin (formulary)] 1 tab PO HS Sodium Bicarbonate Tab 650 mg PO DAILY Cholecalciferol [Vitamin D3 (25 Mcg = 1000 Iu)] 1,000 unit PO BID Aspirin 325 mg PO HS amLODIPine [Norvasc] 5 mg PO BID #60 tab hydrALAZINE HCL [Apresoline] 25 mg PO QID Discharge Medication List Atorvastatin [Lipitor] 80 mg PO HS 01/31/15 [History] Clopidogrel Bisulfate [Clopidogrel] 75 mg PO DAILY 01/31/15 [History] Donepezil HCl [Aricept] 10 mg PO HS 09/17/15 [History] Aspirin 325 mg PO HS 10/30/19 [History] Cholecalciferol [Vitamin D3 (25 Mcg = 1000 Iu)] 1,000 unit PO BID 10/30/19 [History] Multivitamins, Thera [Multivitamin (formulary)] 1 tab PO HS 10/30/19 [History] Sodium Bicarbonate Tab 650 mg PO DAILY 10/30/19 [History] amLODIPine [Norvasc] 5 mg PO BID #60 tab 11/02/19 [Rx] hydrALAZINE HCL [Apresoline] 25 mg PO QID 11/28/19 [History] Ferrous Sulfate [Iron (65 MG Elemental)] 325 mg PO BID-W/MEALS #60 tab 12/02/19 [Rx] Pantoprazole [Protonix] 40 mg PO AC-BID #60 tablet. 12/02/19 [Rx] Follow up Appointment(s)/Referral(s): Sandra Ivey MD [Primary Care Provider] - 1-2 days Callie Corey MD [STAFF PHYSICIAN] - 2 Weeks Patient Instructions/Handouts: Iron Deficiency Anemia (DC), Melena (GEN) Discharge Disposition: HOME WITH HOME HEALTH SERVICES
--- NOTE | 2019-12-02 12:06 | PN ---
PROGRESS NOTE Patient is seen for follow up for chronic kidney disease and possible acute kidney injury mostly associated with severe anemia. Renal function is improved with creatinine down to about 1.7 from 1.9 mg/dL on initial admission. The patient did have EGD and was found to have a duodenal ulcer. He has not had any active bleeding and is going home today. PHYSICAL EXAMINATION: On examination today, blood pressure was 130/60, heart rate 73 per minute, he is afebrile. Examination of lower extremities shows no evidence of edema. Abdomen is soft, nontender. Patient is euvolemic. INTERNET ASSESSOR exam grossly intact. LABS: Labs are not available from today. Serum creatinine was 1.7 yesterday. Estimated GFR 35 mL/minute. Hemoglobin 7.6 today. ASSESSMENT: 1. Acute kidney injury associated with severe anemia, currently improved. 2. Chronic kidney disease NKF stage 3B secondary to nephrosclerosis with trace protein on UA, otherwise fairly benign. 3. Asymmetric kidneys with left renal atrophy. 4. Anemia with gastrointestinal bleed, status post packed RBCs transfusion and EGD showing duodenal ulcer, maintained on proton pump inhibitors. PLAN: Patient can be discharged. Continue with hydralazine and Norvasc for blood pressure and follow up as outpatient in about 2 weeks time. Patient also has metabolic acidosis for which she is maintained on sodium bicarb which she can continue. MMODL / IJN: [id number] /
[2019-12-02] MEDS ORDERED: PANTOPRAZOLE 40 MG TABLET PO SCH (17:30)
[2019-12-03] MEDS ORDERED: FERROUS SULFATE 325 MG TAB PO SCH (07:30)
== END 2019-12-02 11:53 | disposition home or self-care (01) | DRG 378 ==
LOC: EC 13:32 → 3SCARD 15:42
PROVIDERS: ADMIT Internal Medicine; ATTEND Internal Medicine
PROC: 0D598ZZ Destruction of Duodenum, Via Natural or Artificial Opening Endoscopic (ICD-10-PCS; 2019-11-30)
PROC: 0DB98ZX Excision of Duodenum, Via Natural or Artificial Opening Endoscopic, Diagnostic (ICD-10-PCS; principal; 2019-11-30 12:40)
PROC: 0DB78ZX Excision of Stomach, Pylorus, Via Natural or Artificial Opening Endoscopic, Diagnostic (ICD-10-PCS; 2019-11-30 12:40)
DX: K92.1 Melena (principal); E87.1 Hypo-osmolality and hyponatremia; E87.2 Acidosis; N17.9 Acute kidney failure, unspecified; K31.819 Angiodysplasia of stomach and duodenum without bleeding; K26.9 Duodenal ulcer, unspecified as acute or chronic, without hemorrhage or perforation; F03.90 Unspecified dementia, unspecified severity, without behavioral disturbance, psychotic disturbance, mood disturbance, and anxiety; N18.3 Chronic kidney disease, stage 3 (moderate); I73.9 Peripheral vascular disease, unspecified; I12.9 Hypertensive chronic kidney disease with stage 1 through stage 4 chronic kidney disease, or unspecified chronic kidney disease; D50.0 Iron deficiency anemia secondary to blood loss (chronic); N40.0 Benign prostatic hyperplasia without lower urinary tract symptoms; K57.90 Diverticulosis of intestine, part unspecified, without perforation or abscess without bleeding; K59.00 Constipation, unspecified; I25.10 Atherosclerotic heart disease of native coronary artery without angina pectoris; M19.90 Unspecified osteoarthritis, unspecified site; I45.10 Unspecified right bundle-branch block; E78.5 Hyperlipidemia, unspecified; Z79.82 Long term (current) use of aspirin; Z79.02 Long term (current) use of antithrombotics/antiplatelets; Z79.899 Other long term (current) drug therapy; Z77.090 Contact with and (suspected) exposure to asbestos; Z85.46 Personal history of malignant neoplasm of prostate; Z85.828 Personal history of other malignant neoplasm of skin; Z90.49 Acquired absence of other specified parts of digestive tract; Z87.19 Personal history of other diseases of the digestive system; Z96.643 Presence of artificial hip joint, bilateral; Z95.820 Peripheral vascular angioplasty status with implants and grafts; Z87.39 Personal history of other diseases of the musculoskeletal system and connective tissue; Z98.42 Cataract extraction status, left eye; Z98.41 Cataract extraction status, right eye; Z98.890 Other specified postprocedural states; Z83.2 Family history of diseases of the blood and blood-forming organs and certain disorders involving the immune mechanism
CPT/HCPCS: 36415; 43248; 43255; 80048; 80053; 81003; 82272; 82607; 82746; 83540; 83550; 83735; 84484; 85025; 85610; 85730; 86850; 86900; 86901; 88305; 93005; 96361; 96374; 99285

== ENCOUNTER → 2020-03-28 | Outpatient (CLI) | payer MEDICARE ==
[2020-03-28 09:59] LABS: HCT 36.4 % (39.0-53.0); HGB 12.2 gm/dL (13.0-17.5); MCH 32.9 pg (25.0-35.0); MCHC 33.5 g/dL (31.0-37.0); MCV 98.4 fL (80.0-100.0); Mean Platelet Volume 7.5; Platelet Count 243 k/uL (150-450); RDW 13.5 % (11.5-15.5); WBC 6.2 k/uL (3.8-10.6)
[2020-03-28 10:29] LABS: Appearance,Urine Clear (Clear); Bilirubin,Urine Negative (Negative); Blood,Urine Negative (Negative); Color,Urine Yellow; Glucose,Urine (UA) Negative (Negative); Hyaline Casts,Urine 1 /lpf (0-2); Ketones,Urine Negative (Negative); Leukocyte Esterase,Urine Negative (Negative); Mucus,Urine Rare /hpf; Nitrite,Urine Negative (Negative); PH, Urine 5.5 (5.0-8.0); Protein,Urine 1+ (Negative); Specific Gravity,Urine 1.013 (1.001-1.035); Urobilinogen,Urine <2.0 mg/dL (<2.0)
[2020-03-28 10:32] LABS: Creatinine,Urine Random 68.4 mg/dL; Protein/Creatinine Ratio,Urine 0.819
[2020-03-28 15:39] LABS: % Iron Saturation 29.22 (15.00-50.00); African American GFR (CKD) 31.8 (60.0-200.0); Albumin 4.7 g/dL (3.80-4.90); Albumin/Globulin Ratio 2.24 (1.60-3.17); Anion Gap 12.1 mmol/L (4.00-12.00); BUN/Creat Ratio 20.95 Ratio (12.00-20.00); Calcium 9.7 mg/dL (8.7-10.3); Carbon Dioxide 22.9 mmol/L (21.6-31.8); Globulin 2.1 g/dL (1.6-3.3); Magnesium 1.8 mg/dL (1.5-2.4); Non-African American GFR(CKD) 27.5 (60.0-200.0); Phosphorus 3.9 mg/dL (2.4-5.1); Potassium 4.1 mmol/L (3.5-5.5); Total Bilirubin 0.5 mg/dL (0.2-1.2); Total Protein 6.8 g/dL (6.2-8.2); Uric Acid 5.7 mg/dL (3.7-8.7)
[2020-03-28 15:48] LABS: Ferritin 298.9 ng/mL (22.0-322.0)
== END | disposition home or self-care (01) ==
LOC: LABWHC1 09:09
PROVIDERS: ATTEND Internal Medicine
DX: N18.4 Chronic kidney disease, stage 4 (severe) (principal); D63.1 Anemia in chronic kidney disease; N39.0 Urinary tract infection, site not specified; E21.3 Hyperparathyroidism, unspecified; E55.9 Vitamin D deficiency, unspecified; M10.9 Gout, unspecified
CPT/HCPCS: 36415; 80053; 81001; 82306; 82570; 82728; 83540; 83550; 83735; 83970; 84100; 84156; 84550; 85027

== ENCOUNTER → 2020-09-17 | Outpatient (CLI) | payer MEDICARE ==
[2020-09-17 11:43] LABS: Appearance,Urine Clear (Clear); Bilirubin,Urine Negative (Negative); Blood,Urine Negative (Negative); Color,Urine Yellow; Glucose,Urine (UA) Negative (Negative); Ketones,Urine Negative (Negative); Leukocyte Esterase,Urine Negative (Negative); Nitrite,Urine Negative (Negative); PH, Urine 6.5 (5.0-8.0); Protein,Urine Trace (Negative); Specific Gravity,Urine 1.016 (1.001-1.035); Urobilinogen,Urine <2.0 mg/dL (<2.0)
[2020-09-17 12:48] LABS: Creatinine,Urine Random 84.8 mg/dL; Protein/Creatinine Ratio,Urine 0.342
[2020-09-17 15:57] LABS: HCT 35.7 % (39.6-50.0); HGB 11.7 g/dL (13.0-17.0); MCH 32.8 pg (27.0-32.0); MCHC 32.8 g/dL (32.0-37.0); Mean Platelet Volume 10.6 fL (9.5-12.2); Platelet Count 269 X 10*3/uL (140-440); RBC 3.57 X 10*6/uL (4.40-5.60); RDW 12.7 % (11.5-14.5); WBC 5.21 X 10*3/uL (4.50-10.00)
[2020-09-17 18:50] LABS: % Iron Saturation 34.2 (15.00-50.00); African American GFR (CKD) 28.5 (60.0-200.0); Albumin 4.5 g/dL (3.80-4.90); Albumin/Globulin Ratio 1.88 (1.60-3.17); BUN/Creat Ratio 18.7 Ratio (12.00-20.00); Calcium 10.1 mg/dL (8.7-10.3); Globulin 2.4 g/dL (1.6-3.3); Magnesium 1.7 mg/dL (1.5-2.4); Non-African American GFR(CKD) 24.6 (60.0-200.0); Phosphorus 3.6 mg/dL (2.4-5.1); Potassium 4.4 mmol/L (3.5-5.5); Total Bilirubin 0.4 mg/dL (0.2-1.2); Total Protein 6.9 g/dL (6.2-8.2); Uric Acid 6.6 mg/dL (3.7-8.7)
[2020-09-17 18:58] LABS: Ferritin 287.5 ng/mL (22.0-322.0)
== END | disposition home or self-care (01) ==
LOC: LABWHC1 10:37
PROVIDERS: ATTEND Nurse Practitioner Family
DX: N18.4 Chronic kidney disease, stage 4 (severe) (principal); R80.9 Proteinuria, unspecified; D64.9 Anemia, unspecified; N39.0 Urinary tract infection, site not specified; E55.9 Vitamin D deficiency, unspecified; M10.9 Gout, unspecified; N25.81 Secondary hyperparathyroidism of renal origin
CPT/HCPCS: 36415; 80053; 81003; 82306; 82570; 82728; 83540; 83550; 83735; 83970; 84100; 84156; 84550; 85027

== ENCOUNTER → 2020-11-15 | Outpatient (CLI) | payer MEDICARE ==
[2020-11-15 11:06] LABS: Appearance,Urine Clear (Clear); Bilirubin,Urine Negative (Negative); Blood,Urine Negative (Negative); Color,Urine Yellow; Glucose,Urine (UA) Negative (Negative); Ketones,Urine Negative (Negative); Leukocyte Esterase,Urine Negative (Negative); Nitrite,Urine Negative (Negative); Protein,Urine Trace (Negative); Specific Gravity,Urine 1.017 (1.001-1.035); Urobilinogen,Urine <2.0 mg/dL (<2.0)
[2020-11-15 14:52] LABS: HGB 11.1 g/dL (13.0-17.0); MCH 32.5 pg (27.0-32.0); MCHC 32.6 g/dL (32.0-37.0); MCV 99.4 fL (80.0-97.0); Mean Platelet Volume 10.7 fL (9.5-12.2); Platelet Count 247 X 10*3/uL (140-440); RBC 3.42 X 10*6/uL (4.40-5.60); RDW 12.3 % (11.5-14.5); WBC 5.17 X 10*3/uL (4.50-10.00)
[2020-11-15 17:37] LABS: % Iron Saturation 28.9 (15.00-50.00); African American GFR (CKD) 33.8 (60.0-200.0); Albumin 4.1 g/dL (3.80-4.90); Albumin/Globulin Ratio 1.71 (1.60-3.17); Anion Gap 10.6 mmol/L (4.00-12.00); Calcium 9.1 mg/dL (8.7-10.3); Carbon Dioxide 23.4 mmol/L (21.6-31.8); Globulin 2.4 g/dL (1.6-3.3); Magnesium 1.8 mg/dL (1.5-2.4); Non-African American GFR(CKD) 29.1 (60.0-200.0); Phosphorus 3.7 mg/dL (2.4-5.1); Potassium 4.4 mmol/L (3.5-5.5); Total Bilirubin 0.3 mg/dL (0.3-1.2); Total Protein 6.5 g/dL (6.2-8.2); Uric Acid 5.9 mg/dL (3.7-8.7)
[2020-11-15 17:46] LABS: Ferritin 298.8 ng/mL (22.0-322.0)
== END | disposition home or self-care (01) ==
LOC: LABWHC1 09:13
PROVIDERS: ATTEND Internal Medicine
DX: N18.4 Chronic kidney disease, stage 4 (severe) (principal); N39.0 Urinary tract infection, site not specified; N25.81 Secondary hyperparathyroidism of renal origin; E55.9 Vitamin D deficiency, unspecified; D64.9 Anemia, unspecified; M10.9 Gout, unspecified; R80.9 Proteinuria, unspecified
CPT/HCPCS: 36415; 80053; 81003; 82043; 82306; 82570; 82728; 83540; 83550; 83735; 83970; 84100; 84550; 85027

== ENCOUNTER 2021-03-04 22:55 | Observation (INO) | payer MEDICARE ==
--- NOTE | 2021-03-04 23:28 | ED ---
General Adult HPI - General Chief complaint: Weakness Stated complaint: Weakness Time Seen by Provider: 03/04/21 23:05 Source: patient, EMS Mode of arrival: EMS Limitations: no limitations - History of Present Illness Initial comments: 's patient is an 86-year-old man who is brought by ambulance to be evaluated for a constellation of symptoms. Most of the history is from the patient's . She states that he has underlying dementia. Over the past 2 weeks she has been taking less and less oral intake. She states that prior to 2 weeks ago he would be just a few bites of food but starting 2 weeks ago he was not really eating anything. He only takes a little bit of fluid. Tonight when patient's tried to get him to go to bed he was not walking. There does not appear to be focal weakness but he was not able to walk well. When I interview the patient she does not have any complaints. He denies pain. He denies dyspnea. Patient is not oriented. Onset/Timin -: week(s) Severity scale (1-10): 0 Improves with: none Worsens with: none Associated Symptoms: confusion, loss of appetite Treatments Prior to Arrival: none - Related Data Home Medications Medication Instructions Recorded Confirmed Atorvastatin [Lipitor] 80 mg PO HS 01/31/15 03/04/21 Clopidogrel Bisulfate [Clopidogrel] 75 mg PO W/BRKFST 01/31/15 03/04/21 Donepezil HCl [Aricept] 10 mg PO HS 09/17/15 03/04/21 Multivitamins, Thera [Multivitamin 1 tab PO W/SUPPER 10/30/19 03/04/21 (formulary)] Sodium Bicarbonate Tab 650 mg PO W/BRKFST 10/30/19 03/04/21 hydrALAZINE HCL [Apresoline] 75 mg PO AC-TID 11/28/19 03/04/21 Brinzolamide/Brimonidine Tart 1 drop LEFT EYE TID@0906,1500,2106 03/04/21 03/04/21 [Simbrinza 1%-0.2% Eye Drops] Folic Acid 0.4 mg PO HS 03/04/21 03/04/21 Mirtazapine [Remeron] 15 mg PO HS 03/04/21 03/04/21 Timolol 0.5% Ophth Soln [Timoptic 1 drop LEFT EYE BID@0900,2100 03/04/21 03/04/21 0.5% Ophth Soln] amLODIPine [Norvasc] 5 mg PO AC-BID 03/04/21 03/04/21 Previous Rx's Medication Instructions Recorded Pantoprazole [Protonix] 40 mg PO AC-BID #60 tablet. 12/02/19 Allergies Allergy/AdvReac Type Severity Reaction Status Date / Time No Known Allergies Allergy Verified 03/04/21 23:48 Review of Systems ROS Statement: Those systems with pertinent positive or pertinent negative responses have been documented in the HPI. ROS Other: All systems not noted in ROS Statement are negative. Constitutional: Reports: weakness. Denies: fever Respiratory: Denies: cough, dyspnea Cardiovascular: Denies: chest pain, syncope Gastrointestinal: Denies: abdominal pain, vomiting Musculoskeletal: Denies: back pain Neurological: Denies: headache Past Medical History Past Medical History: Cancer, Dementia, Hyperlipidemia, Hypertension, Memory Impairment, Osteoarthritis (OA), Prostate Disorder, Vascular Disorder Additional Past Medical History / Comment(s): Hx prostate and skin cancer; PAST ASBESTOS EXPOSURE. C/O Pain in Rt leg w/ walking. History of Any Multi-Drug Resistant Organisms: None Reported Past Surgical History: Appendectomy, Joint Replacement Additional Past Surgical History / Comment(s): 02/12/15 Total L hip arthroplasty. Exc skin CA face, mass removed from base of spine, vascular surgery lt leg, jabari cataracts, 6-13-16 TOTAL RT HIP, hemorrhoidectomy Past Anesthesia/Blood Transfusion Reactions: No Reported Reaction Past Psychological History: No Psychological Hx Reported Smoking Status: Never smoker Past Alcohol Use History: Occasional Past Drug Use History: None Reported - Past Family History Brother(s) Family Medical History: Deep Vein Thrombosis (DVT) Mother History Unknown: Yes Family Medical History: No Reported History Father Additional Family Medical History / Comment(s): AT AGE 50 General Exam Limitations: no limitations General appearance: alert, in no apparent distress, cachectic Head exam: Present: atraumatic, normocephalic Eye exam: Present: normal appearance, PERRL, EOMI. Absent: scleral icterus, conjunctival injection Neck exam: Present: normal inspection, full ROM Respiratory exam: Present: normal lung sounds bilaterally. Absent: respiratory distress, wheezes, rales, rhonchi, stridor Cardiovascular Exam: Present: regular rate, normal rhythm, normal heart sounds. Absent: systolic murmur, diastolic murmur, rubs, gallop GI/Abdominal exam: Present: soft. Absent: distended, tenderness, guarding, rebound, rigid, mass Extremities exam: Present: normal inspection, normal capillary refill. Absent: pedal edema, calf tenderness Back exam: Present: normal inspection. Absent: CVA tenderness (R), CVA tenderness (L) Neurological exam: Present: alert. Absent: oriented X3 (Patient is oriented to person only), CN II-XII intact, motor sensory deficit Skin exam: Present: warm, dry, intact, normal color. Absent: rash Course Vital Signs 03/04/21 03/05/21 22:57 03:58 Temperature 97.7 F Pulse Rate 61 73 Respiratory 18 17 Rate Blood Pressure 122/62 O2 Sat by Pulse 98 98 Oximetry EKG Findings - EKG Results: EKG: interpreted by ERMD, sinus rhythm (Rate 63 bpm), normal axis, normal ST/T - Blocks, Dolliver, Hypertrophy, ST Abn: AV and intraventricular conduction: right bundle branch block (fixed/intermittent, complete/incomplete) Medical Decision Making - Lab Data Result diagrams: 03/04/21 23:10 03/04/21 23:10 Lab Results 03/04/21 03/04/21 03/04/21 Range/Units 23:10 23:10 23:10 WBC 6.6 (3.8-10.6) k/uL RBC 3.55 L (4.30-5.90) m/uL Hgb 11.9 L (13.0-17.5) gm/dL Hct 35.7 L (39.0-53.0) % MCV 100.7 H (80.0-100.0) fL MCH 33.6 (25.0-35.0) pg MCHC 33.3 (31.0-37.0) g/dL RDW 11.8 (11.5-15.5) % Plt Count 180 (150-450) k/uL MPV 8.5 Neutrophils % 80 % Lymphocytes % 9 % Monocytes % 5 % Eosinophils % 4 % Basophils % 1 % Neutrophils # 5.3 (1.3-7.7) k/uL Lymphocytes # 0.6 L (1.0-4.8) k/uL Monocytes # 0.3 (0-1.0) k/uL Eosinophils # 0.3 (0-0.7) k/uL Basophils # 0.0 (0-0.2) k/uL PT 9.9 (9.0-12.0) sec INR 0.9 (<1.2) APTT 21.8 L (22.0-30.0) sec Sodium 133 L (137-145) mmol/L Potassium 4.0 (3.5-5.1) mmol/L Chloride 102 (98-107) mmol/L Carbon Dioxide 22 (22-30) mmol/L Anion Gap 9 mmol/L BUN 28 H (9-20) mg/dL Creatinine 1.63 H (0.66-1.25) mg/dL Est GFR (CKD-EPI)AfAm 43 (>60 ml/min/1.73 sqM) Est GFR (CKD-EPI)NonAf 37 (>60 ml/min/1.73 sqM) Glucose 109 H (74-99) mg/dL Plasma Lactic Acid Kaushal (0.7-2.0) mmol/L Calcium 8.7 (8.4-10.2) mg/dL Total Bilirubin 0.6 (0.2-1.3) mg/dL AST 53 (17-59) U/L ALT 17 (4-49) U/L Alkaline Phosphatase 87 (38-126) U/L Troponin I (0.000-0.034) ng/mL Total Protein 6.2 L (6.3-8.2) g/dL Albumin 3.3 L (3.5-5.0) g/dL Serum Alcohol <10 mg/dL 03/04/21 03/05/21 Range/Units 23:10 00:10 WBC (3.8-10.6) k/uL RBC (4.30-5.90) m/uL Hgb (13.0-17.5) gm/dL Hct (39.0-53.0) % MCV (80.0-100.0) fL MCH (25.0-35.0) pg MCHC (31.0-37.0) g/dL RDW (11.5-15.5) % Plt Count (150-450) k/uL MPV Neutrophils % % Lymphocytes % % Monocytes % % Eosinophils % % Basophils % % Neutrophils # (1.3-7.7) k/uL Lymphocytes # (1.0-4.8) k/uL Monocytes # (0-1.0) k/uL Eosinophils # (0-0.7) k/uL Basophils # (0-0.2) k/uL PT (9.0-12.0) sec INR (<1.2) APTT (22.0-30.0) sec Sodium (137-145) mmol/L Potassium (3.5-5.1) mmol/L Chloride (98-107) mmol/L Carbon Dioxide (22-30) mmol/L Anion Gap mmol/L BUN (9-20) mg/dL Creatinine (0.66-1.25) mg/dL Est GFR (CKD-EPI)AfAm (>60 ml/min/1.73 sqM) Est GFR (CKD-EPI)NonAf (>60 ml/min/1.73 sqM) Glucose (74-99) mg/dL Plasma Lactic Acid Kaushal 1.1 (0.7-2.0) mmol/L Calcium (8.4-10.2) mg/dL Total Bilirubin (0.2-1.3) mg/dL AST (17-59) U/L ALT (4-49) U/L Alkaline Phosphatase (38-126) U/L Troponin I 0.157 H* (0.000-0.034) ng/mL Total Protein (6.3-8.2) g/dL Albumin (3.5-5.0) g/dL Serum Alcohol mg/dL Disposition Clinical Impression: Altered mental status Disposition: ADMITTED IP TO THIS HOSP Condition: Poor Referrals: Sandra Ivey MD [Primary Care Provider] - 1-2 days
[2021-03-05] LABS: Basophils % (A) 1 %; Eosinophils # (A) 0.3 k/uL (0-0.7); Eosinophils % (A) 4 %; HCT 35.7 % (39.0-53.0); HGB 11.9 gm/dL (13.0-17.5); Lymphocytes # (A) 0.6 k/uL (1.0-4.8); Lymphocytes % (A) 9 %; MCH 33.6 pg (25.0-35.0); MCHC 33.3 g/dL (31.0-37.0); MCV 100.7 fL (80.0-100.0); Mean Platelet Volume 8.5; Monocytes # (A) 0.3 k/uL (0-1.0); Monocytes % (A) 5 %; Neutrophils # (A) 5.3 k/uL (1.3-7.7); Neutrophils % (A) 80 %; Platelet Count 180 k/uL (150-450); RBC 3.55 m/uL (4.30-5.90); RDW 11.8 % (11.5-15.5); WBC 6.6 k/uL (3.8-10.6)
--- NOTE | 2021-03-05 00:08 | CT ---
EXAMINATION TYPE: CT brain wo con DATE OF EXAM: 03/05/2021 COMPARISON: 11/24/2018 HISTORY: AMS CT DLP: 1076.4 mGycm Automated exposure control for dose reduction was used. Images of the brain obtained without contrast. There is cerebral cortical atrophy. There is no mass effect nor midline shift. There is no sign of in tracranial hemorrhage. There is some mild hypodensity in the periventricular white matter. The calvar ium is intact. Skull base is intact. IMPRESSION: Cerebral atrophy and chronic small vessel ischemia. No acute intracranial abnormality. No change.
--- NOTE | 2021-03-05 00:12 | XR ---
EXAMINATION TYPE: XR chest 1V DATE OF EXAM: 03/05/2021 COMPARISON: 10/30/2019 HISTORY: Chest pain TECHNIQUE: FINDINGS: Heart and mediastinum are normal. Lungs are clear. Diaphragm is normal. Bony thorax is inta ct thoracic aorta is atheromatous. IMPRESSION: No active cardiopulmonary disease. No change.
[2021-03-05 00:17] LABS: INR 0.9 (<1.2); Prothrombin Time 9.9 sec (9.0-12.0)
[2021-03-05 00:18] LABS: Partial Thromboplastin Time 21.8 sec (22.0-30.0)
[2021-03-05 00:25] LABS: ALT 17 U/L (4-49); AST 53 U/L (17-59); African American GFR (CKD) 43 (>60 ml/min/1.73 sqM); Albumin 3.3 g/dL (3.5-5.0); Alcohol <10 mg/dL; Alkaline Phosphatase 87 U/L (38-126); Anion Gap 9 mmol/L; Blood Urea Nitrogen 28 mg/dL (9-20); Calcium 8.7 mg/dL (8.4-10.2); Carbon Dioxide 22 mmol/L (22-30); Chloride 102 mmol/L (98-107); Glucose 109 mg/dL (74-99); Non-African American GFR(CKD) 37 (>60 ml/min/1.73 sqM); Sodium 133 mmol/L (137-145); Total Bilirubin 0.6 mg/dL (0.2-1.3); Total Protein 6.2 g/dL (6.3-8.2)
[2021-03-05] MEDS ORDERED: SODIUM CHLORIDE 0.9% 500 ML 500 ML IV STA (01:54)
[2021-03-05] MEDS ORDERED: NALOXONE 0.4 MG/ML 1 ML VIAL IV PRN (04:00)
[2021-03-05] MEDS ORDERED: ACETAMINOPHEN TAB 325 MG TAB PO PRN (04:00)
[2021-03-05] MEDS: SODIUM CHLORIDE 0.9% 1,000 ML IV SCH ×2 (05:11→18:27)
--- NOTE | 2021-03-05 05:43 | P.HPIM ---
History of Present Illness H&P Date: 03/05/21 Patient is an 86-year-old male with a PMH of dementia, hypertension, hyperlipidemia, and glaucoma who was brought into the emergency room by his and daughter due to poor appetite. The family notes that the patient has not been eating or drinking much over the past several weeks. They note that as his dementia worsens, he has been sleeping for the majority of the time during the day, has been interacting less, and has been getting more forgetful. They note that despite their best efforts at feeding him, the patient refuses to eat. The patient was pleasant and noted that he did not have any active complaints. He denied chest discomfort, shortness of breath, fever, chills, cough, nausea, vomiting, abdominal pain. The family does not wish for the patient to be placed in a facility and one for him to be discharged home. CT brain and chest x-ray were unremarkable. EKG revealed normal sinus rhythm at 63 bpm with a right bundle branch block. Laboratory evaluation was remarkable for BUN of 28, creatinine 1.63, troponin of 0.157. Review of systems: Pertinent positives and negatives as discussed in HPI, a complete review of systems was performed and all other systems are negative. Physical examination: General: non toxic, no distress, appears at stated age, normal weight Derm: no unusual rashes/lesions no unusual ecchymoses, warm, dry Head: atraumatic, normocephalic, symmetric Eyes: EOMI, no lid lag, anicteric sclera, pupils equal round reactive to light ENT: Nose and ears atraumatic, no thrush, no pharyngeal erythema Neck: No thyromegaly, no cervical lymphadenopathy, trachea midline, supple Mouth: no lip lesion, mucus membranes moist Cardiovascular: S1S2 reg, no murmur, positive posterior tibial pulse bilateral, no edema, capillary refill less than 2 seconds Lungs: CTA bilateral, no rhonchi, no rales , no accessory muscle use Abdominal: soft, nontender to palpation, no guarding, no appreciable organomegaly, normal bowel sounds Ext: no gross muscle atrophy, muscle strength 5 out of 5 in all 4 extremities grossly, no contractures, Neuro: CN II-XI grossly intact, light touch intact all 4 extremities, finger to nose within normal limits, Psych: Alert, oriented only to person and knows that he is in the hospital, does not know the year or the month, appropriate affect Assessment/plan Elevated troponin -Patient denying chest discomfort or shortness of breath -Likely due to ongoing acute kidney injury with advanced age -Cardiac monitoring -Trend for now Acute kidney injury on chronic kidney disease -Likely secondary to poor oral intake -IV fluids and monitor BMP Anorexia -Discussed with the family in detail regarding this likely being a symptom of worsening dementia -Obtain TSH and B12 levels DVT prophylaxis -Heparin subcu The patient is admitted with an anticipated less than 2 midnight stay for evaluation of elevated troponin CODE STATUS: Full Code Discussed with: Patient, daughter, Anticipated discharge date: in am Anticipated discharge place: Home Past Medical History Past Medical History: Cancer, Dementia, Hyperlipidemia, Hypertension, Memory Impairment, Osteoarthritis (OA), Prostate Disorder, Vascular Disorder Additional Past Medical History / Comment(s): Hx prostate and skin cancer; PAST ASBESTOS EXPOSURE. C/O Pain in Rt leg w/ walking. History of Any Multi-Drug Resistant Organisms: None Reported Past Surgical History: Appendectomy, Joint Replacement Additional Past Surgical History / Comment(s): 02/12/15 Total L hip arthroplasty. Exc skin CA face, mass removed from base of spine, vascular surgery lt leg, jabari cataracts, 09-24-15 TOTAL RT HIP, hemorrhoidectomy Past Anesthesia/Blood Transfusion Reactions: No Reported Reaction Past Psychological History: No Psychological Hx Reported Smoking Status: Never smoker Past Alcohol Use History: Occasional Past Drug Use History: None Reported - Past Family History Brother(s) Family Medical History: Deep Vein Thrombosis (DVT) Mother History Unknown: Yes Family Medical History: No Reported History Father Additional Family Medical History / Comment(s): AT AGE 50 Medications and Allergies Home Medications Medication Instructions Recorded Confirmed Type Atorvastatin [Lipitor] 80 mg PO HS 01/31/15 03/04/21 History Clopidogrel Bisulfate [Clopidogrel] 75 mg PO W/BRKFST 01/31/15 03/04/21 History Donepezil HCl [Aricept] 10 mg PO HS 09/17/15 03/04/21 History Multivitamins, Thera [Multivitamin 1 tab PO W/SUPPER 10/30/19 03/04/21 History (formulary)] Sodium Bicarbonate Tab 650 mg PO W/BRKFST 10/30/19 03/04/21 History hydrALAZINE HCL [Apresoline] 75 mg PO AC-TID 11/28/19 03/04/21 History Pantoprazole [Protonix] 40 mg PO AC-BID #60 tablet. 12/02/19 03/04/21 Rx Brinzolamide/Brimonidine Tart 1 drop LEFT EYE TID@0906,1500,2106 03/04/21 03/04/21 History [Simbrinza 1%-0.2% Eye Drops] Folic Acid 0.4 mg PO HS 03/04/21 03/04/21 History Mirtazapine [Remeron] 15 mg PO HS 03/04/21 03/04/21 History Timolol 0.5% Ophth Soln [Timoptic 1 drop LEFT EYE BID@0900,2100 03/04/21 1 History 0.5% Ophth Soln] amLODIPine [Norvasc] 5 mg PO AC-BID 03/04/21 03/04/21 History Allergies Allergy/AdvReac Type Severity Reaction Status Date / Time No Known Allergies Allergy Verified 03/04/21 23:48 Physical Exam Vitals: Vital Signs Temp Pulse Resp BP Pulse Ox 03/05/21 03:58 73 17 122/62 98 03/04/21 22:57 97.7 F 61 18 98 Intake and Output 03/04/21 03/04/21 03/05/21 14:59 22:59 06:59 Other: Weight 81.647 kg Results CBC & Chem 7: 03/04/21 23:10 03/04/21 23:10 Labs: Abnormal Lab Results - Last 24 Hours (Table) 03/04/21 03/04/21 03/04/21 Range/Units 23:10 23:10 23:10 RBC 3.55 L (4.30-5.90) m/uL Hgb 11.9 L (13.0-17.5) gm/dL Hct 35.7 L (39.0-53.0) % MCV 100.7 H (80.0-100.0) fL Lymphocytes # 0.6 L (1.0-4.8) k/uL APTT 21.8 L (22.0-30.0) sec Sodium 133 L (137-145) mmol/L BUN 28 H (9-20) mg/dL Creatinine 1.63 H (0.66-1.25) mg/dL Glucose 109 H (74-99) mg/dL Troponin I (0.000-0.034) ng/mL Total Protein 6.2 L (6.3-8.2) g/dL Albumin 3.3 L (3.5-5.0) g/dL 03/04/21 Range/Units 23:10 RBC (4.30-5.90) m/uL Hgb (13.0-17.5) gm/dL Hct (39.0-53.0) % MCV (80.0-100.0) fL Lymphocytes # (1.0-4.8) k/uL APTT (22.0-30.0) sec Sodium (137-145) mmol/L BUN (9-20) mg/dL Creatinine (0.66-1.25) mg/dL Glucose (74-99) mg/dL Troponin I 0.157 H* (0.000-0.034) ng/mL Total Protein (6.3-8.2) g/dL Albumin (3.5-5.0) g/dL
[2021-03-05] MEDS ORDERED: hydrALAZINE HCL 25 MG TAB PO SCH (07:30)
[2021-03-05] MEDS: PANTOPRAZOLE 40 MG TABLET PO SCH ×2 (09:03→16:55)
[2021-03-05] MEDS: CLOPIDOGREL 75 MG TAB PO SCH (09:03)
[2021-03-05] MEDS: HEPARIN SODIUM,PORCINE/PF 5,000 UNIT/0.5 ML SYRINGE SQ SCH ×3 (09:03→21:06)
[2021-03-05] MEDS: SODIUM BICARBONATE TAB 650 MG TAB PO SCH (10:22)
[2021-03-05] MEDS: TIMOLOL 0.5% OPHTH DROPS 5 ML BTL LEFT EYE SCH ×2 (10:22→21:07)
[2021-03-05] MEDS ORDERED: SODIUM CHLORIDE 0.9% 1,000 ML IV ONE (11:16)
[2021-03-05] MEDS: NON FORMULARY DRUG (Brinzolamide/Brimonidine Tart [Simbrinza 1%-0.2% Eye Drops] 8 ML Ml) LEFT EYE SCH ×3 (11:54→21:07)
[2021-03-05 15:07] LABS: Appearance,Urine Clear (Clear); Bacteria,Urine Rare /hpf; Bilirubin,Urine Negative (Negative); Blood,Urine Moderate (Negative); Color,Urine Yellow; Glucose,Urine (UA) Negative (Negative); Ketones,Urine 1+ (Negative); Leukocyte Esterase,Urine Negative (Negative); Mucus,Urine Rare /hpf; Nitrite,Urine Negative (Negative); Protein,Urine Trace (Negative); RBC,Urine >182 /hpf (0-5); Specific Gravity,Urine 1.016 (1.001-1.035); Squamous Epithelial Cell,Urine <1 /hpf (0-4); Urobilinogen,Urine <2.0 mg/dL (<2.0); WBC,Urine 9 /hpf (0-5)
--- NOTE | 2021-03-05 15:40 | P.PN ---
Progress Note - Text Progress Note Date: 03/05/21 Advance Care Plan I spoke with patient's and daughter at bedside today for 25 minutes with the goal of advance care planning due to his advanced dementia. Discussion: We broadly discussed patient's advanced dementia leading to anorexia and weight loss. We discussed that this represents the latter stages of dementia and caring for him at this time includes supportive care - frequent re-direction, maintaining a schedule, and frequent reminders to eat and drink. We discussed targets for nutrition and water including 3 meals a day with ensure or boost supplements, as well as 1.5-2L of water daily. We discussed the status of his kidneys and the stress induced injury to his heart this admission and we concluded that patient would not want aggressive work up or intervention. We further agreed that patient's code status should be DNR/DNI.
[2021-03-05] MEDS: MULTIVITAMINS, THERA 1 EACH TAB PO SCH (16:55)
--- NOTE | 2021-03-05 18:27 | US ---
EXAMINATION TYPE: US kidneys/renal and bladder DATE OF EXAM: 03/05/2021 COMPARISON: NONE CLINICAL HISTORY: UTI in male, gross hematuria. EXAM MEASUREMENTS: Right Kidney: 7.0 x 3.5 x 4.2 cm Left Kidney: 8.8 x 4.0 x 4.6 cm There is no evidence of a discrete renal mass. There is no hydronephrosis. There is no evidence of a bladder mass. Irregular enlarged prostate. Bladder: wnl Bilateral Jets seen: Yes Prominent prostate 4.0 x 4.3 x 4.5 cm IMPRESSION: No evidence of renal mass or obstruction. Small kidneys.
[2021-03-05] MEDS: ATORVASTATIN 80 MG TAB PO SCH (21:06)
[2021-03-05] MEDS: MIRTAZAPINE 15 MG TAB PO SCH (21:06)
[2021-03-05] MEDS: DONEPEZIL 10 MG TAB PO SCH (21:06)
[2021-03-06] MEDS: CLOPIDOGREL 75 MG TAB PO SCH (08:03)
[2021-03-06] MEDS: PANTOPRAZOLE 40 MG TABLET PO SCH ×2 (08:03→18:21)
[2021-03-06] MEDS: HEPARIN SODIUM,PORCINE/PF 5,000 UNIT/0.5 ML SYRINGE SQ SCH ×2 (08:04→18:21)
[2021-03-06] MEDS: SODIUM BICARBONATE TAB 650 MG TAB PO SCH (08:04)
[2021-03-06] MEDS: TIMOLOL 0.5% OPHTH DROPS 5 ML BTL LEFT EYE SCH ×2 (08:05→21:13)
[2021-03-06 08:24] VITALS: RESP 16
[2021-03-06 09:02] LABS: Basophils % (A) 1 %; Eosinophils # (A) 0.3 k/uL (0-0.7); Eosinophils % (A) 4 %; HCT 32.5 % (39.0-53.0); HGB 10.6 gm/dL (13.0-17.5); Lymphocytes # (A) 0.8 k/uL (1.0-4.8); Lymphocytes % (A) 12 %; MCH 33.4 pg (25.0-35.0); MCHC 32.6 g/dL (31.0-37.0); MCV 102.6 fL (80.0-100.0); Mean Platelet Volume 8.1; Monocytes # (A) 0.3 k/uL (0-1.0); Monocytes % (A) 4 %; Neutrophils # (A) 5.5 k/uL (1.3-7.7); Neutrophils % (A) 78 %; Platelet Count 162 k/uL (150-450); RBC 3.17 m/uL (4.30-5.90); RDW 11.9 % (11.5-15.5)
[2021-03-06 09:16] LABS: African American GFR (CKD) 46 (>60 ml/min/1.73 sqM); Anion Gap 8 mmol/L; Blood Urea Nitrogen 21 mg/dL (9-20); Calcium 8.4 mg/dL (8.4-10.2); Carbon Dioxide 23 mmol/L (22-30); Chloride 105 mmol/L (98-107); Glucose 89 mg/dL (74-99); Magnesium 1.8 mg/dL (1.6-2.3); Non-African American GFR(CKD) 40 (>60 ml/min/1.73 sqM); Potassium 4.1 mmol/L (3.5-5.1); Sodium 136 mmol/L (137-145)
[2021-03-06] MEDS ORDERED: MORPHINE SULFATE 2 MG/ML SYRINGE IVP STA (09:30)
[2021-03-06] MEDS ORDERED: TAMSULOSIN 0.4 MG CAP.ER.24H PO SCH (09:45)
[2021-03-06] MEDS: NON FORMULARY DRUG (Brinzolamide/Brimonidine Tart [Simbrinza 1%-0.2% Eye Drops] 8 ML Ml) LEFT EYE SCH ×3 (09:57→21:14)
[2021-03-06] MEDS: SODIUM CHLORIDE 0.9% 1,000 ML IV SCH ×2 (11:22→19:38)
[2021-03-06 11:29] VITALS: BMI 26.6
--- NOTE | 2021-03-06 13:35 | P.PN ---
Subjective Progress Note Date: 03/06/21 Patient has no new complaints today. Overnight he had a significant amount of bloody urine after attempting straight cath. Patient's renal ultrasound demonstrated a large prostate, but normal kidneys without hydronephrosis or hydroureter. Patient continues to have diminished oral intake and poor nutrit ional status, but interacting much better with family. Objective - Vital Signs Vital signs: Vital Signs Temp 98.6 F 03/06/21 07:00 Pulse 68 03/06/21 07:00 Resp 16 03/06/21 07:00 BP 125/60 03/06/21 07:00 Pulse Ox 96 03/06/21 07:00 Intake & Output 03/05/21 03/06/21 03/06/21 18:59 06:59 18:59 Intake Total 118 Output Total 300 Balance -182 Weight 81.647 kg Intake: Oral 118 Output: Urine 300 Other: Voiding Method Urinal Urinal Diaper Diaper # Voids 2 - Exam Gen: awake, thin, cachectic HEENT: normocephalic, atraumatic, good hearing acuity, moist mucous membranes Resp: good air exchange, breathing comfortably with no accessory muscle use, clear to auscultation bilaterally CVS: good distal perfusion x 4, regular rate and rhythm without murmurs GI: soft, NTTP, ND : no SPT, no CVAT, wilcox catheter not present MSK: no pitting edema, no clubbing Neuro: non-focal, moving all extremities Psych: cooperative, euthymic mood - Labs CBC & Chem 7: 03/06/21 08:36 03/06/21 08:36 Labs: Abnormal Lab Results - Last 24 Hours (Table) 03/04/21 03/06/21 03/06/21 Range/Units 23:05 08:36 08:36 RBC 3.17 L (4.30-5.90) m/uL Hgb 10.6 L (13.0-17.5) gm/dL Hct 32.5 L (39.0-53.0) % MCV 102.6 H (80.0-100.0) fL Lymphocytes # 0.8 L (1.0-4.8) k/uL Sodium 136 L (137-145) mmol/L BUN 21 H (9-20) mg/dL Creatinine 1.53 H (0.66-1.25) mg/dL Urine Protein Trace H (Negative) Urine Ketones 1+ H (Negative) Urine Blood Moderate H (Negative) Urine RBC >182 H (0-5) /hpf Urine WBC 9 H (0-5) /hpf Urine Bacteria Rare H (None) /hpf Urine Mucus Rare H (None) /hpf Microbiology - Last 24 Hours (Table) 03/05/21 00:10 Blood Culture - Preliminary Blood No Growth after 24 hours 03/05/21 00:10 Blood Culture - Preliminary Blood No Growth after 24 hours Assessment and Plan Assessment: Elevated troponin -Patient denying chest discomfort or shortness of breath -Likely due to ongoing acute kidney injury with advanced age -Cardiac monitoring -Trend for now Acute kidney injury on chronic kidney disease, improving Hematuria -Likely secondary to poor oral intake -IV fluids and monitor BMP -Urology consult Anorexia -Discussed with the family in detail regarding this likely being a symptom of worsening dementia -Obtain TSH and B12 levels -Nutrition consult DVT prophylaxis -Heparin subcu CODE STATUS: DO NOT RESUSCITATE Discussed with: Patient, daughters, Anticipated discharge place: Home
--- NOTE | 2021-03-06 17:59 | P.GSCN ---
History of Present Illness Consult date: 03/06/21 Reason for Consult: Gross hematuria Requesting physician: Bhavna Newton History of present illness: Patient is an 86-year-old male with a history of prostate cancer, treated with radiation therapy approximately 15 years ago. His PSA level last month was undetectable. He also has a history of dementia, hypertension, hyperlipidemia, and glaucoma. He was brought to the emergency room by his and daughter due to poor appetite. They have also noted worsened dementia and fatigue. He did not experience any hematuria at home. He was voiding infrequently, presumably due to his minimal oral intake, but was not experiencing any difficulty voiding. He was straight catheterized to obtain a urine specimen, resulting in bleeding. Attempts to place a Tracy catheter have exacerbated the bleeding. He now has h ematuria with clots. He denies voiding difficulty. Review of Systems - Constitutional Reports anorexia, Reports weakness, Denies chills, Denies fever - Gastrointestinal Denies abdominal pain, Denies nausea, Denies vomiting - Genitourinary Reports as per HPI Past Medical History Past Medical History: Cancer, Dementia, Hyperlipidemia, Hypertension, Memory Impairment, Osteoarthritis (OA), Prostate Disorder, Vascular Disorder Additional Past Medical History / Comment(s): Hx prostate and skin cancer; PAST ASBESTOS EXPOSURE. C/O Pain in Rt leg w/ walking. History of Any Multi-Drug Resistant Organisms: None Reported Past Surgical History: Appendectomy, Joint Replacement Additional Past Surgical History / Comment(s): 02/12/15 Total L hip arthroplasty. Exc skin CA face, mass removed from base of spine, vascular surgery lt leg, jabari cataracts, 6-13-16 TOTAL RT HIP, hemorrhoidectomy Past Anesthesia/Blood Transfusion Reactions: No Reported Reaction Past Psychological History: No Psychological Hx Reported Smoking Status: Never smoker Past Alcohol Use History: Occasional Past Drug Use History: None Reported - Past Family History Brother(s) Family Medical History: Deep Vein Thrombosis (DVT) Mother History Unknown: Yes Family Medical History: No Reported History Father Additional Family Medical History / Comment(s): AT AGE 50 Medications and Allergies Home Medications Medication Instructions Recorded Confirmed Type Atorvastatin [Lipitor] 80 mg PO HS 01/31/15 03/04/21 History Clopidogrel Bisulfate [Clopidogrel] 75 mg PO W/BRKFST 01/31/15 03/04/21 History Donepezil HCl [Aricept] 10 mg PO HS 09/17/15 03/04/21 History Multivitamins, Thera [Multivitamin 1 tab PO W/SUPPER 10/30/19 03/04/21 History (formulary)] Sodium Bicarbonate Tab 650 mg PO W/BRKFST 10/30/19 03/04/21 History hydrALAZINE HCL [Apresoline] 75 mg PO AC-TID 11/28/19 03/04/21 History Pantoprazole [Protonix] 40 mg PO AC-BID #60 tablet. 12/02/19 03/04/21 Rx Brinzolamide/Brimonidine Tart 1 drop LEFT EYE TID@0906,1500,2106 03/04/21 History [Simbrinza 1%-0.2% Eye Drops] Folic Acid 0.4 mg PO HS 03/04/21 03/04/21 History Mirtazapine [Remeron] 15 mg PO HS 03/04/21 03/04/21 History Timolol 0.5% Ophth Soln [Timoptic 1 drop LEFT EYE BID@0900,2100 03/04/21 03/04/21 History 0.5% Ophth Soln] amLODIPine [Norvasc] 5 mg PO AC-BID 03/04/21 03/04/21 History Cefdinir 300 mg PO Q12HR #10 cap 03/06/21 Rx Allergies Allergy/AdvReac Type Severity Reaction Status Date / Time No Known Allergies Allergy Verified 03/04/21 23:48 Surgical - Exam Vital Signs Temp Pulse Resp Pulse Ox 97.7 F 61 18 98 03/04/21 22:57 03/04/21 22:57 03/04/21 22:57 03/04/21 22:57 - General well developed, well nourished, no distress - Respiratory normal respiratory effort - Abdomen Abdomen: soft, non tender, no guarding, no rigid, no rebound - Genitourinary normal penis with no external lesions, testicles non-tender - Psychiatric oriented to time, oriented to person, oriented to place, speech is normal, memory intact Results - Labs 03/06/21 08:36 03/06/21 08:36 Abnormal Lab Results - Last 24 Hours (Table) 03/06/21 03/06/21 Range/Units 08:36 08:36 RBC 3.17 L (4.30-5.90) m/uL Hgb 10.6 L (13.0-17.5) gm/dL Hct 32.5 L (39.0-53.0) % MCV 102.6 H (80.0-100.0) fL Lymphocytes # 0.8 L (1.0-4.8) k/uL Sodium 136 L (137-145) mmol/L BUN 21 H (9-20) mg/dL Creatinine 1.53 H (0.66-1.25) mg/dL Microbiology - Last 24 Hours (Table) 03/05/21 00:10 Blood Culture - Preliminary Blood No Growth after 24 hours 03/05/21 00:10 Blood Culture - Preliminary Blood No Growth after 24 hours Diabetes panel 03/06/21 Range/Units 08:36 Sodium 136 L (137-145) mmol/L Potassium 4.1 (3.5-5.1) mmol/L Chloride 105 (98-107) mmol/L Carbon Dioxide 23 (22-30) mmol/L BUN 21 H (9-20) mg/dL Creatinine 1.53 H (0.66-1.25) mg/dL Glucose 89 (74-99) mg/dL Calcium 8.4 (8.4-10.2) mg/dL Thyroid panel 03/05/21 Range/Units 01:01 TSH 4.570 (0.350-5.500) uIU/mL Calcium panel 03/06/21 Range/Units 08:36 Calcium 8.4 (8.4-10.2) mg/dL Pituitary panel 03/05/21 03/06/21 Range/Units 01:01 08:36 Sodium 136 L (137-145) mmol/L Potassium 4.1 (3.5-5.1) mmol/L Chloride 105 (98-107) mmol/L Carbon Dioxide 23 (22-30) mmol/L BUN 21 H (9-20) mg/dL Creatinine 1.53 H (0.66-1.25) mg/dL Glucose 89 (74-99) mg/dL Calcium 8.4 (8.4-10.2) mg/dL TSH 4.570 (0.350-5.500) uIU/mL Adrenal panel 03/06/21 Range/Units 08:36 Sodium 136 L (137-145) mmol/L Potassium 4.1 (3.5-5.1) mmol/L Chloride 105 (98-107) mmol/L Carbon Dioxide 23 (22-30) mmol/L BUN 21 H (9-20) mg/dL Creatinine 1.53 H (0.66-1.25) mg/dL Glucose 89 (74-99) mg/dL Calcium 8.4 (8.4-10.2) mg/dL - Imaging US - kidney/bladder: report reviewed Assessment and Plan (1) Gross hematuria Current Visit: Yes Status: Acute Code(s): R31.0 - GROSS HEMATURIA SNOMED Code(s): 420427445 (2) Malignant neoplasm of prostate Current Visit: Yes Status: Acute Code(s): C61 - MALIGNANT NEOPLASM OF PROSTATE SNOMED Code(s): 220044258 Plan: I had a lengthy discussion with the patient and his family. Based on the undetectable PSA level, it is felt that his prostate cancer is cured. The hematuria is iatrogenic, as he had no hematuria prior to catheterization. Bladder scan has shown no evidence of urinary retention. It would be my recommendation that he not be catheterized, as catheter trauma can only worsen the hematuria. I would recommend catheter placement only if he develops urinary retention. Hydration is important, as this will help to reduce the risk of clot formation. Discontinuation of heparin would also reduce the risk of ongoing hematuria. I do not feel that he should receive tamsulosin, as this can cause weakness, lightheadedness, and dizziness which may further exacerbate his primary symptomatology. As stated, he denies difficulty voiding and the family made the observation that he was voiding infrequently prior to admission, and I attribute this to oliguria due to his poor oral intake. Time with Patient: Greater than 30
[2021-03-06] MEDS: MULTIVITAMINS, THERA 1 EACH TAB PO SCH (18:21)
[2021-03-06] MEDS: MIRTAZAPINE 15 MG TAB PO SCH (21:13)
[2021-03-06] MEDS: ATORVASTATIN 80 MG TAB PO SCH (21:13)
[2021-03-06] MEDS: DONEPEZIL 10 MG TAB PO SCH (21:13)
[2021-03-07] MEDS: HEPARIN SODIUM,PORCINE/PF 5,000 UNIT/0.5 ML SYRINGE SQ SCH ×2 (00:53→09:16)
[2021-03-07 07:29] VITALS: BP 126/53; PULSE 68; TEMP 98.3
[2021-03-07 09:08] LABS: Basophils # (A) 0.05 X 10*3/uL (0.00-0.10); Basophils % (A) 0.9 %; Eosinophils # (A) 0.21 X 10*3/uL (0.04-0.35); Eosinophils % (A) 3.7 %; HCT 28.5 % (39.6-50.0); HGB 9.1 g/dL (13.0-17.0); Lymphocytes # (A) 0.69 X 10*3/uL (0.90-5.00); Lymphocytes % (A) 12.2 %; MCH 32.5 pg (27.0-32.0); MCHC 31.9 g/dL (32.0-37.0); MCV 101.8 fL (80.0-97.0); Mean Platelet Volume 11.4 fL (9.5-12.2); Monocytes # (A) 0.38 X 10*3/uL (0.20-1.00); Monocytes % (A) 6.7 %; Neutrophils % (A) 76.1 %; Platelet Count 146 X 10*3/uL (140-440); RDW 11.9 % (11.5-14.5); WBC 5.65 X 10*3/uL (4.50-10.00)
[2021-03-07] MEDS: PANTOPRAZOLE 40 MG TABLET PO SCH (09:16)
[2021-03-07] MEDS: CLOPIDOGREL 75 MG TAB PO SCH (09:16)
[2021-03-07] MEDS: SODIUM BICARBONATE TAB 650 MG TAB PO SCH (09:16)
[2021-03-07] MEDS: TIMOLOL 0.5% OPHTH DROPS 5 ML BTL LEFT EYE SCH (09:19)
[2021-03-07] MEDS: SODIUM CHLORIDE 0.9% 1,000 ML IV SCH (09:20)
[2021-03-07] MEDS: NON FORMULARY DRUG (Brinzolamide/Brimonidine Tart [Simbrinza 1%-0.2% Eye Drops] 8 ML Ml) LEFT EYE SCH (09:20)
[2021-03-07 10:15] LABS: Magnesium 1.7 mg/dL (1.5-2.4)
[2021-03-07 10:22] LABS: African American GFR (CKD) 51.6 (60.0-200.0); Anion Gap 10.8 mmol/L (10.00-18.00); BUN/Creat Ratio 12.71 Ratio (12.00-20.00); Blood Urea Nitrogen 17.8 mg/dL (9.0-27.0); Calcium 8.1 mg/dL (8.7-10.3); Carbon Dioxide 20.2 mmol/L (20.0-27.5); Non-African American GFR(CKD) 44.5 (60.0-200.0); Potassium 3.9 mmol/L (3.5-5.5)
--- NOTE | 2021-03-07 11:58 | P.PN ---
Progress Note - Text Progress Note Date: 03/07/21 The patient appears more alert today. He is afebrile with stable vital signs. He is voiding without difficulty. The urine is mendez in color. He is urologically stable for discharge and will follow-up with me as needed.
--- NOTE | 2021-03-07 12:48 | P.DS ---
Providers Date of admission: 03/05/21 04:00 Expected date of discharge: 03/07/21 Attending physician: Danie Courtney MD Consults: 03/06/21 08:27 Consult Physician Routine Consulting Provider: Kedar Alvarado Consult Reason/Comments: gross hematuria, blood clots Do you want consulting provider notified?: Yes Primary care physician: Sandra Ivey Hospital Course: Acute kidney injury on chronic kidney disease, improving Hematuria -Likely secondary to poor oral intake, but this improved with IVF. Hematuria was secondary to traumatic straight cath, but this cleared up by the day of discharge. Urology was consulted and recommended no further attempts at catheterization, and they recommended against flomax. Pt had several bladder scans while hospitalized and never demonstrated PVR of > 200. Renal US done during admission was negative for hydronephrosis/ureter, or stones. -IV fluids and monitor BMP -Urology consult Elevated troponin -Patient denied chest discomfort or shortness of breath -Attributed to ongoing acute kidney injury with advanced age Anorexia -Discussed with the family in detail regarding this likely being a symptom of worsening dementia -Obtain TSH and B12 levels which were within normal range, and elevated, respectively. -Nutrition consulted and provided family with education regarding target high protein high calorie foods and hydration goals. -I discussed with the family that should patient continue losing weight and have no appetite, then we should consider hospice at home, but in the meantime, they are amenable to palliative care outpatient consultation as well as home health care services. Assessment: Gen: awake, thin, cachectic HEENT: normocephalic, atraumatic, good hearing acuity, moist mucous membranes Resp: good air exchange, breathing comfortably with no accessory muscle use, clear to auscultation bilaterally CVS: good distal perfusion x 4, regular rate and rhythm without murmurs GI: soft, NTTP, ND : no SPT, no CVAT, wilcox catheter not present MSK: no pitting edema, no clubbing Neuro: non-focal, moving all extremities Psych: cooperative, euthymic mood Patient Condition at Discharge: Poor Plan - Discharge Summary Discharge Rx Participant: No New Discharge Prescriptions: New Cefdinir 300 mg PO Q12HR #10 cap Continue Atorvastatin [Lipitor] 80 mg PO HS Clopidogrel Bisulfate [Clopidogrel] 75 mg PO W/BRKFST Donepezil HCl [Aricept] 10 mg PO HS Multivitamins, Thera [Multivitamin (formulary)] 1 tab PO W/SUPPER Sodium Bicarbonate Tab 650 mg PO W/BRKFST Pantoprazole [Protonix] 40 mg PO AC-BID #60 tablet. Brinzolamide/Brimonidine Tart [Simbrinza 1%-0.2% Eye Drops] 1 drop LEFT EYE TID@0906,1500,2106 Timolol 0.5% Ophth Soln [Timoptic 0.5% Ophth Soln] 1 drop LEFT EYE BID@ 0900,2100 Folic Acid 0.4 mg PO HS Mirtazapine [Remeron] 15 mg PO HS Discontinued hydrALAZINE HCL [Apresoline] 75 mg PO AC-TID amLODIPine [Norvasc] 5 mg PO AC-BID Discharge Medication List Atorvastatin [Lipitor] 80 mg PO HS 01/31/15 [History] Clopidogrel Bisulfate [Clopidogrel] 75 mg PO W/BRKFST 01/31/15 [History] Donepezil HCl [Aricept] 10 mg PO HS 09/17/15 [History] Multivitamins, Thera [Multivitamin (formulary)] 1 tab PO W/SUPPER 10/30/19 [History] Sodium Bicarbonate Tab 650 mg PO W/BRKFST 10/30/19 [History] Pantoprazole [Protonix] 40 mg PO AC-BID #60 tablet. 12/02/19 [Rx] Brinzolamide/Brimonidine Tart [Simbrinza 1%-0.2% Eye Drops] 1 drop LEFT EYE TID@0906,1500,2106 03/04/21 [History] Folic Acid 0.4 mg PO HS 03/04/21 [History] Mirtazapine [Remeron] 15 mg PO HS 03/04/21 [History] Timolol 0.5% Ophth Soln [Timoptic 0.5% Ophth Soln] 1 drop LEFT EYE BID@0900,2100 03/04/21 [History] Cefdinir 300 mg PO Q12HR #10 cap 03/06/21 [Rx] Follow up Appointment(s)/Referral(s): Sandra Ievy MD [Primary Care Provider] - 1-2 days Activity/Diet/Wound Care/Special Instructions: activity as tolerated oral intake as tolerated, increase fluid intake Discharge Disposition: HOME WITH HOME HEALTH SERVICES
== END 2021-03-07 12:25 | disposition home health service (06) ==
LOC: EC 22:55 → 6NMEDSUR 03-05 04:00
PROVIDERS: ADMIT Internal Medicine; ATTEND Internal Medicine
DX: N17.9 Acute kidney failure, unspecified (principal); I12.9 Hypertensive chronic kidney disease with stage 1 through stage 4 chronic kidney disease, or unspecified chronic kidney disease; N18.9 Chronic kidney disease, unspecified; F03.90 Unspecified dementia, unspecified severity, without behavioral disturbance, psychotic disturbance, mood disturbance, and anxiety; R31.0 Gross hematuria; T83.83XA Hemorrhage due to genitourinary prosthetic devices, implants and grafts, initial encounter; R77.8 Other specified abnormalities of plasma proteins; R63.0 Anorexia; R64 Cachexia; R53.83 Other fatigue; R34 Anuria and oliguria; E78.5 Hyperlipidemia, unspecified; H40.9 Unspecified glaucoma; I45.10 Unspecified right bundle-branch block; M19.90 Unspecified osteoarthritis, unspecified site; R41.3 Other amnesia; M79.604 Pain in right leg; Z20.822 Contact with and (suspected) exposure to COVID-19; Z71.3 Dietary counseling and surveillance; Z66 Do not resuscitate; N40.0 Benign prostatic hyperplasia without lower urinary tract symptoms; Z85.46 Personal history of malignant neoplasm of prostate; Z85.828 Personal history of other malignant neoplasm of skin; Z92.3 Personal history of irradiation; Z77.090 Contact with and (suspected) exposure to asbestos; Z96.643 Presence of artificial hip joint, bilateral; Z79.899 Other long term (current) drug therapy; Z82.49 Family history of ischemic heart disease and other diseases of the circulatory system
CPT/HCPCS: 96365; 96366 ×2; 96372 ×3; 96375; 96361; 99285; 36415; 93005; 80053; 80048 ×2; 84443; 82607; 83605; 83735 ×2; 84484 ×2; 85025 ×3; 85610; 85730; 81001; 87040; 87635; 71045; 76770; 70450; G0378 ×3; G0480; J0696 ×3; J2270; J1644 ×3; 80320

== ENCOUNTER 2021-03-29 17:23 | Emergency (ER) | payer MEDICARE ==
[2021-03-29 17:39] VITALS: BP 112/67; PULSE 73; RESP 16; TEMP 96.7
[2021-03-29] MEDS ORDERED: MORPHINE SULFATE 4 MG/ML SYRINGE IV STA (19:12)
[2021-03-29 20:26] LABS: Appearance,Urine Clear (Clear); Bilirubin,Urine 1+ (Negative); Blood,Urine Negative (Negative); Color,Urine Yellow; Glucose,Urine (UA) Negative (Negative); Hyaline Casts,Urine 13 /lpf (0-2); Ketones,Urine Trace (Negative); Leukocyte Esterase,Urine Negative (Negative); Mucus,Urine Few /hpf; Nitrite,Urine Negative (Negative); PH, Urine 5.5 (5.0-8.0); Protein,Urine 1+ (Negative); RBC,Urine <1 /hpf (0-5); Specific Gravity,Urine 1.028 (1.001-1.035); Squamous Epithelial Cell,Urine <1 /hpf (0-4); WBC,Urine 3 /hpf (0-5)
--- NOTE | 2021-03-29 21:29 | ED ---
General Adult HPI - General Source: EMS Mode of arrival: EMS Limitations: altered mental status, physical limitation <Barbara Joaquin - Last Filed: 03/29/21 21:35> <Vinicius Nicolas - Last Filed: 03/30/21 00:40> - General Chief complaint: Fall Stated complaint: Abd Pain - History of Present Illness Initial comments: 86-year-old male with history of dementia and kidney failure on hospice presents to the emergency department with reported abdominal pain. Pain started earlier today. Reported that it was on his right flank and right lower quadrant. provides most the history and states that it was fairly sudden onset. No asso ciated nausea or vomiting. Patient has not eaten very much in the past several weeks. He has had minimal bowel movements. Previous history of appendectomy. His hospice nurse was at the [facility] give him 4 mg of morphine 4:30 pm. He recommended that he come in to the emergency department. Family resting diagnosis of pain (Barbara Joaquin) - Related Data Home Medications Medication Instructions Recorded Confirmed Clopidogrel Bisulfate [Clopidogrel] 75 mg PO DAILY 01/31/15 03/29/21 Donepezil HCl [Aricept] 10 mg PO HS 09/17/15 03/29/21 Brinzolamide/Brimonidine Tart 1 drop LEFT EYE TID@0906,1500,2100 03/04/21 03/29/21 [Simbrinza 1%-0.2% Eye Drops] Mirtazapine [Remeron] 15 mg PO HS 03/04/21 03/29/21 Timolol 0.5% Ophth Soln [Timoptic 1 drop LEFT EYE BID@0900,2100 03/04/21 03/29/21 0.5% Ophth Soln] Previous Rx's Medication Instructions Recorded polyethylene glycoL 3350 [Miralax] 17 gm PO DAILY #60 packet 03/30/21 Allergies Allergy/AdvReac Type Severity Reaction Status Date / Time No Known Allergies Allergy Verified 03/29/21 18:58 Review of Systems ROS Other: All systems not noted in ROS Statement are negative. <Barbara Joaquin - Last Filed: 03/29/21 21:35> ROS Other: All systems not noted in ROS Statement are negative. <Vinicius Nicolas - Last Filed: 03/30/21 00:40> ROS Statement: Those systems with pertinent positive or pertinent negative responses have been documented in the HPI. Past Medical History Past Medical History: Cancer, Dementia, Hyperlipidemia, Hypertension, Memory Impairment, Osteoarthritis (OA), Prostate Disorder, Vascular Disorder Additional Past Medical History / Comment(s): Hx prostate and skin cancer; PAST ASBESTOS EXPOSURE. C/O Pain in Rt leg w/ walking. History of Any Multi-Drug Resistant Organisms: None Reported Past Surgical History: Appendectomy, Joint Replacement Additional Past Surgical History / Comment(s): 02/12/15 Total L hip arthroplasty. Exc skin CA face, mass removed from base of spine, vascular surgery lt leg, jabari cataracts, 09-23-16 TOTAL RT HIP, hemorrhoidectomy Past Anesthesia/Blood Transfusion Reactions: No Reported Reaction Past Psychological History: No Psychological Hx Reported Smoking Status: Never smoker Past Alcohol Use History: Occasional Past Drug Use History: None Reported - Past Family History Brother(s) Family Medical History: Deep Vein Thrombosis (DVT) Mother History Unknown: Yes Family Medical History: No Reported History Father Additional Family Medical History / Comment(s): AT AGE 50 <Barbara Joaquin Harpal - Last Filed: 03/29/21 21:35> General Exam Limitations: altered mental status, physical limitation General appearance: alert, in no apparent distress Head exam: Present: atraumatic, normocephalic, normal inspection Eye exam: Present: normal appearance, PERRL, EOMI. Absent: scleral icterus, conjunctival injection, periorbital swelling ENT exam: Present: normal exam, mucous membranes moist Neck exam: Present: normal inspection. Absent: tenderness, meningismus, lymphadenopathy Respiratory exam: Present: normal lung sounds bilaterally. Absent: respiratory distress, wheezes, rales, rhonchi, stridor Cardiovascular Exam: Present: regular rate, normal rhythm, normal heart sounds. Absent: systolic murmur, diastolic murmur, rubs, gallop, clicks GI/Abdominal exam: Present: soft, normal bowel sounds. Absent: distended, tenderness, guarding, rebound, rigid Extremities exam: Present: normal inspection, full ROM, normal capillary refill. Absent: tenderness, pedal edema, joint swelling, calf tenderness Back exam: Present: normal inspection Neurological exam: Present: alert, oriented X3, CN II-XII intact Psychiatric exam: Present: normal affect, normal mood Skin exam: Present: warm, dry, intact, normal color. Absent: rash <Barbara Joaquin Harpal - Last Filed: 03/29/21 21:35> General appearance: alert, in no apparent distress, lethargic, cachectic Head exam: Present: atraumatic, normocephalic, normal inspection Eye exam: Present: normal appearance, PERRL, EOMI. Absent: scleral icterus, conjunctival injection, periorbital swelling ENT exam: Present: normal exam, mucous membranes moist Neck exam: Present: normal inspection. Absent: tenderness, meningismus, lymphadenopathy Respiratory exam: Present: normal lung sounds bilaterally. Absent: respiratory distress, wheezes, rales, rhonchi, stridor Cardiovascular Exam: Present: regular rate, normal rhythm, normal heart sounds. Absent: systolic murmur, diastolic murmur, rubs, gallop, clicks GI/Abdominal exam: Present: soft, normal bowel sounds. Absent: distended, tenderness, guarding, rebound, rigid Extremities exam: Present: normal inspection, full ROM, normal capillary refill. Absent: tenderness, pedal edema, joint swelling, calf tenderness Back exam: Present: normal inspection Neurological exam: Present: alert, oriented X3, CN II-XII intact Psychiatric exam: Present: normal affect, normal mood Skin exam: Present: warm, dry, intact, normal color. Absent: rash <Vinicius Nicolas - Last Filed: 03/30/21 00:40> Course <Vinicius Nicolas - Last Filed: 03/30/21 00:40> Vital Signs 03/29/21 17:31 Temperature 96.7 F L Pulse Rate 73 Respiratory 16 Rate Blood Pressure 112/67 O2 Sat by Pulse 97 Oximetry - Reevaluation(s) Reevaluation #1: 03/30/21 00:34 medical record is reviewed (Vinicius Nicolas) Reevaluation #2: 03/30/21 00:36 Patient had no success after enema (Vinicius Nicolas) Reevaluation #3: 03/30/21 00:37 Patient was able to manually disimpacted here in the emergency department (Vinicius Nicolas) EKG Findings - EKG Comments: EKG Findings:: ED demonstrates a sinus rhythm with a rate of 68. QRS 136. QTC of 465. Right bundle branch block. No acute ST segment elevations or depressions <Barbara Joaquin - Last Filed: 03/29/21 21:35> Procedures - Rectal Disimpaction Consent Obtained: verbal consent Indication: fecal impaction Procedural Sedation: No Sedation/Analgesia: none Technique: manual disimpaction with gloved finger Result: significant stool output Complications: pain Patient Tolerated Procedure: well <Vinicius Nicolas - Last Filed: 03/30/21 00:40> Medical Decision Making <Barbara Joaquin - Last Filed: 03/29/21 21:35> - Lab Data Result diagrams: 03/29/21 Unknown - Radiology Data Radiology results: report reviewed (CT of the abdomen and pelvis does show significant amount of stool), image reviewed <Vinicius Nicolas - Last Filed: 03/30/21 00:40> - Medical Decision Making The patient was placed into room 20. Thorough history and physical exam was performed. IV is established. Patient started on 75 mL of saline per hour and give 4 mg of morphine. Laboratory studies are conducted. CT without contrast ordered. Patient will be signed out to Dr. Nicolas (Barbara Joaquin) 86 male to the emergency department today. Patient presents today for evaluation regards to abdominal pain persistent pain. Patient did have significant amount of stool in colon, patient given antibiotics, disimpaction will be discharged home on bowel regimen attempting to increase fluid intake. (Vinicius Nicolas) - Lab Data Lab Results 03/29/21 03/29/21 03/29/21 Range/Units 19:00 Unknown Unknown WBC 7.5 (3.8-10.6) k/uL RBC 4.28 L (4.30-5.90) m/uL Hgb 14.0 D (13.0-17.5) gm/dL Hct 43.6 (39.0-53.0) % MCV 101.9 H (80.0-100.0) fL MCH 32.6 (25.0-35.0) pg MCHC 32.0 (31.0-37.0) g/dL RDW 13.0 (11.5-15.5) % Plt Count 229 (150-450) k/uL MPV 8.4 Neutrophils % 85 % Lymphocytes % 8 % Monocytes % 4 % Eosinophils % 1 % Basophils % 1 % Neutrophils # 6.4 (1.3-7.7) k/uL Lymphocytes # 0.6 L (1.0-4.8) k/uL Monocytes # 0.3 (0-1.0) k/uL Eosinophils # 0.1 (0-0.7) k/uL Basophils # 0.0 (0-0.2) k/uL Macrocytosis Slight PT 9.8 (9.0-12.0) sec INR 0.9 (<1.2) APTT 18.3 L (22.0-30.0) sec Urine Color Yellow Urine Appearance Clear (Clear) Urine pH 5.5 (5.0-8.0) Ur Specific Savery 1.028 (1.001-1.035) Urine Protein 1+ H (Negative) Urine Glucose (UA) Negative (Negative) Urine Ketones Trace H (Negative) Urine Blood Negative (Negative) Urine Nitrite Negative (Negative) Urine Bilirubin 1+ H (Negative) Urine Urobilinogen 3.0 (<2.0) mg/dL Ur Leukocyte Esterase Negative (Negative) Urine RBC <1 (0-5) /hpf Urine WBC 3 (0-5) /hpf Ur Squamous Epith Cells <1 (0-4) /hpf Hyaline Casts 13 H (0-2) /lpf Urine Mucus Few H (None) /hpf Disposition <Barbara Joaquin A - Last Filed: 03/29/21 21:35> Is patient prescribed a controlled substance at d/c from ED?: No <Vinicius Nicolas - Last Filed: 03/30/21 00:40> Clinical Impression: Constipation Disposition: HOME SELF-CARE Condition: Good Instructions (If sedation given, give patient instructions): Constipation (ED) Prescriptions: polyethylene glycoL 3350 [Miralax] 17 gm PO DAILY #60 packet Referrals: Sandra Ivey MD [Primary Care Provider] - 1-2 days
[2021-03-29 21:32] LABS: Basophils % (A) 1 %; Eosinophils # (A) 0.1 k/uL (0-0.7); Eosinophils % (A) 1 %; HCT 43.6 % (39.0-53.0); Lymphocytes # (A) 0.6 k/uL (1.0-4.8); Lymphocytes % (A) 8 %; MCH 32.6 pg (25.0-35.0); MCV 101.9 fL (80.0-100.0); Macrocytosis Slight; Mean Platelet Volume 8.4; Monocytes # (A) 0.3 k/uL (0-1.0); Monocytes % (A) 4 %; Neutrophils # (A) 6.4 k/uL (1.3-7.7); Neutrophils % (A) 85 %; Platelet Count 229 k/uL (150-450); RBC 4.28 m/uL (4.30-5.90); WBC 7.5 k/uL (3.8-10.6)
[2021-03-29] MEDS ORDERED: SODIUM CHLORIDE 0.9% 1,000 ML IV SCH (21:45)
[2021-03-29 21:48] LABS: INR 0.9 (<1.2); Prothrombin Time 9.8 sec (9.0-12.0)
[2021-03-29 21:49] LABS: Partial Thromboplastin Time 18.3 sec (22.0-30.0)
--- NOTE | 2021-03-29 22:33 | CT ---
EXAMINATION TYPE: CT abdomen pelvis wo con DATE OF EXAM: 03/29/2021 COMPARISON: 11/20/2019 HISTORY: abdominal/flank pain, hx of prostate ca CT DLP: 606.6 mGycm Automated exposure control for dose reduction was used. Lung bases are clear of consolidation. Heart size is normal. There is no pericardial effusion. There is no pleural effusion. Liver is intact. There is interposition of the hepatic flexure of the colon. Spleen is intact. There is no evidence of pancreatic mass. Stomach is intact. There is no adrenal mass. Kidneys show no hydronephrosis. There is no evidence of a renal mass. There is no retroperitoneal adenopathy. Abdominal aorta is atheromatous. There is bilateral hip prosthesis with metal artifact. There is slight lumbar dextroscoliosis. There is mild thoracolumbar levoscolios is. Detail in the pelvis is obscured significantly by metal artifact. Bladder appears to distends smoothl y. There is retained fecal material in the rectum that measures 6.5 cm. I see no definite pelvic mass . There is no sign of mesenteric edema. There is no ascites or free air. There is no bowel obstruction. There is trace amount of fluid in the right paracolic gutter. There are multiple sigmoid diverticula . I do not see definite sign of diverticulitis. IMPRESSION: There is clearing of the small pleural effusions compared to old exam. No evidence of renal mass or o bstruction. Mild to moderate constipation. Detail in the pelvis limited. There is trace free fluid in the right paracolic gutter increased compared to old exam.
[2021-03-30] MEDS ORDERED: SENNOSIDES-DOCUSATE SODIUM 1 EACH TAB PO STA (00:33)
[2021-03-30] MEDS ORDERED: GLYCERIN ADULT SUPPOSITORY 1 EACH RECTAL STA (00:33)
== END 2021-03-30 01:04 | disposition home or self-care (01) ==
LOC: EC 17:23
DX: K59.00 Constipation, unspecified (principal); I10 Essential (primary) hypertension; E78.5 Hyperlipidemia, unspecified; M19.90 Unspecified osteoarthritis, unspecified site; F03.90 Unspecified dementia, unspecified severity, without behavioral disturbance, psychotic disturbance, mood disturbance, and anxiety; Z79.899 Other long term (current) drug therapy
CPT/HCPCS: 36415; 93005; 85025; 85610; 85730; 81001; 74176; 99284; 96374; J2270